=== PATIENT | male | born 1950 | race Caucasian/White ===

== ENCOUNTER 2018-08-10 22:43 | Inpatient (IN) ==
--- NOTE | 2018-08-10 22:58 | Emergency Department Note ---
Disposition Clinical Impression: Elevated troponin Sepsis Qualifiers: Sepsis type: sepsis due to unspecified organism Qualified Code(s): A41.9 - Sepsis, unspecified organism Urinary tract infection Qualifiers: Urinary tract infection type: acute cystitis Hematuria presence: with hematuria Qualified Code(s): N30.01 - Acute cystitis with hematuria Disposition: Admitted As Inpatient Condition: Fair General Adult HPI - General Stated complaint: fall, altered mental status Time Seen by Provider: 08/10/18 22:43 Nursing Notes Reviewed: Yes Vital Signs Reviewed: Yes - Related Data Home Medications Medication Instructions Recorded Confirmed Albuterol Sulfate [Albuterol 2 puff IH Q4HR 12/12/15 08/11/18 Inhaler] Insulin ASPART [NovoLOG] 15 - 20 unit SQ TIDWM 12/12/15 11/03/17 Insulin Glargine [Lantus] 65 unit SQ HS 12/12/15 08/11/18 Losartan Potassium [Cozaar] 100 mg PO DAILY 12/12/15 08/11/18 Acetaminophen [Tylenol] 500 mg PO BID 12/15/15 08/11/18 Albuterol Sulfate [Proair 90 mcg IH 01/17/16 Respiclick] Carvedilol [Coreg] 12.5 mg PO BID 01/17/16 08/11/18 Fenofibrate Nanocrystallized 145 mg PO QDPC 01/17/16 08/11/18 [Tricor] Furosemide [Lasix] 40 mg PO BID 01/17/16 08/11/18 Gabapentin [Neurontin] 300 mg PO BID 01/17/16 08/11/18 Pravastatin Sodium [Pravachol] 40 mg PO QDPC 01/17/16 08/11/18 Ascorbate Calcium 500 PO 08/11/18 Calcium 500 mg-Vit D3 600 Unit 500 PO 08/11/18 Cyanocobalamin (B-12) [Vitamin B12] 1,000 mcg PO DAILY 08/11/18 08/11/18 Fish Oil/Om-3/E/Folic/B6-B12 1,000 mg 08/11/18 Allergies Allergy/AdvReac Type Severity Reaction Status Date / Time moxifloxacin [From Avelox] Allergy See Verified 11/03/17 13:21 Comments Neomycin Allergy See Verified 11/03/17 13:21 Comments Penicillins Allergy See Verified 07/07/18 13:21 Comments Sulfa (Sulfonamide Allergy See Verified 11/03/17 13:21 Antibiotics) Comments Past Medical History - Past Medical History Medical history: Reports: non-contributory Psychiatric history: Reports: anxiety - Social History Smoking Status: Never smoker Smokeless Tobacco Status: No Alcohol use: Reports: occasionally Drug use: Reports: none Course Vital Signs Temperature 102.7 F H 08/10/18 22:47 Pulse Rate 93 08/10/18 22:47 Respiratory Rate 20 08/10/18 22:47 Blood Pressure 156/71 08/10/18 22:47 O2 Sat by Pulse Oximetry 92 08/10/18 22:47 Temperature 100.9 F H 08/11/18 04:15 Pulse Rate 83 08/11/18 04:15 Respiratory Rate 18 08/11/18 04:15 Blood Pressure 136/65 08/11/18 04:15 O2 Sat by Pulse Oximetry 99 08/11/18 04:15 Oxygen Delivery Oxygen Delivery Nasal Cannula Medical Decision Making - Medical Records Medical records reviewed: Yes I reviewed the patient's medical records. - Lab Data Lab results reviewed: Yes I reviewed the patient's lab results. Result diagrams: 08/11/18 04:42 08/11/18 04:42 Lab Results 08/10/18 08/10/18 08/10/18 Range/Units 23:06 23:06 23:12 WBC (4.3-11.1) K/mcL RBC (4.19-5.50) M/mcL Hgb (12.9-16.9) g/dL Hct (37.5-50.1) % MCV (83.0-100.0) fL MCH (28.0-33.3) pg MCHC (31.6-35.5) g/dL RDW (11.5-14.5) % Plt Count (140-400) K/mcL MPV (9.4-12.4) fL Immature Gran % (0-4) % Seg Neutrophils % % Lymphocytes % % Monocytes % % Eosinophils % % Basophils % % Neutrophils # (1.6-8.9) K/mcL Lymphocytes # (0.6-4.6) K/mcL Monocytes # (0.0-1.3) K/mcL Eosinophils # (0.0-0.6) K/mcL Basophils # (0.0-0.2) K/mcL PT 13.9 H (9.4-12.1) Seconds INR 1.2 APTT 18.2 L (26.0-36.0) Seconds Sodium 130 L (136-145) mEq/L Potassium 4.2 (3.5-5.1) mEq/L Chloride 97 L (98-107) mEq/L Carbon Dioxide 23 (23-29) mEq/L BUN 45 H (8-23) mg/dL Creatinine 3.35 H (0.70-1.30) mg/dL Est GFR ( Amer) 22 L (> 60) Est GFR (Non-Af Amer) 18 L (> 60) BUN/Creatinine Ratio 13 (6-26) Glucose 297 H (70-105) mg/dL Calculated Osmolality 293 (280-300) Lactic Acid 1.3 (0.5-2.2) mmol/L Calcium 9.4 (8.6-10.3) mg/dL Phosphorus 2.5 L (2.7-4.5) mg/dL Magnesium 2.2 (1.6-2.6) mg/dL Total Bilirubin 0.6 (0.3-1.0) mg/dL Direct Bilirubin 0.2 (0.0-0.2) mg/dL Indirect Bilirubin 0.4 (0.0-1.2) mg/dL AST 40 H (13-39) Units/L ALT 18 (7-52) Units/L Alkaline Phosphatase 47 (34-104) Units/L Troponin I 0.34 H* (< 0.04) ng/mL Serum Total Protein 7.3 (6.4-8.9) g/dL Albumin 3.8 (3.5-5.7) g/dL Globulin 3.5 (2.4-3.5) g/dL Albumin/Globulin Ratio 1.1 (1.1-2.2) Lipase 46 (11-82) Units/L Urine Color (Yellow) Urine Clarity (Clear) Urine pH (5.0-8.0) pH Units Ur Specific [place] (1.010-1.025) Urine Protein (Neg-Trace) mg/dL Urine Glucose (UA) (Normal) mg/dL Urine Ketones (Negative) mg/dL Urine Blood (Negative) Urine Nitrite (Negative) Urine Bilirubin (Negative) Urine Urobilinogen (Normal) mg/dL Ur Leukocyte Esterase (Negative) Urine Microscopic RBC (0-3) per hpf Urine Microscopic WBC (0-3) per hpf Ur Squamous Epith Cells (None-Few) per lpf Urine Bacteria (None-Few) per hpf Hyaline Casts (None-Few) per lpf Ur Culture Indicated? (NO) Specimen Rejected 08/10/18 08/10/18 08/11/18 Range/Units 23:17 23:56 00:26 WBC 12.3 H (4.3-11.1) K/mcL RBC 3.44 L (4.19-5.50) M/mcL Hgb 10.4 L (12.9-16.9) g/dL Hct 31.9 L (37.5-50.1) % MCV 92.7 (83.0-100.0) fL MCH 30.2 (28.0-33.3) pg MCHC 32.6 (31.6-35.5) g/dL RDW 16.1 H (11.5-14.5) % Plt Count 163 (140-400) K/mcL MPV 10.1 (9.4-12.4) fL Immature Gran % 0.9 (0-4) % Seg Neutrophils % 86.1 % Lymphocytes % 6.3 % Monocytes % 6.5 % Eosinophils % 0.1 % Basophils % 0.1 % Neutrophils # 10.6 H (1.6-8.9) K/mcL Lymphocytes # 0.8 (0.6-4.6) K/mcL Monocytes # 0.8 (0.0-1.3) K/mcL Eosinophils # 0.0 (0.0-0.6) K/mcL Basophils # 0.0 (0.0-0.2) K/mcL PT (9.4-12.1) Seconds INR APTT (26.0-36.0) Seconds Sodium (136-145) mEq/L Potassium (3.5-5.1) mEq/L Chloride (98-107) mEq/L Carbon Dioxide (23-29) mEq/L BUN (8-23) mg/dL Creatinine (0.70-1.30) mg/dL Est GFR ( Amer) (> 60) Est GFR (Non-Af Amer) (> 60) BUN/Creatinine Ratio (6-26) Glucose (70-105) mg/dL Calculated Osmolality (280-300) Lactic Acid (0.5-2.2) mmol/L Calcium (8.6-10.3) mg/dL Phosphorus (2.7-4.5) mg/dL Magnesium (1.6-2.6) mg/dL Total Bilirubin (0.3-1.0) mg/dL Direct Bilirubin (0.0-0.2) mg/dL Indirect Bilirubin (0.0-1.2) mg/dL AST (13-39) Units/L ALT (7-52) Units/L Alkaline Phosphatase (34-104) Units/L Troponin I (< 0.04) ng/mL Serum Total Protein (6.4-8.9) g/dL Albumin (3.5-5.7) g/dL Globulin (2.4-3.5) g/dL Albumin/Globulin Ratio (1.1-2.2) Lipase (11-82) Units/L Urine Color Yellow (Yellow) Urine Clarity Hazy (Clear) Urine pH 7.0 (5.0-8.0) pH Units Ur Specific [place] 1.008 L (1.010-1.025) Urine Protein 100 H (Neg-Trace) mg/dL Urine Glucose (UA) 250 H (Normal) mg/dL Urine Ketones Negative (Negative) mg/dL Urine Blood Large H (Negative) Urine Nitrite Negative (Negative) Urine Bilirubin Negative (Negative) Urine Urobilinogen Normal (Normal) mg/dL Ur Leukocyte Esterase Small H (Negative) Urine Microscopic RBC 5-15 H (0-3) per hpf Urine Microscopic WBC 50-100 H (0-3) per hpf Ur Squamous Epith Cells Moderate H (None-Few) per lpf Urine Bacteria Many H (None-Few) per hpf Hyaline Casts None Seen (None-Few) per lpf Ur Culture Indicated? YES A (NO) Specimen Rejected Clotted - Radiology Data Radiology results reviewed: Yes I reviewed the patient's radiology results. Chest X-Ray 08/10/18 22:51 IMPRESSION: No acute abnormality D/ / Buck Rdz / Buck Rdz Interpreting Provider: Buck Rdz Abdomen/Pelvis CT 08/11/18 00:01 IMPRESSION: Circumferential urinary bladder wall thickening with mild surrounding fat stranding, suspicious for cystitis. Mild left hydroureter with ureteritis but no appreciable obstructing stone. This could potentially indicate ascending urinary tract infection. Cholelithiasis without evidence of cholecystitis. Mild hepatomegaly with steatosis. D/ / Omega Robledo / Omega Robledo Interpreting Provider: Omega Robledo Head CT 08/11/18 00:01 IMPRESSION: 1. No intracranial hemorrhage or acute transcortical infarct. 2. Mild to moderate white matter hypoattenuation, likely the sequela of chronic small vessel ischemia. If there is persistent clinical concern for acute ischemia, MRI would be the more sensitive modality. 3. Generalized parenchymal volume loss. D/ / Mt Patel / Mt Patel Interpreting Provider: Mt Patel - EKG Data EKG #1 EKG attestation: Yes I reviewed and interpreted this EKG. EKG results narrative: EKG shows normal sinus rhythm with ventricular rate of 93. Low voltage in precordial leads. No significant ST segment elevation or depression. No arrhythmia or ectopy. No significant change from prior EKG dated 03/06/2016. Critical Care Time Critical Care Time: Yes Total Critical Care Time: 45 Attestation: Critical care performed: Time is exclusive of separately billable procedures. Time includes: direct patient care, patient reassessment, coordination of patient care, interpretation of data (laboratory data, radiology data, and respiratory data), review of patient's medical records, medical consultation and documentation of patient care. Procedures included in critical care time: Procedures excluded from critical care time: Attestation Statement - Attestation Attestation: I, Navid Gimenez MD, personally evaluated this patient and discussed their management with the resident physician. I reviewed the resident's note and agree with the documented findings, medical decision making, and plan of care. 68-year-old male presents to the emergency department by EMS. reports that she has been staying with their son for the past few days because he had surgery and the patient had been staying at home alone. She states that when she talked him on the phone over the past few days he did not sound right and sounded week and a little confused. She came home this afternoon and he was just lying on the couch. She had to help him to the bathroom and gave him a bath. This is not normal. She also states he would need or drink anything. He felt very hot and she gave him some Tylenol. He then apparently fell forward in the floor on his knees and elbows and was unable to get up. EMS reports on their arrival the patient was confused and oriented to person only. By the time they arrived here he was more alert and oriented to person and place. He was also incontinent of urine which is not normal for him. He does admit to some mild pain in the left mid chest. No significant cardiac history. He admits to mild shortness of breath. He does not appear short of breath. He has had a mild cough. On examination patient is a well-developed obese elderly male in no acute distress. He is alert and oriented to person and place but not time. There is no cyanosis or diaphoresis. Mucous membranes are very dry. Chest is nontender to palpation. Breath sounds are clear and equal bilaterally with no rales or wheezes noted. Heart regular with a slight tachycardia. Abdomen soft and nontender with normal bowel sounds. Severe sepsis suspected on arrival. Temperature 102.7, tachycardia, altered mental status. Source is most likely urinary. EKG shows normal sinus rhythm with ventricular rate of 93. Low voltage in precordial leads. No significant ST segment elevation or depression. No arrhythmia or ectopy. No significant change from prior EKG dated 03/06/2016. Chest x-ray. CT the abdomen and pelvis consistent with cystitis and ureteritis suggesting ascending urinary tract infection. Labs reviewed. Lactic acid normal. Elevated creatinine and elevated troponin. Blood cultures obtained. IV Rocephin initiated. The hospitalist, Dr. Galloway, was consulted and accepted admission of the patient.
[2018-08-10 23:30] LABS: INR 1.2; Prothrombin Time 13.9 Seconds (9.4-12.1)
[2018-08-10] MEDS: 0.9 % Sodium Chloride 1,000 ML IVC SCH (23:35)
[2018-08-10 23:45] LABS: Albumin 3.8 g/dL (3.5-5.7); Albumin/Globulin Ratio 1.1 (1.1-2.2); Bilirubin,Direct 0.2 mg/dL (0.0-0.2); Bilirubin,Indirect 0.4 mg/dL (0.0-1.2); Bilirubin,Total 0.6 mg/dL (0.3-1.0); Calcium 9.4 mg/dL (8.6-10.3); Globulin 3.5 g/dL (2.4-3.5); Magnesium 2.2 mg/dL (1.6-2.6); Phosphorous 2.5 mg/dL (2.7-4.5); Potassium 4.2 mEq/L (3.5-5.1); Total Protein 7.3 g/dL (6.4-8.9)
[2018-08-10 23:49] LABS: Troponin I 0.34 ng/mL (< 0.04)
--- NOTE | 2018-08-10 23:51 | Emergency Department Note ---
Disposition Clinical Impression: Elevated troponin Sepsis Qualifiers: Sepsis type: sepsis due to unspecified organism Qualified Code(s): A41.9 - Sepsis, unspecified organism Urinary tract infection Qualifiers: Urinary tract infection type: acute cystitis Hematuria presence: with hematuria Qualified Code(s): N30.01 - Acute cystitis with hematuria Disposition: Admitted As Inpatient Condition: Fair Referrals: Susie Blake [employer] C[employer] DIPPER [Primary Care Provider] - Time of Disposition: 02:22 Altered Mental Status HPI - General Chief Complaint: ED Altered Mental Status Stated Complaint: fall, altered mental status Time Seen by Provider: 08/10/18 22:43 Source: family, EMS Mode of arrival: EMS Limitations: altered mental status Nursing Notes Reviewed: Yes Vital Signs Reviewed: Yes - History of Present Illness HPI Narrative: 68-year-old male penis to the emergency department with a fall and altered mental status. Says been home alone as they have family that has having other medical issues the is been taking care of for about 2 or 3 days. Said that she did come on tonight she was lying in bed he was on the couch she said she got up andhe was on the ground and had soiled himself. They noticed he was very warm to touch they said to call EMS. Patient states that he is not having any complaints other than mild chest pain mild cough mild abdominal pain and some burning with his urination. He normally is not incontinent but was while he was lying on the ground. He stated did not hit his head did not lose consciousness. Patient otherwise has no other complaints at this time. He does have history of diabetes, ACS with cardiac stent placement. Patient otherwise has no other complaints at this time. - Related Data Home Medications Medication Instructions Recorded Confirmed Albuterol Sulfate [Albuterol 2 puff IH Q4HR 12/12/15 11/03/17 Inhaler] Insulin ASPART [NovoLOG] 15 - 20 unit SQ TIDWM 12/12/15 11/03/17 Insulin Glargine [Lantus] 65 unit SQ HS 12/12/15 11/03/17 Losartan Potassium [Cozaar] 100 mg PO DAILY 12/12/15 11/03/17 Acetaminophen [Tylenol] 500 mg PO BID 12/15/15 11/03/17 Albuterol Sulfate [Proair 90 mcg IH 01/17/16 Respiclick] Carvedilol [Coreg] 12.5 mg PO BID 01/17/16 11/03/17 Fenofibrate Nanocrystallized 145 mg PO QDPC 01/17/16 11/03/17 [Tricor] Furosemide [Lasix] 40 mg PO BID 01/17/16 11/03/17 Gabapentin [Neurontin] 300 mg PO BID 01/17/16 11/03/17 Pravastatin Sodium [Pravachol] 40 mg PO QDPC 01/17/16 11/03/17 Ascorbate Calcium 500 PO 08/11/18 Calcium 500 mg-Vit D3 600 Unit 500 PO 08/11/18 Fish Oil/Om-3/E/Folic/B6-B12 1,000 mg 08/11/18 Allergies Allergy/AdvReac Type Severity Reaction Status Date / Time moxifloxacin [From Avelox] Allergy See Verified 11/03/17 13:21 Comments Neomycin Allergy See Verified 11/03/17 13:21 Comments Penicillins Allergy See Verified 11/03/17 13:21 Comments Sulfa (Sulfonamide Allergy See Verified 11/03/17 13:21 Antibiotics) Comments All systems ED: reviewed and negative except as stated. Review of Systems: As Per HPI Past Medical History - Past Medical History Attestation: Yes The following information was validated with the patient. Source: patient Medical history: Reports: non-contributory Psychiatric history: Reports: anxiety - Social History Smoking Status: Never smoker Smokeless Tobacco Status: No Alcohol use: Reports: occasionally Drug use: Reports: none Physical Exam - General Limitations: altered mental status General appearance: alert - Head Head exam: atraumatic, normocephalic, normal inspection - Eye Eye exam: Present: normal appearance, PERRL, EOMI - ENT ENT exam: normal exam, normal oropharynx, mucous membranes moist - Neck Neck exam: Present: normal inspection, full ROM, trachea midline - Chest Chest inspection: Present: normal inspection, symmetric chest wall rise - Respiratory Respiratory exam: Present: normal lung sounds bilaterally. Absent: respiratory distress, wheezes, accessory muscle use - Cardiovascular Cardiovascular exam: Present: regular rate, normal rhythm, normal heart sounds - Abdominal Exam Abdominal exam: Present: soft, tenderness (I will tenderness diffusely across the abdomen), normal bowel sounds. Absent: distention, guarding, rebound, rigidity - Extremities Exam Extremities exam: Present: normal inspection, full ROM. Absent: tenderness, pedal edema - Back Exam Back exam: Present: normal inspection, full ROM. Absent: tenderness, CVA tenderness (R), CVA tenderness (L) - Neurological Exam Neurological exam: Present: alert - Expanded Neurological Exam Patient oriented to: Present: person, place, time Coma Scale Eye Opening: Spontaneous Coma Scale Motor Response: Obeys Commands Coma Scale Verbal Response: Confused Coma Scale Total: 14 - Skin Skin exam: Present: warm, dry, intact, normal color Course Course Narrative: Patient does meet severe sepsis criteria. I did give patient full 30 mL/kg bolus of IV fluids. We did get cultures as well as basic labs here we will get CT of his head abdomen. We will also get chest x-ray. We will hold off on giving antibiotics until we get a source of the infection. We will also urinalysis via straight catheterization. Patient most likely will be admitted for further evaluation. Patient did not meet septic shock criteria. His blood pressures been stable while he is here. Vital Signs Temperature 102.7 F H 08/10/18 22:47 Pulse Rate 93 08/10/18 22:47 Respiratory Rate 20 08/10/18 22:47 Blood Pressure 156/71 08/10/18 22:47 O2 Sat by Pulse Oximetry 92 08/10/18 22:47 Temperature 102.7 F H 08/10/18 22:47 Pulse Rate 85 08/11/18 01:42 Respiratory Rate 20 08/11/18 01:42 Blood Pressure 129/74 08/11/18 01:42 O2 Sat by Pulse Oximetry 98 08/11/18 01:42 Oxygen Delivery Oxygen Delivery Room Air Altered Mental Status - [facility] Narrative Medical decision making narrative: 68-year-old male presented here with altered mental status. Urinalysis did show urinary tract infection labs did show leukocytosis he does have kidney failure which is known with the increasing creatinine. CT abdomen and pelvis did show ureteritis as well as a cystitis. No other acute findings. Chest x-ray also was normal head CT was normal. I did give patient a dose of Rocephin here in the emergency department he also received his 30 mL/kg of IV fluids due to being in severe sepsis. He was not in severe septic shock. After receiving this I reevaluated the patient he is now just sepsis and outside of severe sepsis. Patient at this time I feel can be admitted to the hospitalist for further evaluation and IV antibiotics. Patient did have an elevated troponin he has a history of ACS is unknown what his baseline troponin is the patient is not complaining of chest pain at this time. We will recommend trending the troponins when patient is admitted. Patient family both agree. Patient will be admitted to the hospitalist service I spoke with Dr. Galloway who agreed to admit the patient to their service. Chest X-Ray 08/10/18 22:51 IMPRESSION: No acute abnormality D/ / Buck Rdz / Buck Rdz Interpreting Provider: Buck Rdz Abdomen/Pelvis CT 08/11/18 00:01 IMPRESSION: Circumferential urinary bladder wall thickening with mild surrounding fat stranding, suspicious for cystitis. Mild left hydroureter with ureteritis but no appreciable obstructing stone. This could potentially indicate ascending urinary tract infection. Cholelithiasis without evidence of cholecystitis. Mild hepatomegaly with steatosis. D/ / Omega Robledo / Omega Robledo Interpreting Provider: Omega Robledo Head CT 08/11/18 00:01 IMPRESSION: 1. No intracranial hemorrhage or acute transcortical infarct. 2. Mild to moderate white matter hypoattenuation, likely the sequela of chronic small vessel ischemia. If there is persistent clinical concern for acute ischemia, MRI would be the more sensitive modality. 3. Generalized parenchymal volume loss. D/ / Mt Patel / Mt Patel Interpreting Provider: Mt Patel - Medical Records Medical records reviewed: Yes I reviewed the patient's medical records. - Lab Data Lab results reviewed: Yes I reviewed the patient's lab results. Result diagrams: 08/10/18 23:56 08/10/18 23:06 Lab Results 08/10/18 08/10/18 08/10/18 Range/Units 23:06 23:06 23:12 WBC (4.3-11.1) K/mcL RBC (4.19-5.50) M/mcL Hgb (12.9-16.9) g/dL Hct (37.5-50.1) % MCV (83.0-100.0) fL MCH (28.0-33.3) pg MCHC (31.6-35.5) g/dL RDW (11.5-14.5) % Plt Count (140-400) K/mcL MPV (9.4-12.4) fL Immature Gran % (0-4) % Seg Neutrophils % % Lymphocytes % % Monocytes % % Eosinophils % % Basophils % % Neutrophils # (1.6-8.9) K/mcL Lymphocytes # (0.6-4.6) K/mcL Monocytes # (0.0-1.3) K/mcL Eosinophils # (0.0-0.6) K/mcL Basophils # (0.0-0.2) K/mcL PT 13.9 H (9.4-12.1) Seconds INR 1.2 APTT 18.2 L (26.0-36.0) Seconds Sodium 130 L (136-145) mEq/L Potassium 4.2 (3.5-5.1) mEq/L Chloride 97 L (98-107) mEq/L Carbon Dioxide 23 (23-29) mEq/L BUN 45 H (8-23) mg/dL Creatinine 3.35 H (0.70-1.30) mg/dL Est GFR ( Amer) 22 L (> 60) Est GFR (Non-Af Amer) 18 L (> 60) BUN/Creatinine Ratio 13 (6-26) Glucose 297 H (70-105) mg/dL Calculated Osmolality 293 (280-300) Lactic Acid 1.3 (0.5-2.2) mmol/L Calcium 9.4 (8.6-10.3) mg/dL Phosphorus 2.5 L (2.7-4.5) mg/dL Magnesium 2.2 (1.6-2.6) mg/dL Total Bilirubin 0.6 (0.3-1.0) mg/dL Direct Bilirubin 0.2 (0.0-0.2) mg/dL Indirect Bilirubin 0.4 (0.0-1.2) mg/dL AST 40 H (13-39) Units/L ALT 18 (7-52) Units/L Alkaline Phosphatase 47 (34-104) Units/L Troponin I 0.34 H* (< 0.04) ng/mL Serum Total Protein 7.3 (6.4-8.9) g/dL Albumin 3.8 (3.5-5.7) g/dL Globulin 3.5 (2.4-3.5) g/dL Albumin/Globulin Ratio 1.1 (1.1-2.2) Lipase 46 (11-82) Units/L Urine Color (Yellow) Urine Clarity (Clear) Urine pH (5.0-8.0) pH Units Ur Specific [place] (1.010-1.025) Urine Protein (Neg-Trace) mg/dL Urine Glucose (UA) (Normal) mg/dL Urine Ketones (Negative) mg/dL Urine Blood (Negative) Urine Nitrite (Negative) Urine Bilirubin (Negative) Urine Urobilinogen (Normal) mg/dL Ur Leukocyte Esterase (Negative) Urine Microscopic RBC (0-3) per hpf Urine Microscopic WBC (0-3) per hpf Ur Squamous Epith Cells (None-Few) per lpf Urine Bacteria (None-Few) per hpf Hyaline Casts (None-Few) per lpf Ur Culture Indicated? (NO) Specimen Rejected 08/10/18 08/10/18 08/11/18 Range/Units 23:17 23:56 00:26 WBC 12.3 H (4.3-11.1) K/mcL RBC 3.44 L (4.19-5.50) M/mcL Hgb 10.4 L (12.9-16.9) g/dL Hct 31.9 L (37.5-50.1) % MCV 92.7 (83.0-100.0) fL MCH 30.2 (28.0-33.3) pg MCHC 32.6 (31.6-35.5) g/dL RDW 16.1 H (11.5-14.5) % Plt Count 163 (140-400) K/mcL MPV 10.1 (9.4-12.4) fL Immature Gran % 0.9 (0-4) % Seg Neutrophils % 86.1 % Lymphocytes % 6.3 % Monocytes % 6.5 % Eosinophils % 0.1 % Basophils % 0.1 % Neutrophils # 10.6 H (1.6-8.9) K/mcL Lymphocytes # 0.8 (0.6-4.6) K/mcL Monocytes # 0.8 (0.0-1.3) K/mcL Eosinophils # 0.0 (0.0-0.6) K/mcL Basophils # 0.0 (0.0-0.2) K/mcL PT (9.4-12.1) Seconds INR APTT (26.0-36.0) Seconds Sodium (136-145) mEq/L Potassium (3.5-5.1) mEq/L Chloride (98-107) mEq/L Carbon Dioxide (23-29) mEq/L BUN (8-23) mg/dL Creatinine (0.70-1.30) mg/dL Est GFR ( Amer) (> 60) Est GFR (Non-Af Amer) (> 60) BUN/Creatinine Ratio (6-26) Glucose (70-105) mg/dL Calculated Osmolality (280-300) Lactic Acid (0.5-2.2) mmol/L Calcium (8.6-10.3) mg/dL Phosphorus (2.7-4.5) mg/dL Magnesium (1.6-2.6) mg/dL Total Bilirubin (0.3-1.0) mg/dL Direct Bilirubin (0.0-0.2) mg/dL Indirect Bilirubin (0.0-1.2) mg/dL AST (13-39) Units/L ALT (7-52) Units/L Alkaline Phosphatase (34-104) Units/L Troponin I (< 0.04) ng/mL Serum Total Protein (6.4-8.9) g/dL Albumin (3.5-5.7) g/dL Globulin (2.4-3.5) g/dL Albumin/Globulin Ratio (1.1-2.2) Lipase (11-82) Units/L Urine Color Yellow (Yellow) Urine Clarity Hazy (Clear) Urine pH 7.0 (5.0-8.0) pH Units Ur Specific [place] 1.008 L (1.010-1.025) Urine Protein 100 H (Neg-Trace) mg/dL Urine Glucose (UA) 250 H (Normal) mg/dL Urine Ketones Negative (Negative) mg/dL Urine Blood Large H (Negative) Urine Nitrite Negative (Negative) Urine Bilirubin Negative (Negative) Urine Urobilinogen Normal (Normal) mg/dL Ur Leukocyte Esterase Small H (Negative) Urine Microscopic RBC 5-15 H (0-3) per hpf Urine Microscopic WBC 50-100 H (0-3) per hpf Ur Squamous Epith Cells Moderate H (None-Few) per lpf Urine Bacteria Many H (None-Few) per hpf Hyaline Casts None Seen (None-Few) per lpf Ur Culture Indicated? YES A (NO) Specimen Rejected Clotted - Radiology Data Radiology results reviewed: Yes I reviewed the patient's radiology results. - EKG Data EKG attestation: Yes I reviewed and interpreted this EKG. EKG results narrative: EKG done at 2254 review myself and attending shows sinus rhythm at a rate of 93, IA 149, QRS 108, QTC 443. There is no acute ST changes no acute T-wave changes no other signs of ischemia. No hypertrophy, heart strain, heart block. No WPW/Brugada/HOCM. EKG unchanged when compared with old one done on 03/06/16 TPA Checklist - LKW: 3-4.5 hrs Add. Warnings/Precautions Patient/family understanding: The patient/family members have been counseled and understood the risk, benefit, and alternatives of treatment. Sepsis Reassessment Note - Evaluation Sepsis Screen: No Definite Risk Current Stage of Sepsis: sepsis Possible Source of Sepsis: genitourinary - Focused Exam Date of Encounter: 08/11/18 Time of Encounter: 01:23 Vital Signs: Vital Signs Temp Pulse Resp BP Pulse Ox 08/11/18 01:42 85 20 129/74 98 08/11/18 00:28 90 20 115/63 98 08/10/18 22:47 102.7 F H 93 20 156/71 92 Respiratory Exam: Present: CTA bilaterally Cardiovascular Exam: Present: RRR Capillary Refill: < 2 seconds Peripheral Pulse Strength: 3+ normal Peripheral Pulse Location: Radial Skin Exam: normal turgor
[2018-08-11 00:10] LABS: Activated Partial Thrombo Time 18.2 Seconds (26.0-36.0)
[2018-08-11 00:22] LABS: Basophils % 0.1 %; Eosinophils % 0.1 %; Hematocrit 31.9 % (37.5-50.1); Hemoglobin 10.4 g/dL (12.9-16.9); Immature Granulocytes % 0.9 % (0-4); Lymphocytes # 0.8 K/mcL (0.6-4.6); Lymphocytes % 6.3 %; Mean Corpuscular HGB Conc 32.6 g/dL (31.6-35.5); Mean Corpuscular Hemoglobin 30.2 pg (28.0-33.3); Mean Corpuscular Volume 92.7 fL (83.0-100.0); Mean Platelet Volume 10.1 fL (9.4-12.4); Monocytes # 0.8 K/mcL (0.0-1.3); Monocytes % 6.5 %; Neutrophils # 10.6 K/mcL (1.6-8.9); Platelet Count 163 K/mcL (140-400); Red Blood Count 3.44 M/mcL (4.19-5.50); Red Cell Distribution Width 16.1 % (11.5-14.5); Segmented Neutrophils % 86.1 %
[2018-08-11 00:38] LABS: Bilirubin,Urine Negative (Negative); Blood,Urine Large (Negative); Color,Urine Yellow (Yellow); Glucose,Urine (UA) 250 mg/dL (Normal); Ketones,Urine Negative (Negative); Leukocyte Esterase,Urine Small (Negative); Nitrite,Urine Negative (Negative); Protein,Urine 100 mg/dL (Neg-Trace); Specific Gravity,Urine 1.008 (1.010-1.025); Urobilinogen,Urine Normal (Normal)
[2018-08-11 00:40] LABS: Bacteria,Urine Many per hpf (None-Few); Hyaline Casts,Urine None Seen per lpf (None-Few); Squamous Epithelial Cell,Urine Moderate per lpf (None-Few); WBC,Urine 50-100 per hpf (0-3)
[2018-08-11 00:54] LABS: Clarity,Urine Hazy (Clear)
[2018-08-11] MEDS ORDERED: cefTRIAXone 1,000 MG in Water for inj. (sterile) 20 ML 10 ML IVPB ONE (01:22)
[2018-08-11] MEDS: 0.9 % Sodium Chloride 1,000 ML IVC SCH ×2 (01:41→04:44)
[2018-08-11] MEDS ORDERED: Naloxone 0.4 MG/ML INJ IVP PRN (03:02)
[2018-08-11] MEDS ORDERED: Nitroglycerin 0.4 MG TAB.SUBL SL PRN (03:05)
[2018-08-11] MEDS ORDERED: *HR* Dextrose 50 % in Water (Syg) 50 ML SYRINGE IVP PRN (03:35)
[2018-08-11] MEDS ORDERED: D5% in Water 1,000 ML IVC PRN (03:35)
[2018-08-11] MEDS ORDERED: Dextrose Gel 15 GM/37.5 ML TUBE PO PRN ×2 (03:35)
--- NOTE | 2018-08-11 03:39 | Internal Med History&Physical ---
<Ame Galloway - Last Filed: 08/11/18 06:21> Date of Encounter: 08/11/18 Internal Medicine - H&P: HPI History of present illness: Mr. Gooden is a 68 year old male Internal Medicine - H&P: Meds Albuterol Sulfate [Albuterol Inhaler] 2 puff IH Q4HR 12/12/15 [History] Insulin ASPART [NovoLOG] 15 - 20 unit SQ TIDWM 12/12/15 [History] Insulin Glargine [Lantus] 65 unit SQ HS 12/12/15 [History] Losartan Potassium [Cozaar] 100 mg PO DAILY 12/12/15 [History] Acetaminophen [Tylenol] 500 mg PO BID 12/15/15 [History] Albuterol Sulfate [Proair Respiclick] 90 mcg IH 01/17/16 [History] Carvedilol [Coreg] 12.5 mg PO BID 01/17/16 [History] Fenofibrate Nanocrystallized [Tricor] 145 mg PO QDPC 01/17/16 [History] Furosemide [Lasix] 40 mg PO BID 01/17/16 [History] Gabapentin [Neurontin] 300 mg PO BID 01/17/16 [History] Pravastatin Sodium [Pravachol] 40 mg PO QDPC 01/17/16 [History] Ascorbate Calcium 500 PO 08/11/18 [History] Calcium 500 mg-Vit D3 600 Unit 500 PO 08/11/18 [History] Cyanocobalamin (B-12) [Vitamin B12] 1,000 mcg PO DAILY 08/11/18 [History] Fish Oil/Om-3/E/Folic/B6-B12 1,000 mg 08/11/18 [History] Allergy/AdvReac Type Severity Reaction Status Date / Time moxifloxacin [From Avelox] Allergy See Verified 11/03/17 13:21 Comments Neomycin Allergy See Verified 11/03/17 13:21 Comments Penicillins Allergy See Verified 11/03/17 13:21 Comments Sulfa (Sulfonamide Allergy See Verified 11/03/17 13:21 Antibiotics) Comments All Systems PM: A 10-system review of systems was performed and is negative for pertinent findings except as documented above in the HPI. - Constitutional Vitals: Temp Pulse Resp BP Pulse Ox 100.9 F H 83 18 136/65 99 08/11/18 04:15 08/11/18 04:15 08/11/18 04:15 08/11/18 04:15 08/11/18 04:15 Internal Med - H&P Results - Labs CBC & Chem 7: 08/11/18 04:42 08/11/18 04:42 Labs: Short CBC 08/10/18 08/11/18 Range/Units 23:56 04:42 WBC 12.3 H 12.0 H (4.3-11.1) K/mcL Hgb 10.4 L 9.5 L (12.9-16.9) g/dL Hct 31.9 L 29.1 L (37.5-50.1) % Plt Count 163 153 (140-400) K/mcL Neutrophils # 10.6 H 10.0 H (1.6-8.9) K/mcL BMP 08/10/18 08/11/18 23:06 04:42 Sodium 130 L 134 L Potassium 4.2 4.3 Chloride 97 L 101 Carbon Dioxide 23 26 BUN 45 H 43 H Creatinine 3.35 H 3.17 H Glucose 297 H 283 H Calcium 9.4 8.6 Cardiac Enzymes 08/10/18 08/11/18 Range/Units 23:06 04:42 Troponin I 0.34 H* 0.06 H* (< 0.04) ng/mL Liver Function 08/10/18 08/11/18 Range/Units 23:06 04:42 Total Bilirubin 0.6 0.6 (0.3-1.0) mg/dL Direct Bilirubin 0.2 (0.0-0.2) mg/dL AST 40 H 30 (13-39) Units/L ALT 18 16 (7-52) Units/L Alkaline Phosphatase 47 42 (34-104) Units/L Albumin 3.8 3.4 L (3.5-5.7) g/dL Urine 08/11/18 Range/Units 00:26 Urine Color Yellow (Yellow) Urine Clarity Hazy (Clear) Urine pH 7.0 (5.0-8.0) pH Units Ur Specific [place] 1.008 L (1.010-1.025) Urine Protein 100 H (Neg-Trace) mg/dL Urine Glucose (UA) 250 H (Normal) mg/dL - Impressions ITS Impressions Chest X-Ray 08/10/18 22:51 IMPRESSION: No acute abnormality D/ / Buck Rdz / Buck Rdz Interpreting Provider: Buck Rdz Abdomen/Pelvis CT 08/11/18 00:01 IMPRESSION: Circumferential urinary bladder wall thickening with mild surrounding fat stranding, suspicious for cystitis. Mild left hydroureter with ureteritis but no appreciable obstructing stone. This could potentially indicate ascending urinary tract infection. Cholelithiasis without evidence of cholecystitis. Mild hepatomegaly with steatosis. D/ / Omega Robledo / Omega Rolbedo Interpreting Provider: Omega Robledo Head CT 08/11/18 00:01 IMPRESSION: 1. No intracranial hemorrhage or acute transcortical infarct. 2. Mild to moderate white matter hypoattenuation, likely the sequela of chronic small vessel ischemia. If there is persistent clinical concern for acute ischemia, MRI would be the more sensitive modality. 3. Generalized parenchymal volume loss. D/ / Mt Patel / Mt Patel Interpreting Provider: Mt Patel - Assessment and Plan (1) Sepsis Current Visit: Yes Status: Acute Qualifiers: Sepsis type: sepsis due to unspecified organism Qualified Code(s): A41.9 - Sepsis, unspecified organism (2) Urinary tract infection Current Visit: Yes Status: Acute Qualifiers: Urinary tract infection type: acute cystitis Hematuria presence: with hematuria Qualified Code(s): N30.01 - Acute cystitis with hematuria (3) Elevated troponin Current Visit: Yes Status: Acute (4) Diabetes Current Visit: Yes Status: Chronic Qualifiers: Diabetes mellitus type: type 2 Diabetes mellitus correction insulin use: with intermediate project manager use Diabetes mellitus complication status: with neurologic complications Diabetes mellitus complication detail: with unspecified neuropathy Qualified Code(s): E11.40 - Type 2 diabetes mellitus with diabetic neuropathy, unspecified; Z79.4 - ferry terminal agent (current) use of insulin (5) Altered mental status Current Visit: Yes Status: Resolved (6) Hypertension Current Visit: Yes Status: Chronic Qualifiers: Hypertension type: essential hypertension Qualified Code(s): I10 - Essential (primary) hypertension (7) Peripheral neuropathy Current Visit: Yes Status: Chronic Qualifiers: Peripheral neuropathy type: polyneuropathy associated with underlying disease Qualified Code(s): G63 - Polyneuropathy in diseases classified elsewhere (8) Obstructive sleep apnea Current Visit: Yes Status: Chronic (9) Hyperlipidemia Current Visit: Yes Status: Chronic (10) Morbid obesity Current Visit: Yes Status: Chronic (11) DVT prophylaxis Current Visit: Yes Status: Acute (12) Hyponatremia Current Visit: Yes Status: Acute (13) Acute kidney injury superimposed on chronic kidney disease Current Visit: Yes Status: Acute (14) Anemia Current Visit: Yes Status: Acute - Time Spent With Patient Total time spent is greater than 50% in coordination of care (as documented) at patient's floor/unit and/or counseling patient: - Attending Attestation I performed a history and physical exam of the patient and discussed management with the resident. I reviewed the resident's note and agree with the documented findings and plan of care. Best Gooden is a 68 year old male brought in for acute encephalopathy, urinary incontinence and dysuria, found septic based on fever and leukocytosis with a notable UA suggestive of infection. He received 30ml/kg of fluid resuscitation already. Will continue ceftriaxone empirically as we await blood/urine culture results. Troponin elevation is noted but may be part of septic state causing demand ischemia. Will give loading dose of aspirin and continue to trend with an echo also ordered as part of evaluation. <Steffanie Ba - Last Filed: 08/11/18 07:07> Date of Encounter: 08/11/18 Time of Encounter: 02:45 Internal Medicine - H&P: HPI Chief complaint: Recent fall History of present illness: Mr. Gooden is a 68 year old male with past medical history of CKD stage IV, diabetes, previous NE, hypertension, hyperlipidemia, MAYELIN, neuropathy who was presented to the ED via EMS after a fall and altered mental status. He is a poor historian and most of the history was taken from his family and his . His reported for the past 3 days his speech has been nonfluent. She reports she has not been home for a few days because she is taking care of other family number. She reported tonight when she returned from home he was resting on the couch and did not appear well. She reported his speech was nonfluent and he had not taken a shower for days. After she bathed him she reported he was resting on the couch and she heard him asked for help; she subsequently saw he had fallen on the floor and had an episode of urinary incontinence. She also reports for the past few weeks he has fallen out of his bed multiple times per refused to go to the ED during those episodes. At presentation to the ED he had reported chest pain, abdominal pain and dysuria. His chest pain is now resolved. He and the are not sure about hi s medical history. He had a CT of the head which did not show any acute abnormalities but noted mild to moderate white monitor hyperattenuation sequela of chronic small vessel disease. His chest x-ray did not show any findings. His lab noted elevated white blood cell count of 12.3 with hemoglobin of 10.4. He was also noted to have sodium of 1:30 and his urinalysis showed blood, bacteria with leukocyte esterase. Past Med Surg Social Fam HX - Past Medical History Medical history: non-contributory Additional medical history: neuropathy Psychiatric history: anxiety - Past Surgical History Additional surgical history: colonscopy; right knee; dental surgery; carpal tunnel surgery - Social History Smoking Status: Never smoker Smokeless Tobacco Status: No Alcohol use: occasionally Drug use: none - Family History Mother Hx Family Endocrine Disorder: Yes (DM II) All Systems PM: A 10-system review of systems was performed and is negative for pertinent findings except as documented above in the HPI. - Constitutional Constitutional: no chills, no fever(s), no weakness - EENT Eyes: no change in vision, no loss of vision Nose, mouth and throat: dry mouth, no dysphagia, no mouth pain, no sore throat - Cardiovascular Cardiovascular ROS IM: dyspnea, orthopnea, no chest pain, no dyspnea on exertion - Respiratory Respiratory: dyspnea, no cough, no wheezing, no chest congestion - Gastrointestinal Gastrointestinal: abdominal pain, no constipation, no nausea, no vomiting - Musculoskeletal Musculoskeletal ROS IM: no muscle weakness, no numbness, no stiffness, no tingling - Integumentary Integumentary IM: no erythema, no rash, no jaundice - Neurological Neurological ROS: no abnormal speech, no focal weakness, no numbness, no tremor(s) - Psychiatric Psychiatric: no anxiety, no depression - Constitutional Vitals: Temp Pulse Resp BP Pulse Ox 102.7 F H 84 20 129/64 98 08/10/18 22:47 08/11/18 02:28 08/11/18 02:28 08/11/18 02:28 08/11/18 02:28 Exam: Gen: Vitals noted. No acute distress. Appears comfortable. Eyes: anicteric sclerae, moist conjunctivae; no lid-lag; Pupils equal and reactive to light HENT: Atraumatic; oropharynx clear with dry mucous membranes and no mucosal ulcerations; normal hard and soft palate Neck: Trachea midline; supple, no thyromegaly or lymphadenopathy Cardiac: RRR, no murmur, +S1/S2. No JVD noted. Pulmonary: CTA bilaterally, no wheezes, rales or rhonchi, equal chest expansion Abdomen: soft, nontender, no guarding. No masses or hepatosplenomegaly MSK: ROM intact, no joint swelling noted Extremities: no edema, nontender calf Skin: Normal temperature, turgor; no rash, ulcers or subcutaneous nodules Neuro: moves all extremities, no focal deficits. Psych: Appropriate mood and behavior, poor historian, A&Ox3 Internal Med - H&P Results - Labs CBC & Chem 7: 08/11/18 04:42 08/11/18 04:42 Labs: Short CBC 08/10/18 Range/Units 23:56 WBC 12.3 H (4.3-11.1) K/mcL Hgb 10.4 L (12.9-16.9) g/dL Hct 31.9 L (37.5-50.1) % Plt Count 163 (140-400) K/mcL Neutrophils # 10.6 H (1.6-8.9) K/mcL BMP 08/10/18 23:06 Sodium 130 L Potassium 4.2 Chloride 97 L Carbon Dioxide 23 BUN 45 H Creatinine 3.35 H Glucose 297 H Calcium 9.4 Cardiac Enzymes 08/10/18 Range/Units 23:06 Troponin I 0.34 H* (< 0.04) ng/mL Liver Function 08/10/18 Range/Units 23:06 Total Bilirubin 0.6 (0.3-1.0) mg/dL Direct Bilirubin 0.2 (0.0-0.2) mg/dL AST 40 H (13-39) Units/L ALT 18 (7-52) Units/L Alkaline Phosphatase 47 (34-104) Units/L Albumin 3.8 (3.5-5.7) g/dL Urine 08/11/18 Range/Units 00:26 Urine Color Yellow (Yellow) Urine Clarity Hazy (Clear) Urine pH 7.0 (5.0-8.0) pH Units Ur Specific [place] 1.008 L (1.010-1.025) Urine Protein 100 H (Neg-Trace) mg/dL Urine Glucose (UA) 250 H (Normal) mg/dL - Impressions ITS Impressions Chest X-Ray 08/10/18 22:51 IMPRESSION: No acute abnormality D/ / Buck Rdz / Buck Rdz Interpreting Provider: Buck Rdz Abdomen/Pelvis CT 08/11/18 00:01 IMPRESSION: Circumferential urinary bladder wall thickening with mild surrounding fat stranding, suspicious for cystitis. Mild left hydroureter with ureteritis but no appreciable obstructing stone. This could potentially indicate ascending urinary tract infection. Cholelithiasis without evidence of cholecystitis. Mild hepatomegaly with steatosis. D/ / Omega Robledo / Omega Robledo Interpreting Provider: Omega Robledo Head CT 08/11/18 00:01 IMPRESSION: 1. No intracranial hemorrhage or acute transcortical infarct. 2. Mild to moderate white matter hypoattenuation, likely the sequela of chronic small vessel ischemia. If there is persistent clinical concern for acute ischemia, MRI would be the more sensitive modality. 3. Generalized parenchymal volume loss. D/ / Mt Patel / Mt Patel Interpreting Provider: Mt Patel - Assessment and Plan (1) Sepsis Current Visit: Yes Status: Acute Assessment and plan: Likely secondary to UTI Noted to have altered mentation which has significantly improved after fluid and antibiotics His vitals at arrival showed temperature 102.7, heart rate of 93 and respiratory rate of 20 Has received 2 L of IV fluids and ceftriaxone Tachycardia has improved Blood cultures pending Urine cultures pending Continue monitoring vitals Continue ceftriaxone Qualifiers: Sepsis type: sepsis due to unspecified organism Qualified Code(s): A41.9 - Sepsis, unspecified organism (2) Urinary tract infection Current Visit: Yes Status: Acute Assessment and plan: Recent episode of urinary incontinence Urinalysis shows leukocyte esterase and bacteria Urine cultures pending Continue to treat with ceftriaxone Qualifiers: Urinary tract infection type: acute cystitis Hematuria presence: with hematuria Qualified Code(s): N30.01 - Acute cystitis with hematuria (3) Elevated troponin Current Visit: Yes Status: Acute Assessment and plan: Complained of chest pain and troponin was noted to be 0.34. Unsure of the etiology given sepsis, could be cardiac versus demand ischemia His chest pain has resolved. Repeat troponin is 0.06 Echo pending Continue telemetry Nitroglycerin when necessary ordered (4) Acute kidney injury superimposed on chronic kidney disease Current Visit: Yes Status: Acute Assessment and plan: Has history of CKD stage IV and follows outpatient with Dr. Steve Noted to have elevated creatinine at admission was 3.35, repeat is 3.17 and his baseline is around 2 LIOR is likely secondary to UTI and prerenal due to decreased oral intake Continue to treat UTI (5) Anemia Current Visit: Yes Status: Acute Assessment and plan: Normocytic anemia, can be due to CKD vs UTI Noted to have hematuria He denies hematochezia or hematemesis Will continue to monitor (6) Altered mental status Current Visit: Yes Status: Resolved Assessment and plan: Presented to the ED via EMS after a fall and was noted to be altered Could be secondary to sepsis versus UTI versus hyponatremia After receiving fluids and antibiotics his altered mental status has significantly improved Continue to treat the underlying cause (7) Hyponatremia Current Visit: Yes Status: Acute Assessment and plan: Sodium on admission was noted to be 130 likely secondary to hypovolemia He received 3 L of normal saline and sodium has improved to 134 His baseline is 135 Encourage oral intake (8) Diabetes Current Visit: Yes Status: Chronic Assessment and plan: History of type 2 diabetes is dependent on insulin Continue basal insulin sliding scale Continue diabetic diet Qualifiers: Diabetes mellitus type: type 2 Diabetes mellitus correction insulin use: with intermediate project manager use Diabetes mellitus complication status: with neurologic complications Diabetes mellitus complication detail: with unspecified neuropathy Qualified Code(s): E11.40 - Type 2 diabetes mellitus with diabetic neuropathy, unspecified; Z79.4 - senior care (current) use of insulin (9) Hypertension Current Visit: Yes Status: Chronic Assessment and plan: We will continue Coreg. Hold furosemide due to hypovolemia Qualifiers: Hypertension type: essential hypertension Qualified Code(s): I10 - Essential (primary) hypertension (10) Peripheral neuropathy Current Visit: Yes Status: Chronic Assessment and plan: Continue gabapentin Qualifiers: Peripheral neuropathy type: polyneuropathy associated with underlying disease Qualified Code(s): G63 - Polyneuropathy in diseases classified elsewhere (11) Obstructive sleep apnea Current Visit: Yes Status: Chronic Assessment and plan: Continue CPAP (12) Hyperlipidemia Current Visit: Yes Status: Chronic Assessment and plan: History of hyperlipidemia and previous NE 5 years ago We will continue home pravastatin (13) Morbid obesity Current Visit: Yes Status: Chronic Assessment and plan: BMI 39.1. Family reports he eats a lot of fried food Provided counseling on diet given his risk factors Continue diabetic diet (14) DVT prophylaxis Current Visit: Yes Status: Acute Assessment and plan: Subcutaneous heparin every 8 hours - Time Spent With Patient Total time spent is greater than 50% in coordination of care (as documented) at patient's floor/unit and/or counseling patient:
[2018-08-11] MEDS ORDERED: Aspirin 325 MG TABLET PO ONE (03:47)
[2018-08-11] MEDS ORDERED: 0.9 % Sodium Chloride 1,000 ML ONE (04:41)
[2018-08-11] MEDS: *HR* Heparin 5,000 UNIT/ML VIAL SQ SCH ×2 (04:43→12:56)
[2018-08-11 04:53] LABS: Basophils % 0.2 %; Eosinophils % 0.1 %; Hematocrit 29.1 % (37.5-50.1); Hemoglobin 9.5 g/dL (12.9-16.9); Immature Granulocytes % 1.1 % (0-4); Lymphocytes # 1.1 K/mcL (0.6-4.6); Lymphocytes % 8.8 %; Mean Corpuscular HGB Conc 32.6 g/dL (31.6-35.5); Mean Corpuscular Volume 91.8 fL (83.0-100.0); Mean Platelet Volume 10.2 fL (9.4-12.4); Monocytes # 0.8 K/mcL (0.0-1.3); Monocytes % 6.3 %; Platelet Count 153 K/mcL (140-400); Red Blood Count 3.17 M/mcL (4.19-5.50); Red Cell Distribution Width 16.3 % (11.5-14.5); Segmented Neutrophils % 83.5 %
[2018-08-11 05:12] LABS: Albumin 3.4 g/dL (3.5-5.7); Albumin/Globulin Ratio 1.1 (1.1-2.2); Bilirubin,Total 0.6 mg/dL (0.3-1.0); Calcium 8.6 mg/dL (8.6-10.3); Globulin 3.2 g/dL (2.4-3.5); Potassium 4.3 mEq/L (3.5-5.1); Total Protein 6.6 g/dL (6.4-8.9)
[2018-08-11] MEDS: Acetaminophen 325 MG TABLET PO PRN (05:21)
[2018-08-11] MEDS: Insulin LISPRO 300 UNITS/3 ML VIAL SQ SCH ×6 (05:21→20:07)
[2018-08-11] MEDS ORDERED: 0.9 % Sodium Chloride 1,000 ML IVC ONE ×2 (06:19→06:45)
[2018-08-11] MEDS: Gabapentin 300 MG CAPSULE PO SCH ×2 (09:18→20:06)
--- NOTE | 2018-08-11 11:25 | Internal Med Progress Note ---
<Jose,Edson - Last Filed: 08/11/18 14:45> Hospitalist Progress Note - Encounter Date of Encounter: 08/11/18 Time of Encounter: 08:15 - Subjective Interval History: Patient states that he is feeling well today. Altered mental status appears to have improved; currently alert and oriented 3. Patient reported chest pain on arrival, but denies chest pain today. Echocardiogram demonstrates EF 50-55%, mild concentric LVH; troponin downtrending. He is currently being treated for UTI; denies having any suprapubic pain or dysuria. Denies fever, chills, nausea, vomiting, chest pain, diaphoresis, confusion, or visual disturbances. He has no complaints at this time. - Exam Vitals: Temp Pulse Resp BP Pulse Ox 99.2 F 78 16 113/66 100 08/11/18 10:41 08/11/18 10:41 08/11/18 10:41 08/11/18 10:41 08/11/18 10:41 Exam: General: A&O X3, conversant, no acute distress Head: atraumatic, normocephalic Eye: PERRL, EOMI, conjuntiva pink, sclera anicteric Neck: Supple, trachea midline; No lymphadenopathy Respiratory: CTAB. No accessory muscle use, wheezes, rales, or rhonchi Cardiovascular: RRR, +S1, +S2; no murmurs, rubs, gallops Abdomen: Soft, nontender, obese Extremities: warm, radial pulses palpable and symmetrical Psychiatric: Normal affect, normal mood Skin: Dry, intact - Assessment and Plan (1) Urinary tract infection Current Visit: Yes Status: Acute Assessment and Plan: - Causative organism unknown at this time - Initially met SIRS criteria on presentation with fever, leukocytosis; has since resolved - Urinalysis in ED demonstrated leukocyte esterase, white blood cells, bacteria, and large amount of blood - Patient reportedly had an episode of urinary incontinence - Currently denies having any suprapubic pain or dysuria - Initially presented with altered mental status; this has resolved; he is A&O3 Plan: - Continue ceftriaxone, day 1 - Urine culture is pending; tailor antimicrobial therapy appropriately (2) Acute kidney injury superimposed on chronic kidney disease Current Visit: Yes Status: Acute Assessment and Plan: - Patient has a known history of CKD stage IV; follows with Dr. Steve in the outpatient setting - Creatinine elevated on presentation at 3.35; Per chart review, baseline appears to be approximately 2 - Unknown etiology at this time; possibly prerenal secondary to poor PO intake - Repeat creatinine is improved; 3.17 Plan: - Continue gentle hydration with IV fluids; normal saline at 75 mL per hour - If renal function does not improve, will consult nephrology - Will order urine studies for LIOR workup: CK, Urine eosinophils, urine osmolality, urine Cr, urine Na - Renally dose medications and avoid nephrotoxins if possible (3) Anemia Current Visit: Yes Status: Acute Assessment and Plan: - Patient has a normochromic, normocytic anemia - Possibly due to chronic kidney disease - Repeat H&H tomorrow morning (4) Hyponatremia Current Visit: Yes Status: Acute Assessment and Plan: - Patient was found to have a low sodium level at 130 on admission - Possibly secondary to poor PO intake - Patient received 3 L of normal saline; is being treated with normal saline at 75 mL per hour Plan: - Continue IV fluid resuscitation - Repeat a.m. labs (5) Elevated troponin Current Visit: Yes Status: Acute Assessment and Plan: - Patient initially complained of chest pain on arrival - Laboratory analysis demonstrated elevated troponin; levels have been downtrendin.34, 0.06, 0.05 - Likely secondary to demand ischemia - Today, patient denies having chest pain - TTE demonstrates ejection fraction 50-55% with mild concentric left ventricular hypertrophy Plan: - Nitroglycerin PRN - Time Spent with Patient Total time spent is greater than 50% in coordination of care (as documented) at patient's floor/unit and/or counseling patient: 25 - 35 minutes Internal Medicine: Result - Labs CBC & Chem 7: 08/11/18 04:42 08/11/18 04:42 Labs: Short CBC 08/10/18 08/11/18 Range/Units 23:56 04:42 WBC 12.3 H 12.0 H (4.3-11.1) K/mcL Hgb 10.4 L 9.5 L (12.9-16.9) g/dL Hct 31.9 L 29.1 L (37.5-50.1) % Plt Count 163 153 (140-400) K/mcL Neutrophils # 10.6 H 10.0 H (1.6-8.9) K/mcL BMP 08/10/18 08/11/18 23:06 04:42 Sodium 130 L 134 L Potassium 4.2 4.3 Chloride 97 L 101 Carbon Dioxide 23 26 BUN 45 H 43 H Creatinine 3.35 H 3.17 H Glucose 297 H 283 H Calcium 9.4 8.6 Cardiac Enzymes 08/10/18 08/11/18 Range/Units 23:06 04:42 Troponin I 0.34 H* 0.06 H* (< 0.04) ng/mL Liver Function 08/10/18 08/11/18 Range/Units 23:06 04:42 Total Bilirubin 0.6 0.6 (0.3-1.0) mg/dL Direct Bilirubin 0.2 (0.0-0.2) mg/dL AST 40 H 30 (13-39) Units/L ALT 18 16 (7-52) Units/L Alkaline Phosphatase 47 42 (34-104) Units/L Albumin 3.8 3.4 L (3.5-5.7) g/dL Urine 08/11/18 Range/Units 00:26 Urine Color Yellow (Yellow) Urine Clarity Hazy (Clear) Urine pH 7.0 (5.0-8.0) pH Units Ur Specific [place] 1.008 L (1.010-1.025) Urine Protein 100 H (Neg-Trace) mg/dL Urine Glucose (UA) 250 H (Normal) mg/dL - ABG Interpretation ABG results: PT/INR, D-dimer PT 13.9 Seconds (9.4-12.1) H 08/10/18 23:06 - Impressions Impressions Chest X-Ray 08/10/18 22:51 IMPRESSION: No acute abnormality D/ / Buck Rdz / Buck Rdz Interpreting Provider: Buck Rdz Abdomen/Pelvis CT 08/11/18 00:01 IMPRESSION: Circumferential urinary bladder wall thickening with mild surrounding fat stranding, suspicious for cystitis. Mild left hydroureter with ureteritis but no appreciable obstructing stone. This could potentially indicate ascending urinary tract infection. Cholelithiasis without evidence of cholecystitis. Mild hepatomegaly with steatosis. D/ / Omega Robledo / Omega Robledo Interpreting Provider: Omega Robledo Head CT 08/11/18 00:01 IMPRESSION: 1. No intracranial hemorrhage or acute transcortical infarct. 2. Mild to moderate white matter hypoattenuation, likely the sequela of chronic small vessel ischemia. If there is persistent clinical concern for acute ischemia, MRI would be the more sensitive modality. 3. Generalized parenchymal volume loss. D/ / Mt Patel / Mt Patel Interpreting Provider: Mt Patel Consult Discharge Plan - Plan Referrals: Susie Blake CNP [Primary Care Provider] - <Maru Barnes - Last Filed: 08/11/18 15:44> Hospitalist Progress Note - Encounter Date of Encounter: 08/11/18 - Exam Vitals: Temp Pulse Resp BP Pulse Ox 99.2 F 78 16 113/66 100 08/11/18 10:41 08/11/18 10:41 08/11/18 10:41 08/11/18 10:41 08/11/18 10:41 - Assessment and Plan (1) Urinary tract infection Current Visit: Yes Status: Acute (2) Hyponatremia Current Visit: Yes Status: Acute (3) Acute kidney injury superimposed on chronic kidney disease Current Visit: Yes Status: Acute (4) Anemia Current Visit: Yes Status: Acute (5) Elevated troponin Current Visit: Yes Status: Acute - Time Spent with Patient Total time spent is greater than 50% in coordination of care (as documented) at patient's floor/unit and/or counseling patient: Internal Medicine: Result - Labs CBC & Chem 7: 08/11/18 04:42 08/11/18 04:42 Labs: Short CBC 08/10/18 08/11/18 Range/Units 23:56 04:42 WBC 12.3 H 12.0 H (4.3-11.1) K/mcL Hgb 10.4 L 9.5 L (12.9-16.9) g/dL Hct 31.9 L 29.1 L (37.5-50.1) % Plt Count 163 153 (140-400) K/mcL Neutrophils # 10.6 H 10.0 H (1.6-8.9) K/mcL BMP 08/10/18 08/11/18 23:06 04:42 Sodium 130 L 134 L Potassium 4.2 4.3 Chloride 97 L 101 Carbon Dioxide 23 26 BUN 45 H 43 H Creatinine 3.35 H 3.17 H Glucose 297 H 283 H Calcium 9.4 8.6 Cardiac Enzymes 08/10/18 08/11/18 08/11/18 Range/Units 23:06 04:42 10:53 Troponin I 0.34 H* 0.06 H* 0.05 H* (< 0.04) ng/mL Liver Function 08/10/18 08/11/18 Range/Units 23:06 04:42 Total Bilirubin 0.6 0.6 (0.3-1.0) mg/dL Direct Bilirubin 0.2 (0.0-0.2) mg/dL AST 40 H 30 (13-39) Units/L ALT 18 16 (7-52) Units/L Alkaline Phosphatase 47 42 (34-104) Units/L Albumin 3.8 3.4 L (3.5-5.7) g/dL Urine 08/11/18 Range/Units 00:26 Urine Color Yellow (Yellow) Urine Clarity Hazy (Clear) Urine pH 7.0 (5.0-8.0) pH Units Ur Specific [place] 1.008 L (1.010-1.025) Urine Protein 100 H (Neg-Trace) mg/dL Urine Glucose (UA) 250 H (Normal) mg/dL - ABG Interpretation ABG results: PT/INR, D-dimer PT 13.9 Seconds (9.4-12.1) H 08/10/18 23:06 - Impressions Impressions Chest X-Ray 08/10/18 22:51 IMPRESSION: No acute abnormality D/ / Buck Rdz / Buck Rdz Interpreting Provider: Buck Rdz Abdomen/Pelvis CT 08/11/18 00:01 IMPRESSION: Circumferential urinary bladder wall thickening with mild surrounding fat stranding, suspicious for cystitis. Mild left hydroureter with ureteritis but no appreciable obstructing stone. This could potentially indicate ascending urinary tract infection. Cholelithiasis without evidence of cholecystitis. Mild hepatomegaly with steatosis. D/ / Omega Robledo / Omega Robledo Interpreting Provider: Omega Robledo Head CT 08/11/18 00:01 IMPRESSION: 1. No intracranial hemorrhage or acute transcortical infarct. 2. Mild to moderate white matter hypoattenuation, likely the sequela of chronic small vessel ischemia. If there is persistent clinical concern for acute ischemia, MRI would be the more sensitive modality. 3. Generalized parenchymal volume loss. D/ / Mt Patel / Mt Patel Interpreting Provider: Mt Patel Echocardiogram 08/11/18 03:06 Impressions: Suboptimal study. Grossly LVEF 50-55%. Mild concentric left ventricular hypertrophy. Normal left ventricular diastolic function. Mildly dilated right ventricle with normal function. No significant valvular dysfunction. Unable to estimate RVSP due to lack of TR jet. Left Ventricular Wall Motion: Rest Echo Findings All wall segments showed normal motion. Findings: Study Quality * Technically sub-optimal due to poor echocardiographic windows, even with definity. ECG Findings * Sinus rhythm with BBB. Left Ventricle * LVEF 50-55%. * Normal LV chamber size and function. * Mild concentric left ventricular hypertrophy. * Normal left ventricular diastolic function. * Atypical septal motion consistent with bundle branch block. * Definity echo contrast was used. Right Ventricle * Mildly dilated right ventricle with normal function. Left Atrium * Normal left atrial size. Right Atrium * Normal right atrial size. Interatrial Septum * Interatrial septum not well evaluated. * No evidence of PFO by color Doppler. Aortic Valve * Aortic valve not well visualized. * No aortic stenosis. * No aortic regurgitation. Mitral Valve * Normal mitral valve structure. * No mitral stenosis. * No mitral regurgitation. Tricuspid Valve * Normal tricuspid valve structure. * No tricuspid stenosis. * Trace tricuspid regurgitation. * Unable to estimate RVSP due to lack of TR jet. * Estimated RA pressure is 8 mmHg. Pulmonic Valve * Pulmonic valve is not well visualized. * No pulmonic stenosis. * Trace pulmonic regurgitation. Aorta * Normally sized aortic root. Pericardium * The pericardium appears normal. IVC * The IVC is dilated. * > 50% respiratory change - Attending Attestation I examined this patient and my medical decision-making was reviewed with the Re sident Physician. I agree with the documented findings, disposition and treatment plan as described except to the extent set forth below. Additional Diagnosis: Sepsis secondary to UTI Bacteremia Follow-up blood cultures, continue current treatment. <Edson Garcia - Last Filed: 08/11/18 14:45> (1) Urinary tract infection Qualifiers: Urinary tract infection type: acute cystitis Hematuria presence: with hematuria Qualified Code(s): N30.01 - Acute cystitis with hematuria <Maru Barnes - Last Filed: 08/11/18 15:44> (1) Urinary tract infection Qualifiers: Urinary tract infection type: acute cystitis Hematuria presence: with hematuria Qualified Code(s): N30.01 - Acute cystitis with hematuria
[2018-08-11] MEDS ORDERED: Perflutren Lipid Microsphere 1.3 ML in 0.9 % Sodium Chloride 8.7 ML IVP ONE (11:27)
[2018-08-11 14:03] LABS: Acinetobacter baumannii by PCR Not Detected (Not Detect); Candida albicans by PCR Not Detected (Not Detect); Candida glabrata by PCR Not Detected (Not Detect); Candida krusei by PCR Not Detected (Not Detect); Candida parapsilosis by PCR Not Detected (Not Detect); Candida tropicalis by PCR Not Detected (Not Detect); Enterobacter cloacae Cmplx PCR Not Detected (Not Detect); Enterobacteriaceae by PCR DETECTED (Not Detect); Enterococcus by PCR Not Detected (Not Detect); Escherichia coli by PCR DETECTED (Not Detect); Klebsiella oxytoca by PCR Not Detected (Not Detect); Klebsiella pneumoniae by PCR Not Detected (Not Detect); Proteus by PCR Not Detected (Not Detect); Pseudomonas aeruginosa by PCR Not Detected (Not Detect); Serratia marcescens by PCR Not Detected (Not Detect); Staphylococcus aureus by PCR Not Detected (Not Detect); Staphylococcus by PCR Not Detected (Not Detect); Streptococcus agalactiae(B)PCR Not Detected (Not Detect); Streptococcus by PCR Not Detected (Not Detect); Streptococcus pneumoniae PCR Not Detected (Not Detect); Streptococcus pyogenes (A) PCR Not Detected (Not Detect); blaKPC Carbapenem-Resist Gene Not Detected (Not Detect)
[2018-08-11] MEDS: Insulin DETEMIR 100 UNIT/ML X5UNITS SQ SCH (20:08)
[2018-08-11] MEDS ORDERED: Insulin DETEMIR 100 UNIT/ML X5UNITS SQ SCH ×2 (21:00)
--- NOTE | 2018-08-11 23:00 | Event Note ---
Date of Encounter: 08/11/18 Time of Encounter: 22:30 Was reviewing the patient's chart and noted that his serology came back and shows Enterobacter and Escherichia coli. His blood cultures cultures show gram- negative rods. He continues to appear less energetic and has had 2 episodes of elevated temperature while being on ceftriaxone, we decided to stop ceftriaxone and switch him to cefepime. Additionally 2 blood cultures have been ordered. Nurse has been notified of the changes. Continue to follow blood cultures and sensitivities on blood cultures on admission.
[2018-08-11] MEDS ORDERED: Cefepime HCl 2,000 MG in Water for inj. (sterile) 20 ML 20 ML IVP SCH (23:45)
[2018-08-12] MEDS: *HR* Heparin 5,000 UNIT/ML VIAL SQ SCH ×4 (01:05→21:08)
[2018-08-12 01:13] LABS: Basophils % 0.1 %; Eosinophils % 0.2 %; Hematocrit 28.3 % (37.5-50.1); Hemoglobin 9.1 g/dL (12.9-16.9); Immature Granulocytes % 1.1 % (0-4); Lymphocytes # 1.2 K/mcL (0.6-4.6); Lymphocytes % 10.3 %; Mean Corpuscular HGB Conc 32.2 g/dL (31.6-35.5); Mean Corpuscular Hemoglobin 30.2 pg (28.0-33.3); Mean Platelet Volume 10.8 fL (9.4-12.4); Monocytes # 0.8 K/mcL (0.0-1.3); Monocytes % 7.5 %; Platelet Count 152 K/mcL (140-400); Red Blood Count 3.01 M/mcL (4.19-5.50); Red Cell Distribution Width 16.5 % (11.5-14.5); Segmented Neutrophils % 80.8 %
[2018-08-12 01:29] LABS: Calcium 8.6 mg/dL (8.6-10.3); Potassium 4.3 mEq/L (3.5-5.1)
[2018-08-12] MEDS: Acetaminophen 325 MG TABLET PO PRN ×2 (03:24→17:16)
[2018-08-12] MEDS ORDERED: Cefepime HCl 2,000 MG in Water for inj. (sterile) 20 ML 20 ML IVP SCH (06:00)
[2018-08-12] MEDS ORDERED: Cefepime HCl 1,000 MG in Water for inj. (sterile) 20 ML 10 ML IVP SCH (08:00)
--- NOTE | 2018-08-12 08:31 | Internal Med Progress Note ---
Addendum entered and electronically signed by Javi Zamora DO 08/12/18 16:02: Patient had elevated troponin 2nd to demand ischemia. He would benefit from a cardiac stress test outpatient. Original Note: <Javi Zamora - Last Filed: 08/12/18 10:46> Hospitalist Progress Note - Encounter Date of Encounter: 08/12/18 Time of Encounter: 10:04 - Subjective Interval History: No acute events overnight. Patient lying comfortably in bed. He is tolerating his breakfast. He denies dysuria. Reports his urine is clear yellow. He denies abdominal pain, chest pain, shortness of breath. Currently is on 2 L oxygen but he does not use oxygen at home. He reports he was able to ambulate without any help from his bed to the bathroom without difficulty. - Exam Vitals: Temp Pulse Resp BP Pulse Ox 98.2 F 66 16 118/71 97 08/12/18 06:44 08/12/18 06:44 08/12/18 06:44 08/12/18 06:44 08/12/18 06:44 Exam: General: pleasant, without distress Cardiovascualr: Regular rate and rhythm with no murmur, absent gallops or rubs, absent pedal edema, radial pulses 2 out of 4 Lungs: Clear to auscultation bilaterally, not in respiratory distress Abdomen: Soft nontender, nondistended positive bowel sounds, absent hepatomegaly Skin: warm and dry, absent rash, absent open wounds and nodules MSK: absent clubbing, cyanosis, joints without swelling Neuro: Cranial nerves II through XII intact, UE and LE sensation equal bilaterally, UE and LEstrength 5/5, alert oriented 3, Psych: good insight and judgment - Assessment and Plan (1) Sepsis Current Visit: Yes Status: Acute Assessment and Plan: Patient was febrile, tachycardic, leukocytosis Etiology: UTI, Escherichia coli bacteremia Leukocytosis, tachycardia, fever resolved (2) Bacteremia, escherichia coli Current Visit: Yes Status: Acute Assessment and Plan: Blood cultures grew Escherichia coli Etiology urinary tract infection Patient was switched from ceftriaxone to cefepime overnight (3) Acute kidney injury superimposed on chronic kidney disease Current Visit: Yes Status: Acute Assessment and Plan: Patient presented with acute on chronic renal failure Baseline serum creatinine is around 2. His serum creatinine has improved from 3.35-2.87 This is likely secondary to urinary tract infection as CT abdomen pelvis that show ureteritis and ascending infection. Urine studies pending. holding losartan and lasix. (4) Anemia Current Visit: Yes Status: Acute Assessment and Plan: Patient's hemoglobin at baseline is 11/12. Current hemoglobin is 9.1. He is hemodynamically stable. No previous EGD or loss and record We will obtain B12, folate, iron panel. cbc in AM (5) Diabetes Current Visit: Yes Status: Chronic Assessment and Plan: Patient has insulin-dependent diabetes mellitus We will continue patient on diabetic diet and sliding scale insulin as well as Levemir 65 units at night. (6) Obstructive sleep apnea Current Visit: Yes Status: Chronic Assessment and Plan: continue CPAP (7) Urinary tract infection Current Visit: Yes Status: Acute Assessment and Plan: plan as above. - Time Spent with Patient Total time spent is greater than 50% in coordination of care (as documented) at patient's floor/unit and/or counseling patient: Internal Medicine: Result - Labs CBC & Chem 7: 08/12/18 00:53 08/12/18 00:53 Labs: Short CBC 08/12/18 Range/Units 00:53 WBC 11.1 (4.3-11.1) K/mcL Hgb 9.1 L (12.9-16.9) g/dL Hct 28.3 L (37.5-50.1) % Plt Count 152 (140-400) K/mcL Neutrophils # 9.0 H (1.6-8.9) K/mcL BMP 08/12/18 00:53 Sodium 135 L Potassium 4.3 Chloride 104 Carbon Dioxide 23 BUN 44 H Creatinine 2.87 H Glucose 243 H Calcium 8.6 Cardiac Enzymes 08/11/18 Range/Units 10:53 Troponin I 0.05 H* (< 0.04) ng/mL - ABG Interpretation ABG results: PT/INR, D-dimer PT 13.9 Seconds (9.4-12.1) H 08/10/18 23:06 - Impressions Impressions Echocardiogram 08/11/18 03:06 Impressions: Suboptimal study. Grossly LVEF 50-55%. Mild concentric left ventricular hypertrophy. Normal left ventricular diastolic function. Mildly dilated right ventricle with normal function. No significant valvular dysfunction. Unable to estimate RVSP due to lack of TR jet. Left Ventricular Wall Motion: Rest Echo Findings All wall segments showed normal motion. Findings: Study Quality * Technically sub-optimal due to poor echocardiographic windows, even with definity. ECG Findings * Sinus rhythm with BBB. Left Ventricle * LVEF 50-55%. * Normal LV chamber size and function. * Mild concentric left ventricular hypertrophy. * Normal left ventricular diastolic function. * Atypical septal motion consistent with bundle branch block. * Definity echo contrast was used. Right Ventricle * Mildly dilated right ventricle with normal function. Left Atrium * Normal left atrial size. Right Atrium * Normal right atrial size. Interatrial Septum * Interatrial septum not well evaluated. * No evidence of PFO by color Doppler. Aortic Valve * Aortic valve not well visualized. * No aortic stenosis. * No aortic regurgitation. Mitral Valve * Normal mitral valve structure. * No mitral stenosis. * No mitral regurgitation. Tricuspid Valve * Normal tricuspid valve structure. * No tricuspid stenosis. * Trace tricuspid regurgitation. * Unable to estimate RVSP due to lack of TR jet. * Estimated RA pressure is 8 mmHg. Pulmonic Valve * Pulmonic valve is not well visualized. * No pulmonic stenosis. * Trace pulmonic regurgitation. Aorta * Normally sized aortic root. Pericardium * The pericardium appears normal. IVC * The IVC is dilated. * > 50% respiratory change Consult Discharge Plan - Plan Referrals: Susie Blake CNP [Primary Care Provider] - <Maru Barnes - Last Filed: 08/12/18 18:58> Hospitalist Progress Note - Encounter Date of Encounter: 08/12/18 - Exam Vitals: Temp Pulse Resp BP Pulse Ox 98.4 F 66 17 111/64 98 08/12/18 15:45 08/12/18 15:45 08/12/18 15:45 08/12/18 15:45 08/12/18 15:45 - Assessment and Plan (1) Urinary tract infection Current Visit: Yes Status: Acute (2) Hyponatremia Current Visit: Yes Status: Acute (3) Acute kidney injury superimposed on chronic kidney disease Current Visit: Yes Status: Acute (4) Anemia Current Visit: Yes Status: Acute (5) Elevated troponin Current Visit: Yes Status: Acute - Time Spent with Patient Total time spent is greater than 50% in coordination of care (as documented) at patient's floor/unit and/or counseling patient: Internal Medicine: Result - Labs CBC & Chem 7: 08/12/18 00:53 08/12/18 00:53 Labs: Short CBC 08/12/18 Range/Units 00:53 WBC 11.1 (4.3-11.1) K/mcL Hgb 9.1 L (12.9-16.9) g/dL Hct 28.3 L (37.5-50.1) % Plt Count 152 (140-400) K/mcL Neutrophils # 9.0 H (1.6-8.9) K/mcL BMP 08/12/18 00:53 Sodium 135 L Potassium 4.3 Chloride 104 Carbon Dioxide 23 BUN 44 H Creatinine 2.87 H Glucose 243 H Calcium 8.6 - ABG Interpretation ABG results: PT/INR, D-dimer PT 13.9 Seconds (9.4-12.1) H 08/10/18 23:06 - Impressions Impressions Retroperitoneum Ultrasound 08/12/18 16:00 IMPRESSION: 1. No sonographic evidence of hydronephrosis. 2. 1.5 cm echogenic lesion in the upper pole of the right kidney. Diagnostic considerations would include a hemorrhagic cyst versus calcium within a calyceal diverticulum. 3. Renal echogenicity bilaterally is otherwise within normal limits. D/ / 08/12/2018 17:19:14 Mt Patel / antonia Interpreting Provider: Mt Patel - Attending Attestation I examined this patient and my medical decision-making was reviewed with the Resident Physician. I agree with the documented findings, disposition and treatment plan as described except to the extent set forth below. <Javi Zamora - Last Filed: 08/12/18 10:46> (1) Sepsis Qualifiers: Sepsis type: Escherichia coli Qualified Code(s): A41.51 - Sepsis due to Escherichia coli [E. coli] (4) Anemia Qualifiers: Anemia type: unspecified type Qualified Code(s): D64.9 - Anemia, unspecified (5) Diabetes Qualifiers: Diabetes mellitus type: type 2 Diabetes mellitus care home insulin use: with emt intermediate use Diabetes mellitus complication status: with neurologic complications Diabetes mellitus complication detail: with unspecified neuropathy Qualified Code(s): E11.40 - Type 2 diabetes mellitus with diabetic neuropathy, unspecified; Z79.4 - termite control technician (current) use of insulin (7) Urinary tract infection Qualifiers: Urinary tract infection type: acute cystitis Hematuria presence: with hematuria Qualified Code(s): N30.01 - Acute cystitis with hematuria <Maru Barnes - Last Filed: 08/12/18 18:58> (1) Urinary tract infection Qualifiers: Urinary tract infection type: acute cystitis Hematuria presence: with hematuria Qualified Code(s): N30.01 - Acute cystitis with hematuria (4) Anemia Qualifiers: Anemia type: unspecified type Qualified Code(s): D64.9 - Anemia, unspecified
[2018-08-12] MEDS: Gabapentin 300 MG CAPSULE PO SCH ×2 (08:36→21:08)
[2018-08-12] MEDS: Insulin LISPRO 300 UNITS/3 ML VIAL SQ SCH ×4 (08:36→21:09)
[2018-08-12] MEDS ORDERED: cefTRIAXone 1,000 MG in Water for inj. (sterile) 20 ML 10 ML IVP SCH (09:00)
[2018-08-12] MEDS ORDERED: NON-FORMULARY MEDICATION 1 EACH EACH (Losartan Potassium [Cozaar] 100 MG) PO SCH (10:15)
[2018-08-12] MEDS ORDERED: cefTRIAXone 1,000 MG in 0.9 % Sodium Chloride Mini Bag 100 ML IVPB ONE (10:45)
[2018-08-12] MEDS: cefTRIAXone 2,000 MG in Water for inj. (sterile) 20 ML 20 ML IVP SCH (15:23)
--- NOTE | 2018-08-12 16:29 | Electrocardiograph Report ---
[place] [id number] Test Date: 2018-08-10 Pat Name: Best Gooden Department: [id number] Room: 2A Gender: M Telephone Collector: : 1950 Requested By: Cal Angulo Order Number: [id number] Reading MD: Lester Lam Measurements Intervals [place] Rate: 93 P: 49 OR: 149 QRS: -81 QRSD: 108 T: 56 QT: 356 QTc: 443 Interpretive Statements Sinus rhythm Left anterior fascicular block Low voltage, precordial leads Abnormal R-wave progression, late transition Electronically Signed On 08-12-2018 16:27:27 EDT by Lester Lam
[2018-08-12] MEDS: Insulin DETEMIR 100 UNIT/ML X5UNITS SQ SCH (21:08)
[2018-08-13 04:51] LABS: Basophils % 0.1 %; Eosinophils # 0.1 K/mcL (0.0-0.6); Eosinophils % 1.5 %; Hematocrit 27.3 % (37.5-50.1); Hemoglobin 8.7 g/dL (12.9-16.9); Immature Granulocytes % 0.8 % (0-4); Lymphocytes # 1.2 K/mcL (0.6-4.6); Lymphocytes % 12.9 %; Mean Corpuscular HGB Conc 31.9 g/dL (31.6-35.5); Mean Corpuscular Hemoglobin 29.9 pg (28.0-33.3); Mean Corpuscular Volume 93.8 fL (83.0-100.0); Mean Platelet Volume 11.3 fL (9.4-12.4); Monocytes # 0.7 K/mcL (0.0-1.3); Monocytes % 7.7 %; Neutrophils # 7.4 K/mcL (1.6-8.9); Platelet Count 170 K/mcL (140-400); Red Blood Count 2.91 M/mcL (4.19-5.50); Red Cell Distribution Width 16.3 % (11.5-14.5)
[2018-08-13 05:11] LABS: % Iron Saturation 4 % (20-55); Calcium 8.8 mg/dL (8.6-10.3); Iron 12 mcg/dL (65-175); Potassium 3.8 mEq/L (3.5-5.1); Transferrin 199 mg/dL (203-362)
[2018-08-13] MEDS: *HR* Heparin 5,000 UNIT/ML VIAL SQ SCH (05:11)
[2018-08-13 05:31] LABS: Ferritin 155 ng/mL (20-250)
[2018-08-13 05:36] LABS: Folate 11.2 ng/mL (3.0-16.0)
[2018-08-13 05:41] LABS: Vitamin B12 > 1500 pg/mL (250-1100)
[2018-08-13] MEDS: Insulin LISPRO 300 UNITS/3 ML VIAL SQ SCH ×4 (08:03→21:56)
[2018-08-13] MEDS: Gabapentin 300 MG CAPSULE PO SCH ×2 (08:06→22:04)
--- NOTE | 2018-08-13 09:01 | Internal Med Progress Note ---
Addendum entered and electronically signed by Javi Zamora DO 08/13/18 11:08: Patient will need repeat UA in the outpatient setting once UTI resolved to assess for microscopic hematuria. If he continues to have microscopic hematuria he will need a cystoscopy. Original Note: <Javi Zamora - Last Filed: 08/13/18 08:57> Hospitalist Progress Note - Encounter Date of Encounter: 08/13/18 Time of Encounter: 08:57 - Subjective Interval History: Patient denies any acute events overnight. He denies dysuria. Patient reports he has a history of hemorrhoids. He had a EGD and colonoscopy 2 years ago which she reports as normal. Discussed with patient about his hemoglobin trending down. His baseline is around 11-12 and currently his hemoglobin is 8.7. - Exam Vitals: Temp Pulse Resp BP Pulse Ox 99.4 F 71 16 123/61 92 08/13/18 07:05 08/13/18 07:05 08/13/18 07:05 08/13/18 07:05 08/13/18 07:05 Exam: General: pleasant, without distress Cardiovascualr: Regular rate and rhythm with no murmur, absent gallops or rubs, absent pedal edema, radial pulses 2 out of 4 Lungs: Clear to auscultation bilaterally, not in respiratory distress Abdomen: Soft nontender, nondistended positive bowel sounds, absent hepatomegaly Skin: warm and dry, absent rash, absent open wounds and nodules MSK: absent clubbing, cyanosis, joints without swelling Neuro: Cranial nerves II through XII intact, UE and LE sensation equal bilaterally, UE and LEstrength 5/5, alert oriented 3, Psych: good insight and judgment - Assessment and Plan (1) Sepsis Current Visit: Yes Status: Acute Assessment and Plan: Patient was febrile, tachycardic, leukocytosis Etiology: UTI, Escherichia coli bacteremia Leukocytosis, tachycardia, fever resolved (2) Bacteremia, escherichia coli Current Visit: Yes Status: Acute Assessment and Plan: Blood cultures grew Escherichia coli Etiology urinary tract infection continue ceftriaxone awaiting repeat cultures (3) Acute kidney injury superimposed on chronic kidney disease Current Visit: Yes Status: Acute Assessment and Plan: Improving Etiology prerenal as FeNA is 0.6 Likely secondary to sepsis and worsening anemia Repeat BMP in the morning. (4) Anemia Current Visit: Yes Status: Acute Assessment and Plan: Iron deficiency anemia Unclear etiology. Patient's hemoglobin has trended from 11.6 in June to 8.7 today. Talk to patient about GI consultation and he is okay with colonoscopy and EGD if GI recommends this. GI consulted. (5) Diabetes Current Visit: Yes Status: Chronic Assessment and Plan: Continue diabetic diet Continue insulin regimen. (6) Obstructive sleep apnea Current Visit: Yes Status: Chronic Assessment and Plan: CPAP at night. (7) Urinary tract infection Current Visit: Yes Status: Acute Assessment and Plan: Plan as above. DVT Prophylaxis: EPCD - Time Spent with Patient Total time spent is greater than 50% in coordination of care (as documented) at patient's floor/unit and/or counseling patient: Internal Medicine: Result - Labs CBC & Chem 7: 08/13/18 03:40 08/13/18 03:40 Labs: Short CBC 08/13/18 Range/Units 03:40 WBC 9.5 (4.3-11.1) K/mcL Hgb 8.7 L (12.9-16.9) g/dL Hct 27.3 L (37.5-50.1) % Plt Count 170 (140-400) K/mcL Neutrophils # 7.4 (1.6-8.9) K/mcL BMP 08/13/18 03:40 Sodium 136 Potassium 3.8 Chloride 104 Carbon Dioxide 24 BUN 51 H Creatinine 2.72 H Glucose 76 Calcium 8.8 - ABG Interpretation ABG results: PT/INR, D-dimer PT 13.9 Seconds (9.4-12.1) H 08/10/18 23:06 - Impressions Impressions Retroperitoneum Ultrasound 08/12/18 16:00 IMPRESSION: 1. No sonographic evidence of hydronephrosis. 2. 1.5 cm echogenic lesion in the upper pole of the right kidney. Diagnostic considerations would include a benign AML versus calcium within a calyceal diverticulum. 3. Renal echogenicity bilaterally is otherwise within normal limits. D/ / 08/12/2018 17:19:14 Mt Patel / antonia Interpreting Provider: Mt Patel Consult Discharge Plan - Plan Referrals: Susie Blake, MACHINE CEMENTER [Primary Care Provider] - <Maru Barnes - Last Filed: 08/13/18 21:16> Hospitalist Progress Note - Encounter Date of Encounter: 08/13/18 - Exam Vitals: Temp Pulse Resp BP Pulse Ox 98.4 F 60 18 138/70 97 08/13/18 19:20 08/13/18 19:20 08/13/18 19:20 08/13/18 19:20 08/13/18 19:20 - Assessment and Plan (1) Urinary tract infection Current Visit: Yes Status: Acute (2) Hyponatremia Current Visit: Yes Status: Acute (3) Acute kidney injury superimposed on chronic kidney disease Current Visit: Yes Status: Acute (4) Anemia Current Visit: Yes Status: Acute (5) Elevated troponin Current Visit: Yes Status: Acute - Time Spent with Patient Total time spent is greater than 50% in coordination of care (as documented) at patient's floor/unit and/or counseling patient: Internal Medicine: Result - Labs CBC & Chem 7: 08/13/18 03:40 08/13/18 03:40 Labs: Short CBC 08/13/18 Range/Units 03:40 WBC 9.5 (4.3-11.1) K/mcL Hgb 8.7 L (12.9-16.9) g/dL Hct 27.3 L (37.5-50.1) % Plt Count 170 (140-400) K/mcL Neutrophils # 7.4 (1.6-8.9) K/mcL BMP 08/13/18 03:40 Sodium 136 Potassium 3.8 Chloride 104 Carbon Dioxide 24 BUN 51 H Creatinine 2.72 H Glucose 76 Calcium 8.8 - ABG Interpretation ABG results: PT/INR, D-dimer PT 13.9 Seconds (9.4-12.1) H 08/10/18 23:06 - Impressions Impressions Retroperitoneum Ultrasound 08/12/18 16:00 IMPRESSION: 1. No sonographic evidence of hydronephrosis. 2. 1.5 cm echogenic lesion in the upper pole of the right kidney. Diagnostic considerations would include a benign AML versus calcium within a calyceal diverticulum. 3. Renal echogenicity bilaterally is otherwise within normal limits. D/ / 08/12/2018 17:19:14 Mt Patel / antonia Interpreting Provider: Mt Patel - Attending Attestation I examined this patient and my medical decision-making was reviewed with the Resident Physician. I agree with the documented findings, disposition and treatment plan as described except to the extent set forth below. <Javi Zamora - Last Filed: 08/13/18 08:57> (1) Sepsis Qualifiers: Sepsis type: Escherichia coli Qualified Code(s): A41.51 - Sepsis due to Escherichia coli [E. 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 operator intermodal yard use Diabetes mellitus complication status: with neurologic complications Diabetes mellitus complication detail: with unspecified neuropathy Qualified Code(s): E11.40 - Type 2 diabetes mellitus with diabetic neuropathy, unspecified; Z79.4 - vermin exterminator (current) use of insulin (7) Urinary tract infection Qualifiers: Urinary tract infection type: acute cystitis Hematuria presence: with h ematuria Qualified Code(s): N30.01 - Acute cystitis with hematuria <Maru Barnes - Last Filed: 08/13/18 21:16> (1) Urinary tract infection Qualifiers: Urinary tract infection type: acute cystitis Hematuria presence: with hematuria Qualified Code(s): N30.01 - Acute cystitis with hematuria (4) Anemia Qualifiers: Anemia type: unspecified type Qualified Code(s): D64.9 - Anemia, unspecified
--- NOTE | 2018-08-13 14:14 | Gastroenterology Consult Note ---
<Randy Solis - Last Filed: 08/13/18 14:12> Date of Encounter: 08/13/18 Time of Encounter: 09:50 - Assessment and plan (1) Anemia Current Visit: Yes Status: Acute Assessment and plan: Baseline Hgb 11-12, on admission Hgb 10.4 and today Hgb 8.7. Continue to monitor CBC and transfuse PRBC as needed. Plan for EGD and colonoscopy tomorrow. Clear liquid diet today, no red or purple. NPO at midnight. If unable tolerate NuLytely please use MiraLAX prep. If not clear by 6 AM, give 2 tap water enemas. Qualifiers: Anemia type: unspecified type Qualified Code(s): D64.9 - Anemia, unspecified (2) BRBPR (bright red blood per rectum) Current Visit: Yes Status: Acute Assessment and plan: Start daily fiber supplement. Plan for colonoscopy tomorrow. (3) Sepsis Current Visit: Yes Status: Acute Assessment and plan: Management per primary team. Qualifiers: Sepsis type: Escherichia coli Qualified Code(s): A41.51 - Sepsis due to Escherichia coli [E. coli] (4) Urinary tract infection Current Visit: Yes Status: Acute Assessment and plan: Management per primary team. Qualifiers: Urinary tract infection type: acute cystitis Hematuria presence: with he maturia Qualified Code(s): N30.01 - Acute cystitis with hematuria - Time Spent With Patient Total time spent is greater than 50% in coordination of care (as documented) at patient's floor/unit and/or counseling patient: GI History of Present Illness - Data of Consult Patient: new to practice Consult date: 08/13/18 Requesting Physician: Maru Barnes MD - Consult Narrative Reason for consult: Anemia History of present illness: Mr. Gooden is a 68 year old male with PMHx of CKD stage IV, DM, MA, HTN, HLD, MAYELIN who presented to the ED via EMS after a fall and altered mental status. CT of the head which did not show any acute abnormalities but noted mild to moderate white monitor hyperattenuation sequela of chronic small vessel disease. Patient was febrile, tachycardic, and WBC 12.3 on admission. He was noted to have Ecoli bacteremia and UTI. We were consulted to evaluate his anemia. Baseline Hgb 11-12, on admission Hgb 10.4 and today Hgb 8.7. Patient denies melena but does admit occasional BRBPR. Procedures: Colonoscopy 09/15/2009 Dr. Ferrera: Unable to obtain report. NSAIDs: None Anticoagulation: None Past Med Surg Social Fam HX - Past Medical History Medical history: non-contributory Additional medical history: neuropathy Psychiatric history: anxiety - Past Surgical History Surgical History: angioplasty/stent Additional surgical history: colonscopy; right knee; dental surgery; carpal tunnel surgery - Social History Smoking Status: Never smoker Smokeless Tobacco Status: No Alcohol use: occasionally Drug use: none - Family History Mother Hx Family Endocrine Disorder: Yes (DM II) - Gastrointestinal Gastrointestinal: Present: as per HPI - Constitutional Constitutional: as per HPI - EENT Eyes: as per HPI Ears: Present: as per HPI Nose, mouth and throat: Present: as per HPI - Cardiovascular Cardiovascular ROS: Present: as per HPI - Respiratory Respiratory IM: Present: as per HPI - Genitourinary Genitourinary: Absent: change in color, Urinary frequency - Neurological ROS Neurological GI: Present: as per HPI - Hematologic/Lymphatic Hematologic/Lymphatic pediatric: Present: as per HPI - Musculoskeletal Musculoskeletal ROS GI: Present: as per HPI - Integumentary Integumentary GI: Present: as per HPI - Psychiatric ROS Psychiatric GI: Present: as per HPI - Endocrine Endocrine IM: Present: as per HPI - Constitutional Vitals: Temp Pulse Resp BP Pulse Ox 99.7 F H 62 18 132/72 94 08/13/18 11:27 08/13/18 11:27 08/13/18 11:27 08/13/18 11:27 08/13/18 11:27 General appearance: Present: cooperative, A&O X 3, no acute distress, answers questions appropriately - Head Head exam: Present: atraumatic, normocephalic - Eye Eye exam: Present: normal appearance, sclera anicteric - ENT ENT exam: Present: mucous membranes moist - Neck Neck exam general surgery: Present: normal inspection, trachea midline - Respiratory Respiratory exam: Present: CTAB. Absent: rales, rhonchi - Cardiovascular Cardiovascular exam: Present: RRR, +S1, +S2 - GI/Abdominal GI/Abdominal exam: Present: soft, no peritoneal signs. Absent: distended, firm, guarding, tenderness - Rectal Rectal exam: Present: deferred - Extremities Exam Extremities exam: Present: warm - Neurological Exam Neurological exam: Present: no focal deficits - Psychiatric Psychiatric exam: Present: normal affect, normal mood - Skin Skin exam: Present: dry, intact, normal color, warm Results - Labs CBC & Chem 7: 08/13/18 03:40 08/13/18 03:40 Labs: Last Result Calcium 8.8 mg/dL (8.6-10.3) 08/13/18 03:40 Iron 12 mcg/dL (65-175) L 08/13/18 03:40 % Saturation 4 % (20-55) L 08/13/18 03:40 Transferrin 199 mg/dL (203-362) L 08/13/18 03:40 Ferritin 155 ng/mL (20-250) 08/13/18 03:40 Troponin I 0.05 ng/mL (< 0.04) H* 08/11/18 10:53 Vitamin B12 > 1500 pg/mL (250-1100) H 08/13/18 03:40 Folate 11.2 ng/mL (3.0-16.0) 08/13/18 03:40 Entire Visit Hgb 8.7 g/dL (12.9-16.9) L 08/13/18 03:40 Hct 27.3 % (37.5-50.1) L 08/13/18 03:40 PT 13.9 Seconds (9.4-12.1) H 08/10/18 23:06 Ferritin 155 ng/mL (20-250) 08/13/18 03:40 Total Bilirubin 0.6 mg/dL (0.3-1.0) 08/11/18 04:42 AST 30 Units/L (13-39) 08/11/18 04:42 ALT 16 Units/L (7-52) 08/11/18 04:42 Lipase 46 Units/L (11-82) 08/10/18 23:06 Folate 11.2 ng/mL (3.0-16.0) 08/13/18 03:40 E. coli (PCR) DETECTED (Not Detect) A 08/10/18 23:12 - ABG ABG results: PT/INR, D-dimer PT 13.9 Seconds (9.4-12.1) H 08/10/18 23:06 - Impressions Impressions Retroperitoneum Ultrasound 08/12/18 16:00 IMPRESSION: 1. No sonographic evidence of hydronephrosis. 2. 1.5 cm echogenic lesion in the upper pole of the right kidney. Diagnostic considerations would include a benign AML versus calcium within a calyceal diverticulum. 3. Renal echogenicity bilaterally is otherwise within normal limits. D/ / 08/12/2018 17:19:14 Mt Patel / antonia Interpreting Provider: Mt Patel Consult Discharge Plan - Plan Referrals: Susie Blake, PRINTING ESTIMATOR [Primary Care Provider] - <Manjit Garcia - Last Filed: 08/13/18 17:46> Date of Encounter: 08/13/18 Time of Encounter: 15:00 - Time Spent With Patient Total time spent is greater than 50% in coordination of care (as documented) at patient's floor/unit and/or counseling patient: GI History of Present Illness - Data of Consult Requesting Physician: Maru Barnes MD - Consult Narrative History of present illness: Mr. Gooden is a 68 year old male - Constitutional Vitals: Temp Pulse Resp BP Pulse Ox 98.5 F 63 18 135/69 96 08/13/18 16:38 08/13/18 16:38 08/13/18 16:38 08/13/18 16:38 08/13/18 16:38 Results - Labs CBC & Chem 7: 08/13/18 03:40 08/13/18 03:40 Labs: Last Result Calcium 8.8 mg/dL (8.6-10.3) 08/13/18 03:40 Iron 12 mcg/dL (65-175) L 08/13/18 03:40 % Saturation 4 % (20-55) L 08/13/18 03:40 Transferrin 199 mg/dL (203-362) L 08/13/18 03:40 Ferritin 155 ng/mL (20-250) 08/13/18 03:40 Troponin I 0.05 ng/mL (< 0.04) H* 08/11/18 10:53 Vitamin B12 > 1500 pg/mL (250-1100) H 08/13/18 03:40 Folate 11.2 ng/mL (3.0-16.0) 08/13/18 03:40 Entire Visit Hgb 8.7 g/dL (12.9-16.9) L 08/13/18 03:40 Hct 27.3 % (37.5-50.1) L 08/13/18 03:40 PT 13.9 Seconds (9.4-12.1) H 08/10/18 23:06 Ferritin 155 ng/mL (20-250) 08/13/18 03:40 Total Bilirubin 0.6 mg/dL (0.3-1.0) 08/11/18 04:42 AST 30 Units/L (13-39) 08/11/18 04:42 ALT 16 Units/L (7-52) 08/11/18 04:42 Lipase 46 Units/L (11-82) 08/10/18 23:06 Folate 11.2 ng/mL (3.0-16.0) 08/13/18 03:40 E. coli (PCR) DETECTED (Not Detect) A 08/10/18 23:12 - ABG ABG results: PT/INR, D-dimer PT 13.9 Seconds (9.4-12.1) H 08/10/18 23:06 - Impressions Impressions Retroperitoneum Ultrasound 08/12/18 16:00 IMPRESSION: 1. No sonographic evidence of hydronephrosis. 2. 1.5 cm echogenic lesion in the upper pole of the right kidney. Diagnostic considerations would include a benign AML versus calcium within a calyceal diverticulum. 3. Renal echogenicity bilaterally is otherwise within normal limits. D/ / 08/12/2018 17:19:14 Mt Patel / antonia Interpreting Provider: Mt Patel - Attending Attestation I have personally performed a face to face evaluation on this patient. I have reviewed and agree with the care plan. History and Exam by me shows: Patient seen. Denies any abdominal pain. Did had some rectal bleeding. On examination abdomen is benign. Assessment: Patient with UTI with Escherichia coli bacteremia now with anemia with some rectal bleeding. Recommendation: Follow H&H. EGD colonoscopy in the morning
[2018-08-13] MEDS: Acetaminophen 325 MG TABLET PO PRN (14:23)
[2018-08-13] MEDS: cefTRIAXone 2,000 MG in Water for inj. (sterile) 20 ML 20 ML IVP SCH (16:25)
[2018-08-13] MEDS ORDERED: SODIUM CHLORIDE/NAHCO3/KCL/PEG 4,000 ML SOLN.RECON PO ONE (17:00)
[2018-08-13] MEDS: Insulin DETEMIR 100 UNIT/ML X5UNITS SQ SCH (22:24)
[2018-08-14 05:09] LABS: Calcium 8.8 mg/dL (8.6-10.3); Potassium 3.9 mEq/L (3.5-5.1)
--- NOTE | 2018-08-14 08:05 | Internal Med Progress Note ---
<Javi Zamora - Last Filed: 08/14/18 15:03> Hospitalist Progress Note - Encounter Date of Encounter: 08/14/18 Time of Encounter: 14:41 - Subjective Interval History: Patient resting comfortably in bed. He has planned colonoscopy and EGD. He has no complaints. - Exam Vitals: Temp Pulse Resp BP Pulse Ox 98.7 F 62 18 135/79 96 08/14/18 06:57 08/14/18 06:57 08/14/18 06:57 08/14/18 06:57 08/14/18 06:57 Exam: General: pleasant, without distress Cardiovascualr: Regular rate and rhythm with no murmur, absent gallops or rubs, absent pedal edema, radial pulses 2 out of 4 Lungs: Clear to auscultation bilaterally, not in respiratory distress Abdomen: Soft nontender, nondistended positive bowel sounds, absent hepatomegaly Skin: warm and dry, absent rash, absent open wounds and nodules MSK: absent clubbing, cyanosis, joints without swelling Neuro: Cranial nerves II through XII intact, UE and LE sensation equal bilaterally, UE and LEstrength 5/5, alert oriented 3, Psych: good insight and judgment - Assessment and Plan (1) Sepsis Current Visit: Yes Status: Acute Assessment and Plan: Patient was febrile, tachycardic, leukocytosis Etiology: UTI, Escherichia coli bacteremia Leukocytosis, tachycardia, fever resolved (2) Bacteremia, escherichia coli Current Visit: Yes Status: Acute Assessment and Plan: Blood cultures grew Escherichia coli Etiology urinary tract infection repeat cultures negative on discharge will be on levaquin for total 14 day therapy from negative blood cultures. (3) Acute kidney injury superimposed on chronic kidney disease Current Visit: Yes Status: Acute Assessment and Plan: improving 2nd to sepsis Scr 2.27 today (4) Anemia Current Visit: Yes Status: Acute Assessment and Plan: Iron deficiency anemia Unclear etiology. Patient's hemoglobin has trended from 11.6 in June to 8.7 today. EGD and colonoscopy planned for today. (5) Diabetes Current Visit: Yes Status: Chronic Assessment and Plan: Continue diabetic diet Continue insulin regimen. (6) Obstructive sleep apnea Current Visit: Yes Status: Chronic Assessment and Plan: CPAP at night. (7) Urinary tract infection Current Visit: Yes Status: Acute Assessment and Plan: plan as above. DVT Prophylaxis: EPCD - Time Spent with Patient Total time spent is greater than 50% in coordination of care (as documented) at patient's floor/unit and/or counseling patient: Internal Medicine: Result - Labs CBC & Chem 7: 08/13/18 03:40 08/14/18 04:20 Labs: BMP 08/14/18 04:20 Sodium 134 L Potassium 3.9 Chloride 105 Carbon Dioxide 21 L BUN 44 H Creatinine 2.25 H Glucose 151 H Calcium 8.8 - ABG Interpretation ABG results: PT/INR, D-dimer PT 13.9 Seconds (9.4-12.1) H 08/10/18 23:06 - Impressions Impressions Retroperitoneum Ultrasound 08/12/18 16:00 IMPRESSION: 1. No sonographic evidence of hydronephrosis. 2. 1.5 cm echogenic lesion in the upper pole of the right kidney. Diagnostic considerations would include a benign AML versus calcium within a calyceal diverticulum. 3. Renal echogenicity bilaterally is otherwise within normal limits. D/ / 08/12/2018 17:19:14 Mt Patel / antonia Interpreting Provider: Mt Patel Consult Discharge Plan - Plan Referrals: Susie Blake, [place] [Primary Care Provider] - <Linh Fried - Last Filed: 08/14/18 16:51> Hospitalist Progress Note - Encounter Date of Encounter: 08/14/18 - Exam Vitals: Temp Pulse Resp BP Pulse Ox 99.1 F 55 17 124/62 98 08/14/18 15:51 08/14/18 15:51 08/14/18 15:51 08/14/18 15:51 08/14/18 15:51 - Assessment and Plan (1) Urinary tract infection Current Visit: Yes Status: Acute (2) Hyponatremia Current Visit: Yes Status: Acute (3) Acute kidney injury superimposed on chronic kidney disease Current Visit: Yes Status: Acute (4) Anemia Current Visit: Yes Status: Acute (5) Elevated troponin Current Visit: Yes Status: Acute - Time Spent with Patient Total time spent is greater than 50% in coordination of care (as documented) at patient's floor/unit and/or counseling patient: Internal Medicine: Result - Labs CBC & Chem 7: 08/14/18 15:12 08/14/18 04:20 Labs: Short CBC 08/14/18 Range/Units 15:12 Hgb 9.5 L (12.9-16.9) g/dL Hct 29.2 L (37.5-50.1) % BMP 08/14/18 04:20 Sodium 134 L Potassium 3.9 Chloride 105 Carbon Dioxide 21 L BUN 44 H Creatinine 2.25 H Glucose 151 H Calcium 8.8 - ABG Interpretation ABG results: PT/INR, D-dimer PT 13.9 Seconds (9.4-12.1) H 08/10/18 23:06 - Attending Attestation I examined this patient and my medical decision-making was reviewed with the Resident Physician Dr Zamora. I agree with the documented findings, disposition and treatment plan as described except to the extent set forth below. Mr Gooden is admitted with sepsis, UTI and bacteremia. He is being evaluated for gib. awake, awaiting scopes today. no fevers, chills, abd pain, n/v. continued brbpr. gen- alert, awake,appears stated age eyes- pupils equal round , no conjunctival pallor cv- reg rate and rhythm, normal s1,s2, no murmurs appreciated, no le edema lungs- ctabl, no wheezing, rhonchi or crackles abd- soft, non tender, non distended, + bs neuro- AAOx3 Sepsis, resolved 2/2 Ecoli UTI and Bacteremia -cont IV rocephin -cont to follow repeat cxs ngtd LIOR on CKD improving- avoid nephrotoxins, cont to monitor Suspected GIB acute on chronic anemia 2/2 gi blood loss Hemodynamically stable -appreciate gi input, cscope and egd today pending Elevated trop on admit believed to be demeand ischemia 2/2 sepsis by previous providers -asx trop down trended -would recommend outpt follow up for possible stress test after acute gib anemia resolved further diagnoses and plan as noted by resident <Javi Zamora - Last Filed: 08/14/18 15:03> (1) Sepsis Qualifiers: Sepsis type: Escherichia coli Qualified Code(s): A41.51 - Sepsis due to Escherichia coli [E. coli] (4) Anemia Qualifiers: Anemia type: unspecified type Qualified Code(s): D64.9 - Anemia, unspecified (5) Diabetes Qualifiers: Diabetes mellitus type: type 2 Diabetes mellitus intermediate insulin use: with intermediate use Diabetes mellitus complication status: with neurologic complications Diabetes mellitus complication detail: with unspecified neuropathy Qualified Code(s): E11.40 - Type 2 diabetes mellitus with diabetic neuropathy, unspecified; Z79.4 - middle or intermediate school principal (current) use of insulin (7) Urinary tract infection Qualifiers: Urinary tract infection type: acute cystitis Hematuria presence: with hematuria Qualified Code(s): N30.01 - Acute cystitis with hematuria <Linh Fried - Last Filed: 08/14/18 16:51> (1) Urinary tract infection Qualifiers: Urinary tract infection type: acute cystitis Hematuria presence: with hematuria Qualified Code(s): N30.01 - Acute cystitis with hematuria (4) Anemia Qualifiers: Anemia type: unspecified type Qualified Code(s): D64.9 - Anemia, unspecified
[2018-08-14] MEDS: Gabapentin 300 MG CAPSULE PO SCH ×2 (09:27→21:16)
[2018-08-14] MEDS: Insulin LISPRO 300 UNITS/3 ML VIAL SQ SCH ×4 (09:28→21:17)
[2018-08-14 15:27] LABS: Hematocrit 29.2 % (37.5-50.1); Hemoglobin 9.5 g/dL (12.9-16.9)
[2018-08-14] MEDS: cefTRIAXone 2,000 MG in Water for inj. (sterile) 20 ML 20 ML IVP SCH (17:01)
--- NOTE | 2018-08-14 19:13 | Anesthesia Evaluation PreOp ---
Date of Encounter: 08/14/18 Time of Encounter: 19:18 - Past History Planned Operation: EGD/Colonoscopy Cardiac History: Denies any Significant Hx Pulmonary History: MAYELIN Dx Other Medical History: Renal (acute renal injury), Diabetes Type II, Other (Hyponatremia) Alcohol Use: occasionally Drug use: none Medications and Allergies Albuterol Sulfate [Albuterol Inhaler] 2 puff IH Q4HR PRN 12/12/15 [History] Losartan Potassium [Cozaar] 100 mg PO DAILY 12/12/15 [History] Acetaminophen [Tylenol] 500 mg PO Q8H PRN 12/15/15 [History] Fenofibrate Nanocrystallized [Tricor] 145 mg PO QDPC 01/17/16 [History] Furosemide [Lasix] 40 mg PO BID 01/17/16 [History] Gabapentin [Neurontin] 300 mg PO BID 01/17/16 [History] Ascorbate Calcium [Vitamin C] 500 mg PO DAILY 08/11/18 [History] Calcium Carbonate/Vitamin D3 [Calcium 500 + Vit D Caplet] 1 each PO DAILY 08/11/18 [History] Cyanocobalamin (B-12) [Vitamin B12] 1,000 mcg PO DAILY 08/11/18 [History] Omega3/Dha/Epa/Fish Oil/Vit D3 [Fish Oil + Vitamin D-3 Softgel] 1 each PO DAILY 08/11/18 [History] Carvedilol 12.5 mg PO BID 08/12/18 [History] Linagliptin [Tradjenta] 5 mg PO DAILY 08/12/18 [History] Methyl Salicylate/Menth/Camph [Salonpas Deep Relieving Gel] 1 appl TP BID PRN 08/12/18 [History] Sub-Q Insulin Device, 20 Unit [VGo 20] 1 each SQ DAILY 08/12/18 [History] Allergy/AdvReac Type Severity Reaction Status Date / Time moxifloxacin [From Avelox] Allergy See Verified 08/12/18 17:10 Comments Neomycin Allergy See Verified 08/12/18 17:10 Comments Penicillins Allergy See Verified 08/12/18 17:10 Comments Sulfa (Sulfonamide Allergy See Verified 08/12/18 17:10 Antibiotics) Comments - Meds/Allergy Pre-op Review Medications Reviewed: Yes Allergies Reviewed: Yes Beta Blockers on Current Med List: Yes If Beta Blockers taken, Date/Time (Last Dose taken): 08/14/18 @ 09:27 Anesthesia Results - Labs 08/14/18 15:12 08/14/18 04:20 - Imaging EKG: report reviewed (Sinus rhythm Left anterior fascicular block Low voltage, precordial leads Abnormal R-wave progression, late transition) Anesthesia Exam Vital Signs/O2 Sat, Most Current Temp Pulse Resp BP Pulse Ox 99.1 F 60 18 149/63 97 08/14/18 18:38 08/14/18 19:14 08/14/18 19:14 08/14/18 19:14 08/14/18 19:14 NPO (# of Hours): > 8 hrs Pain Scale: 0 Pain Scale Used: Numeric (1 - 10) - HEENT Pupil (Motor): Pupils equal, EOMI Mallampati: III Teeth: Edentulous Oral Opening: Greater than 3 - AUTO REFINISHER LOC: Oriented AUTO REFINISHER Motor: Normal RUE, Normal LUE, Normal RLE, Normal LLE, Normal Face AUTO REFINISHER Sensory: Normal: RUE, LUE, RLE, LLE, Face - Cardiac Rhythm: Regular Murmur: None JVD: No Carotid Bruit: No - Pulmonary Breath Sounds: bilateral Clear Respiratory Effort: Symmetrical Anesthesia Assess/Plan ASA Score: 3 Level of consciousness: Cooperative Anesthetic Plan: MAC Autologous Blood: Yes Monitoring Plan: Standard Monitors Recovery Plan: PACU
[2018-08-14] MEDS ORDERED: Propofol 500 MG/50 ML INFUS..BTL ONE (19:15)
[2018-08-14] MEDS ORDERED: Lidocaine -MPF 2% 2 ML VIAL ONE (19:15)
--- NOTE | 2018-08-14 20:32 | Anesthesia Evaluation Post Op ---
Date of Encounter: 08/14/18 Time of Encounter: 20:31 - Vital Signs Vital Signs: Vital Signs/O2 Sat, Most Current Temp Pulse Resp BP Pulse Ox 99.1 F 60 18 149/63 97 08/14/18 18:38 08/14/18 19:14 08/14/18 19:14 08/14/18 19:14 08/14/18 19:14 - Lungs Lungs: Clear Ascult./Percussion - Airway Airway: Non-obstructed - Cardiovascular Regular Rate - Mental Status Mental Status: Alert & Oriented, Answers Appropriately - Pain Pain Scale: 0 Pain Scale used: Numeric (1 - 10) - Nausea Vomiting Nausea Vomiting: Not Present - Hydration Hydration: Tolerates oral liquids, Has not voided - Discharge PostOp Status: Transfer Patient to floor
[2018-08-14] MEDS: Insulin DETEMIR 100 UNIT/ML X5UNITS SQ SCH (21:16)
[2018-08-15 05:52] LABS: Hematocrit 28.7 % (37.5-50.1); Hemoglobin 9.2 g/dL (12.9-16.9)
[2018-08-15 06:07] LABS: Calcium 8.7 mg/dL (8.6-10.3); Potassium 3.8 mEq/L (3.5-5.1)
--- NOTE | 2018-08-15 07:10 | Internal Med Progress Note ---
Hospitalist Progress Note - Encounter Date of Encounter: 08/15/18 - Exam Vitals: Temp Pulse Resp BP Pulse Ox 98.9 F 57 18 143/75 97 08/15/18 06:43 08/15/18 06:43 08/15/18 06:43 08/15/18 06:43 08/15/18 06:43 - Assessment and Plan (1) Sepsis Current Visit: Yes Status: Acute (2) Bacteremia, escherichia coli Current Visit: Yes Status: Acute (3) Acute kidney injury superimposed on chronic kidney disease Current Visit: Yes Status: Acute (4) Anemia Current Visit: Yes Status: Acute (5) Diabetes Current Visit: Yes Status: Chronic (6) Obstructive sleep apnea Current Visit: Yes Status: Chronic (7) Urinary tract infection Current Visit: Yes Status: Acute - Time Spent with Patient Total time spent is greater than 50% in coordination of care (as documented) at patient's floor/unit and/or counseling patient: Internal Medicine: Result - Labs CBC & Chem 7: 08/15/18 05:35 08/15/18 05:35 Labs: Short CBC 08/14/18 08/15/18 Range/Units 15:12 05:35 Hgb 9.5 L 9.2 L (12.9-16.9) g/dL Hct 29.2 L 28.7 L (37.5-50.1) % BMP 08/15/18 05:35 Sodium 136 Potassium 3.8 Chloride 107 Carbon Dioxide 22 L BUN 38 H Creatinine 1.81 H Glucose 250 H Calcium 8.7 - ABG Interpretation ABG results: PT/INR, D-dimer PT 13.9 Seconds (9.4-12.1) H 08/10/18 23:06 Consult Discharge Plan - Plan Referrals: Susie Blake, [employer] [Primary Care Provider] - (1) Sepsis Qualifiers: Sepsis type: Escherichia coli Qualified Code(s): A41.51 - Sepsis due to Escherichia coli [E. coli] (4) Anemia Qualifiers: Anemia type: unspecified type Qualified Code(s): D64.9 - Anemia, unspecified (5) Diabetes Qualifiers: Diabetes mellitus type: type 2 Diabetes mellitus long term care pharmacist insulin use: with long term care pharmacist use Diabetes mellitus complication status: with neurologic complications Diabetes mellitus complication detail: with unspecified neuropathy Qualified Code(s): E11.40 - Type 2 diabetes mellitus with diabetic neuropathy, unspecified; Z79.4 - technician terminal and repeater (current) use of insulin (7) Urinary tract infection Qualifiers: Urinary tract infection type: acute cystitis Hematuria presence: with hematuria Qualified Code(s): N30.01 - Acute cystitis with hematuria
--- NOTE | 2018-08-15 07:11 | Discharge Summary ---
<Javi Zamora - Last Filed: 08/15/18 09:04> - NOTES TO OUTPATIENT PROVIDER Notes to Outpatient Provider: Patient needs urinalysis to assess for microscopic hematuria once his antibiotic regimen is completed. If urinalysis still has microscopic hematuria he needs urology consult. Orders not resulted at time of discharge: Pending orders 08/11/18 22:59 Culture,Blood [BC] Routine 08/14/18 19:55 Surgical Pathology [PTH] Routine Date of Encounter: 08/15/18 Time of Encounter: 08:21 - Discharge Diagnosis (1) Sepsis Priority: Primary Status: Resolved Qualifiers: Sepsis type: Escherichia coli Qualified Code(s): A41.51 - Sepsis due to Escherichia coli [E. coli] (2) Bacteremia, escherichia coli Priority: Secondary Status: Resolved (3) Acute kidney injury superimposed on chronic kidney disease Priority: Secondary Status: Resolved (4) Anemia Priority: Secondary Status: Chronic Qualifiers: Anemia type: unspecified type Qualified Code(s): D64.9 - Anemia, unspecified (5) Diabetes Priority: Secondary Status: Chronic Qualifiers: Diabetes mellitus type: type 2 Diabetes mellitus watermelon inspector insulin use: with care home use Diabetes mellitus complication status: with neurologic complications Diabetes mellitus complication detail: with unspecified neuropathy Qualified Code(s): E11.40 - Type 2 diabetes mellitus with diabetic neuropathy, unspecified; Z79.4 - technician terminal and repeater (current) use of insulin (6) Obstructive sleep apnea Priority: Secondary Status: Chronic (7) Urinary tract infection Priority: Secondary Status: Acute Qualifiers: Urinary tract infection type: acute cystitis Hematuria presence: with hemat uria Qualified Code(s): N30.01 - Acute cystitis with hematuria Hospital course: Mr. Gooden is a 68 year old male presented with chief complaint of fall, altered mental status. Patient was found to have sepsis secondary to UTI and Escherichia coli bacteremia. Patient had CT abdomen pelvis which showed circumferential urinary bladder wall thickening. Head CT was negative. Along with this patient had acute kidney injury secondary to sepsis and rectal pertinent ultrasound was negative. Patient was treated with IV ceftriaxone, IV fluids. His AK I resolved. He was also seen to have a downtrending hemoglobin. Baseline hemoglobin is 11-12 at the hospital it decreased to 8.7. He underwent EGD colonoscopy which was negative for acute bleeding. Repeat blood cultures were negative. Patient was started on iron supplements. He will be discharged with Omnicef for another 11 days. Furthermore patient will need a outpatient urinalysis after he has completed his antibiotic regimen. Discharge discussed with: patient - Time Spent with Patient Total time spent providing and/or coordinating discharge services: - Discharge Medications Prescriptions: New Cefdinir [Omnicef] 300 mg PO BID 11 Days #23 capsule Ferrous Sulfate 324 mg PO Q48H #30 tablet. Continue Omega3/Dha/Epa/Fish Oil/Vit D3 [Fish Oil + Vitamin D-3 Softgel] 1 each PO DAILY Ascorbate Calcium [Vitamin C] 500 mg PO DAILY Calcium Carbonate/Vitamin D3 [Calcium 500 + Vit D Caplet] 1 each PO DAILY Cyanocobalamin (B-12) [Vitamin B12] 1,000 mcg PO DAILY Carvedilol 12.5 mg PO BID Linagliptin [Tradjenta] 5 mg PO DAILY Sub-Q Insulin Device, 20 Unit [VGo 20] 1 each SQ DAILY Methyl Salicylate/Menth/Camph [Salonpas Deep Relieving Gel] 1 appl TP BID PRN PRN Reason: Pain Albuterol Sulfate [Albuterol Inhaler] 2 puff IH Q4HR PRN PRN Reason: Shortness Of Breath Losartan Potassium [Cozaar] 100 mg PO DAILY Acetaminophen [Tylenol] 500 mg PO Q8H PRN PRN Reason: Pain Furosemide [Lasix] 40 mg PO BID Fenofibrate Nanocrystallized [Tricor] 145 mg PO QDPC Gabapentin [Neurontin] 300 mg PO BID Home Medications: Albuterol Sulfate [Albuterol Inhaler] 2 puff IH Q4HR PRN 12/12/15 [History] Losartan Potassium [Cozaar] 100 mg PO DAILY 12/12/15 [History] Acetaminophen [Tylenol] 500 mg PO Q8H PRN 12/15/15 [History] Fenofibrate Nanocrystallized [Tricor] 145 mg PO QDPC 01/17/16 [History] Furosemide [Lasix] 40 mg PO BID 01/17/16 [History] Gabapentin [Neurontin] 300 mg PO BID 01/17/16 [History] Ascorbate Calcium [Vitamin C] 500 mg PO DAILY 08/11/18 [History] Calcium Carbonate/Vitamin D3 [Calcium 500 + Vit D Caplet] 1 each PO DAILY 08/11/18 [History] Cyanocobalamin (B-12) [Vitamin B12] 1,000 mcg PO DAILY 08/11/18 [History] Omega3/Dha/Epa/Fish Oil/Vit D3 [Fish Oil + Vitamin D-3 Softgel] 1 each PO DAILY 08/11/18 [History] Carvedilol 12.5 mg PO BID 08/12/18 [History] Linagliptin [Tradjenta] 5 mg PO DAILY 08/12/18 [History] Methyl Salicylate/Menth/Camph [Salonpas Deep Relieving Gel] 1 appl TP BID PRN 08/12/18 [History] Sub-Q Insulin Device, 20 Unit [VGo 20] 1 each SQ DAILY 08/12/18 [History] Cefdinir [Omnicef] 300 mg PO BID 11 Days #23 capsule 08/15/18 [Rx] Ferrous Sulfate 324 mg PO Q48H #30 tablet. 08/15/18 [Rx] Allergies/Adverse Reactions: Allergy/AdvReac Type Severity Reaction Status Date / Time moxifloxacin [From Avelox] Allergy See Verified 08/12/18 17:10 Comments Neomycin Allergy See Verified 08/12/18 17:10 Comments Penicillins Allergy See Verified 08/12/18 17:10 Comments Sulfa (Sulfonamide Allergy See Verified 08/12/18 17:10 Antibiotics) Comments Date of admission: 08/11/18 03:24 Primary care physician: Susie Blake CNP Consults: 08/11/18 04:11 Consult to Nutrition [CONS] Routine Comment: States 5# wt loss in past week Consulting Provider: NUTRITION Reason for Dietary Consult: MST Score 08/12/18 11:00 Consult to Dialysis [CONS] ONCE 08/12/18 16:31 Consult to Occupational Therapy [CONS] Routine Comment: Evaluate, develop and implement POC Reason for Consult: fall Does patient have active BEDREST order?: No Is patient medically & hemodynamically stable?: Yes Consult to Physical Therapy [CONS] Routine Comment: Evaluate, develop and implement POC Reason for Consult: fall Does patient have active BEDREST order?: No Is patient medically & hemodynamically stable?: Yes 08/13/18 09:00 Consult to Gastroenterology [CONS] Routine Consulting Provider: Gastroenterology Lisandra Reason for Consult: anemia Call Completed: Yes 08/13/18 12:42 Consult to Electrical Parts Reconditioner [CONS] Routine Reason for SW Consult: POA Papers Discharging clinician: Javi Zamora Anticipated date of discharge: 08/15/18 - Constitutional Vitals: Temp Pulse Resp BP Pulse Ox 98.9 F 57 18 143/75 97 08/15/18 06:43 08/15/18 06:43 08/15/18 06:43 08/15/18 06:43 08/15/18 06:43 Exam: General: pleasant, without distress Cardiovascualr: Regular rate and rhythm with no murmur, absent gallops or rubs, absent pedal edema, radial pulses 2 out of 4 Lungs: Clear to auscultation bilaterally, not in respiratory distress Abdomen: Soft nontender, nondistended positive bowel sounds, absent hepatomegaly Skin: warm and dry, absent rash, absent open wounds and nodules MSK: absent clubbing, cyanosis, joints without swelling Neuro: Cranial nerves II through XII intact, UE and LE sensation equal bilaterally, UE and LEstrength 5/5, alert oriented 3, Psych: good insight and judgment - Patient Status Disposition: Home Health Service Condition: Fair - Discharge Instructions Follow Up With: Susie Blake CNP [Primary Care Provider] - 08/20/18 1:00 pm Forms: ED Satisfaction Letter Additional Instructions: Follow-up appointments: If there is not an appointment listed below, please call your physician and schedule a follow-up appointment. If you have congestive heart failure and your symptoms return, make an appointment with your physician. Medication List: Carry an up to date list of medications you are taking at all time. We have given you an updated medication list including any new medications that you have been prescribed. Please provide that list to your primary provider Symptoms: If your condition changes or you experience any of the following symptoms, notify your physician immediately: Unusual or worsening pain, fever, persistent nausea and vomiting, bleeding, increase in swelling (especially in your legs), sudden weight gain, extreme dizziness, chest pain, increased drainage or redness from a wound or incision. Go to the emergency department if you experience a problem with breathing. Weights: If you have a history of swelling or shortness of breath, weigh yourself daily and notify your physician if you have a weight gain of two or more pounds in one day or 5 or more pounds in a week. If you experience any of the warning signs for stroke: Sudden numbness or weakness of the face, arm or leg; especially on one side of the body, sudden confusion, trouble speaking or understanding, sudden trouble seeing in one or both eyes, sudden trouble walking, dizziness, loss of balance or coordination, sudden sever headache with no cause; Call 911 or go to the emergency room. Stroke is a medical emergency. Some risk factors for stroke: Age, cigarette smoking, diabetes, excessive alcohol consumption, family history, high blood pressure, overweight, physical inactivity, prior stroke, heart attack, diagnosis of carotid artery stenosis or other artery disease. If you smoke, STOP: Smoking or tobacco use significantly increases your risk of heart and lung disease. Your chance of disease greatly increases if you continue to smoke. For more information, call the [employer] quit line for smoking cessation 4-283-JPEQ-NOW ( ) - Diet and Activity Activity: as per physical therapy, increase activity as tolerated Diet: diabetic diet, low fat, low cholesterol, low salt diet <Linh Fried - Last Filed: 08/15/18 15:52> - NOTES TO OUTPATIENT PROVIDER Notes to Outpatient Provider: recommend pcp repeat cbc to assess continued up trending of hgb. Also, he had trop elevation suspected to be demand ischemia in setting of sepsis. He was asymptomatic. Defer to PCP to follow up and outpt stress test as needed. Orders not resulted at time of discharge: Pending orders 08/11/18 22:59 Culture,Blood [BC] Routine 08/14/18 19:55 Surgical Pathology [PTH] Routine Date of Encounter: 08/15/18 - Discharge Diagnosis (1) Urinary tract infection Status: Acute Qualifiers: Urinary tract infection type: acute cystitis Hematuria presence: with hematuria Qualified Code(s): N30.01 - Acute cystitis with hematuria (2) Hyponatremia Status: Acute (3) Acute kidney injury superimposed on chronic kidney disease Status: Resolved (4) Anemia Status: Chronic Qualifiers: Anemia type: unspecified type Qualified Code(s): D64.9 - Anemia, unspecified (5) Elevated troponin Status: Acute Hospital course: Mr. Gooden is a 68 year old male - Time Spent with Patient Total time spent providing and/or coordinating discharge services: Time spent: Greater than 30 minutes (40 min) Date of admission: 08/11/18 03:24 Primary care physician: Susie Blake CNP Consults: 08/11/18 04:11 Consult to Nutrition [CONS] Routine Comment: States 5# wt loss in past week Consulting Provider: NUTRITION Reason for Dietary Consult: MST Score 08/12/18 11:00 Consult to Dialysis [CONS] ONCE 08/12/18 16:31 Consult to Occupational Therapy [CONS] Routine Comment: Evaluate, develop and implement POC Reason for Consult: fall Does patient have active BEDREST order?: No Is patient medically & hemodynamically stable?: Yes Consult to Physical Therapy [CONS] Routine Comment: Evaluate, develop and implement POC Reason for Consult: fall Does patient have active BEDREST order?: No Is patient medically & hemodynamically stable?: Yes 08/13/18 09:00 Consult to Gastroenterology [CONS] Routine Consulting Provider: Gastroenterology Lisandra Reason for Consult: anemia Call Completed: Yes 08/13/18 12:42 Consult to Electrical Parts Reconditioner [CONS] Routine Reason for SW Consult: POA Papers - Constitutional Vitals: Temp Pulse Resp BP Pulse Ox 98.3 F 65 22 135/76 94 08/15/18 10:53 08/15/18 10:53 08/15/18 10:53 08/15/18 10:53 08/15/18 10:53 - Attending Attestation I examined this patient and my medical decision-making was reviewed with the Resident Physician Dr Zamora. I agree with the documented findings, disposition and treatment plan as described except to the extent set forth below. Mr Gooden is admitted with sepsis, UTI and bacteremia. He was evaluated for gib. He remains in stable condition and is ready for dc to home with [facility] and will complete abx course outpatient with pcp follow up. awake, feeling well, very much wanting to dc to home. has had no fevers, chills, n/v/abd pain. denies further bleeding. Feeling back to baseline. Discussed dc plan in detail and answered all questions. Our team discussed with Dr Garcia this morning as late night scope reports from 08/14 were pending. He noted no bleeding, no polyps and no further work up required. gen- alert, awake,appears stated age eyes- pupils equal round , no conjunctival pallor cv- reg rate and rhythm, normal s1,s2, no murmurs appreciated, no le edema lungs- ctabl, normal resp effort on room air abd- soft, non tender, non distended, + bs neuro- AAOx3 Sepsis, resolved 2/2 Ecoli UTI and Bacteremia -changed to omnicef to complete abx course -repeat cxs ngtd -fu with pcp LIOR on CKD improving- avoid nephrotoxins, ua outpt with pcp Suspected GIB acute on chronic anemia 2/2 gi blood loss, stable and uptrending Hemodynamically stable -appreciate gi input, cscope and egd verbal report from Dr Garcia 08/15 is normal and no need to follow up (report ahs not been documented at time of dc so verbal report was obtained by our team) Elevated trop on admit believed to be demand ischemia 2/2 sepsis by previous providers -asx trop down trended -would recommend outpt follow up for possible stress test after acute gib anemia resolved further diagnoses and plan as noted by resident time spent on dc 40 min Addendum entered and electronically signed by Javi Zamora DO 08/15/18 10:43: PCP should also have a follow up H/H.
[2018-08-15] MEDS: Insulin LISPRO 300 UNITS/3 ML VIAL SQ SCH (08:07)
[2018-08-15] MEDS: Gabapentin 300 MG CAPSULE PO SCH (08:07)
[2018-08-15] MEDS ORDERED: Cefdinir 300 MG CAPSULE PO SCH (09:00)
--- NOTE | 2018-08-15 09:10 | Physician Discharge Referral ---
<Javi Zamora - Last Filed: 08/15/18 09:08> Home Health/Hosp Referral Info Transfer to: Home Health Attending Provider: Dr. Fried Provider in Charge Post Discharge: PCP - Diagnosis (1) Sepsis Priority: Primary Status: Resolved (2) Bacteremia, escherichia coli Priority: Secondary Status: Resolved (3) Acute kidney injury superimposed on chronic kidney disease Priority: Secondary Status: Resolved (4) Anemia Priority: Secondary Status: Chronic (5) Diabetes Priority: Secondary Status: Chronic (6) Obstructive sleep apnea Priority: Secondary Status: Chronic (7) Urinary tract infection Priority: Secondary Status: Acute - Respiratory Orders None Smoking Cessation: Smoking cessation has been advised. For more information, call the [place] Tobacco Quit Line at 2-079-QVIQ-NOW. - Diet/Nutrition Diet/Nutrition Orders: Cardiac, No Concentrated Sweets - Activity Activity Orders: Ambulate - Services Needed Following services are medically necessary services: Physical Therapy, Occup ational Therapy - Transfer Medications Prescriptions: Cefdinir [Omnicef] 300 mg PO BID 11 Days #23 capsule Ferrous Sulfate 324 mg PO Q48H #30 tablet. Vanzant Medications: Albuterol Sulfate [Albuterol Inhaler] 2 puff IH Q4HR PRN 12/12/15 [History] Losartan Potassium [Cozaar] 100 mg PO DAILY 12/12/15 [History] Acetaminophen [Tylenol] 500 mg PO Q8H PRN 12/15/15 [History] Fenofibrate Nanocrystallized [Tricor] 145 mg PO QDPC 01/17/16 [History] Furosemide [Lasix] 40 mg PO BID 01/17/16 [History] Gabapentin [Neurontin] 300 mg PO BID 01/17/16 [History] Ascorbate Calcium [Vitamin C] 500 mg PO DAILY 08/11/18 [History] Calcium Carbonate/Vitamin D3 [Calcium 500 + Vit D Caplet] 1 each PO DAILY 08/11/18 [History] Cyanocobalamin (B-12) [Vitamin B12] 1,000 mcg PO DAILY 08/11/18 [History] Omega3/Dha/Epa/Fish Oil/Vit D3 [Fish Oil + Vitamin D-3 Softgel] 1 each PO DAILY 08/11/18 [History] Carvedilol 12.5 mg PO BID 08/12/18 [History] Linagliptin [Tradjenta] 5 mg PO DAILY 08/12/18 [History] Methyl Salicylate/Menth/Camph [Salonpas Deep Relieving Gel] 1 appl TP BID PRN 08/12/18 [History] Sub-Q Insulin Device, 20 Unit [VGo 20] 1 each SQ DAILY 08/12/18 [History] Cefdinir [Omnicef] 300 mg PO BID 11 Days #23 capsule 08/15/18 [Rx] Ferrous Sulfate 324 mg PO Q48H #30 tablet. 08/15/18 [Rx] Allergies/Adverse Reactions: Allergy/AdvReac Type Severity Reaction Status Date / Time moxifloxacin [From Avelox] Allergy See Verified 08/12/18 17:10 Comments Neomycin Allergy See Verified 08/12/18 17:10 Comments Penicillins Allergy See Verified 08/12/18 17:10 Comments Sulfa (Sulfonamide Allergy See Verified 08/12/18 17:10 Antibiotics) Comments Certification: Further, I certify that my clinical findings support that this patient is homebound (i.e. absences from home require considerable and taxing effort and are for medical reasons or buddhist services or infrequently or short duration when for other reasons) because: Homebound Reason: Patient requires assistance of a person or device to safely leave home Attestation: My signature below is to certify that this patient is under my care and that I, or nurse practitioner, or a physician's assistant general manager working with me, has a [id number] encounter with this patient. <Linh Fried - Last Filed: 08/15/18 15:53> - Diagnosis (1) Urinary tract infection Status: Acute (2) Hyponatremia Status: Acute (3) Acute kidney injury superimposed on chronic kidney disease Status: Resolved (4) Anemia Status: Chronic (5) Elevated troponin Status: Acute - Respiratory Orders Smoking Cessation: Smoking cessation has been advised. For more information, call the [place] Tobacco Quit Line at 4-011-QYLI-NOW. - Services Needed Following services are medically necessary services: Nursing Other Treatments: recommend cbc check in 3 days for hgb follow up Certification: Further, I certify that my clinical findings support that this patient is homebound (i.e. absences from home require considerable and taxing effort and are for medical reasons or buddhist services or infrequently or short duration when for other reasons) because: Homebound Reason: Patient requires assistance of a person or device to safely leave home Attestation: My signature below is to certify that this patient is under my care and that I, or nurse practitioner, or a physician's assistant general manager working with me, has a [id number] encounter with this patient.
[2018-08-15 10:58] VITALS: BP 135/76
== END 2018-08-15 13:14 | disposition home health service (06) | DRG 871 ==
LOC: EMEROOARM 22:43 → 2ANU 22:43 → SUATTDRO 08-11 03:24 → 2ANU 08-11 03:35
PROVIDERS: ADMIT Internal Medicine; ATTEND Internal Medicine
PROC: ENDOEBX (2018-08-14 13:00)

== ENCOUNTER 2020-04-05 07:42 | Observation (INO) ==
[2020-04-05] MEDS ORDERED: *HR* OxyCODONE/APAP 10/325 TABLET PO STA (07:56)
[2020-04-05 11:44] LABS: Basophils % 0.3 %; Calcium 9.8 mg/dL (8.6-10.3); Eosinophils # 0.1 K/mcL (0.0-0.6); Eosinophils % 0.7 %; Hematocrit 42.6 % (37.5-50.1); Hemoglobin 13.9 g/dL (12.9-16.9); Immature Granulocytes % 0.4 % (0-4); Lymphocytes # 2.2 K/mcL (0.6-4.6); Lymphocytes % 20.4 %; Mean Corpuscular HGB Conc 32.6 g/dL (31.6-35.5); Mean Corpuscular Hemoglobin 30.2 pg (28.0-33.3); Mean Corpuscular Volume 92.6 fL (83.0-100.0); Mean Platelet Volume 9.9 fL (9.4-12.4); Monocytes # 0.6 K/mcL (0.0-1.3); Monocytes % 5.9 %; Neutrophils # 7.8 K/mcL (1.6-8.9); Platelet Count 214 K/mcL (140-400); Potassium 3.7 mEq/L (3.5-5.1); Red Cell Distribution Width 13.2 % (11.5-14.5); Segmented Neutrophils % 72.3 %; White Blood Count 10.8 K/mcL (4.3-11.1)
[2020-04-05] MEDS ORDERED: Acetaminophen 325 MG TABLET PO PRN (13:41)
[2020-04-05] MEDS ORDERED: *HR* Dextrose 50 % in Water (Vial) 50 ML VIAL IVP PRN ×2 (13:41→20:58)
[2020-04-05] MEDS ORDERED: *HR* OxyCODONE Immed Rel 5 MG TABLET PO PRN (13:41)
[2020-04-05] MEDS ORDERED: Naloxone 0.4 MG/ML INJ IVP PRN (13:41)
[2020-04-05] MEDS ORDERED: Dextrose Gel 15 GM/37.5 ML TUBE PO PRN ×4 (13:41→20:58)
[2020-04-05] MEDS ORDERED: Ondansetron 4 MG/2 ML VIAL IVP PRN (13:41)
[2020-04-05] MEDS ORDERED: D5% in Water 1,000 ML IVC PRN ×2 (13:41→20:58)
[2020-04-05] MEDS ORDERED: dexAMETHasone 4 MG TABLET PO SCH (14:45)
[2020-04-05] MEDS ORDERED: Insulin LISPRO 300 UNITS/3 ML VIAL SQ SCH ×2 (16:30→21:00)
[2020-04-05] MEDS: *HR* Heparin 5,000 UNIT/ML VIAL SQ SCH (17:13)
[2020-04-05] MEDS: predniSONE 20 MG TABLET PO SCH (17:13)
[2020-04-05] MEDS: *HR* HYDROcodone/Acet 5/325 mg TABLET PO PRN (17:13)
[2020-04-06] MEDS: *HR* HYDROcodone/Acet 5/325 mg TABLET PO PRN (00:57)
[2020-04-06 01:21] LABS: Basophils % 0.1 %; Eosinophils % 0.1 %; Hematocrit 43.2 % (37.5-50.1); Hemoglobin 14.5 g/dL (12.9-16.9); Immature Granulocytes % 0.4 % (0-4); Lymphocytes # 1.3 K/mcL (0.6-4.6); Lymphocytes % 15.2 %; Mean Corpuscular HGB Conc 33.6 g/dL (31.6-35.5); Mean Corpuscular Hemoglobin 31.5 pg (28.0-33.3); Mean Corpuscular Volume 93.9 fL (83.0-100.0); Mean Platelet Volume 10.1 fL (9.4-12.4); Monocytes # 0.1 K/mcL (0.0-1.3); Monocytes % 1.5 %; Neutrophils # 6.8 K/mcL (1.6-8.9); Platelet Count 214 K/mcL (140-400); Red Cell Distribution Width 13.1 % (11.5-14.5); Segmented Neutrophils % 82.7 %; White Blood Count 8.2 K/mcL (4.3-11.1)
[2020-04-06 01:34] LABS: Calcium 9.2 mg/dL (8.6-10.3); Potassium 4.5 mEq/L (3.5-5.1)
[2020-04-06] MEDS: *HR* Heparin 5,000 UNIT/ML VIAL SQ SCH (05:46)
[2020-04-06] MEDS: Insulin LISPRO 300 UNITS/3 ML VIAL SQ SCH ×3 (09:56→17:42)
[2020-04-06] MEDS: predniSONE 20 MG TABLET PO SCH (09:57)
[2020-04-06] MEDS ORDERED: Insulin DETEMIR 100 UNIT/ML X5UNITS SQ SCH (10:00)
[2020-04-06] MEDS ORDERED: Gabapentin 300 MG CAPSULE PO SCH (11:30)
[2020-04-06] MEDS ORDERED: hydrALAZINE 10 MG TABLET PO SCH (11:30)
[2020-04-06] MEDS ORDERED: carvediloL 6.25 MG TABLET PO SCH (11:30)
[2020-04-06] MEDS ORDERED: Furosemide 40 MG TABLET PO SCH (12:00)
[2020-04-06 16:24] VITALS: BP 150/74
[2020-04-07] MEDS ORDERED: Furosemide 40 MG TABLET PO SCH (09:00)
== END 2020-04-06 18:29 | disposition home health service (06) ==
LOC: EMEROOARM 07:42 → 3NENU 07:42 → SUATTDRO 12:49 → 3NENU 13:30
PROVIDERS: ADMIT Internal Medicine; ATTEND Internal Medicine

== ENCOUNTER 2020-09-29 15:35 | Observation (INO) ==
[2020-09-29] MEDS ORDERED: Pantoprazole 80 MG in 0.9 % Sodium Chloride 50 ML IVPB ONE (16:09)
[2020-09-29] MEDS ORDERED: Pantoprazole 40 MG in 0.9 % Sodium Chloride Mini Bag 100 ML IVC SCH (16:15)
[2020-09-29 17:03] LABS: Basophils % 0.1 %; Eosinophils # 0.1 K/mcL (0.0-0.6); Eosinophils % 1.1 %; Hemoglobin 6.9 g/dL (12.9-16.9); Immature Granulocytes % 0.3 % (0-4); Lymphocytes # 1.7 K/mcL (0.6-4.6); Lymphocytes % 23.6 %; Mean Corpuscular HGB Conc 31.4 g/dL (31.6-35.5); Mean Corpuscular Volume 95.7 fL (83.0-100.0); Mean Platelet Volume 10.1 fL (9.4-12.4); Monocytes # 0.5 K/mcL (0.0-1.3); Monocytes % 6.3 %; Neutrophils # 5.1 K/mcL (1.6-8.9); Platelet Count 228 K/mcL (140-400); Red Cell Distribution Width 13.3 % (11.5-14.5); Segmented Neutrophils % 68.6 %; White Blood Count 7.4 K/mcL (4.3-11.1)
[2020-09-29 17:11] LABS: Prothrombin Time 11.8 Seconds (9.4-12.1)
[2020-09-29 17:14] LABS: Activated Partial Thrombo Time 24.9 Seconds (26.0-36.0)
[2020-09-29 17:23] LABS: BUN/Creatinine Ratio 12 (6-26); Blood Urea Nitrogen 19 mg/dL (8-23); Carbon Dioxide 27 mEq/L (23-29); Chloride 105 mEq/L (98-107); Glucose 309 mg/dL (70-105); Osmolality,Calculated 302 (280-300); Potassium 4.2 mEq/L (3.5-5.1); Sodium 139 mEq/L (136-145); Troponin I < 0.03 ng/mL (< 0.04); eGFR For African Americans 50 (> 60); eGFR For Non-African Americans 41 (> 60)
[2020-09-29] MEDS ORDERED: Acetaminophen 325 MG TABLET PO PRN (21:31)
[2020-09-29] MEDS ORDERED: Naloxone 0.4 MG/ML INJ IVP PRN (21:31)
[2020-09-29] MEDS ORDERED: Ondansetron 4 MG/2 ML VIAL IVP PRN (21:31)
[2020-09-29] MEDS ORDERED: SODIUM CHLORIDE/NAHCO3/KCL/PEG 4,000 ML SOLN.RECON PO ONE ×2 (21:36→21:39)
[2020-09-29] MEDS ORDERED: *HR* Dextrose 50 % in Water (Vial) 50 ML VIAL IVP PRN (23:09)
[2020-09-29] MEDS ORDERED: Dextrose Gel 15 GM/37.5 ML TUBE PO PRN ×2 (23:09)
[2020-09-29] MEDS ORDERED: D5% in Water 1,000 ML IVC PRN (23:09)
[2020-09-29] MEDS: Insulin LISPRO 300 UNITS/3 ML VIAL SUBQ SCH (23:30)
[2020-09-30 05:30] LABS: Basophils % 0.3 %; Eosinophils # 0.1 K/mcL (0.0-0.6); Eosinophils % 1.6 %; Hematocrit 25.5 % (37.5-50.1); Hemoglobin 8.2 g/dL (12.9-16.9); Immature Granulocytes % 0.4 % (0-4); Lymphocytes # 2.5 K/mcL (0.6-4.6); Lymphocytes % 33.6 %; Mean Corpuscular HGB Conc 32.2 g/dL (31.6-35.5); Mean Corpuscular Hemoglobin 30.5 pg (28.0-33.3); Mean Corpuscular Volume 94.8 fL (83.0-100.0); Mean Platelet Volume 10.3 fL (9.4-12.4); Monocytes # 0.5 K/mcL (0.0-1.3); Monocytes % 7.4 %; Neutrophils # 4.1 K/mcL (1.6-8.9); Platelet Count 244 K/mcL (140-400); Red Blood Count 2.69 M/mcL (4.19-5.50); Red Cell Distribution Width 13.4 % (11.5-14.5); Segmented Neutrophils % 56.7 %; White Blood Count 7.3 K/mcL (4.3-11.1)
[2020-09-30 05:31] LABS: Prothrombin Time 11.8 Seconds (9.4-12.1)
[2020-09-30 05:48] LABS: Albumin/Globulin Ratio 1.6 (1.1-2.2); Bilirubin,Total 0.3 mg/dL (0.3-1.0); Calcium 8.8 mg/dL (8.6-10.3); Globulin 2.5 g/dL (2.4-3.5); Magnesium 2.1 mg/dL (1.6-2.6); Potassium 3.8 mEq/L (3.5-5.1); Total Protein 6.5 g/dL (6.4-8.9)
[2020-09-30 05:55] LABS: % Iron Saturation 5 % (20-55); Iron 22 mcg/dL (65-175); Transferrin 325 mg/dL (203-362)
[2020-09-30 06:05] LABS: Ferritin 8 ng/mL (20-250)
[2020-09-30] MEDS: Insulin LISPRO 300 UNITS/3 ML VIAL SUBQ SCH ×3 (11:46→18:24)
[2020-09-30 15:26] LABS: Basophils % 0.4 %; Eosinophils # 0.2 K/mcL (0.0-0.6); Eosinophils % 2.3 %; Hematocrit 24.9 % (37.5-50.1); Hemoglobin 7.9 g/dL (12.9-16.9); Immature Granulocytes % 1.1 % (0-4); Lymphocytes # 1.9 K/mcL (0.6-4.6); Lymphocytes % 26.4 %; Mean Corpuscular HGB Conc 31.7 g/dL (31.6-35.5); Mean Corpuscular Hemoglobin 29.5 pg (28.0-33.3); Mean Corpuscular Volume 92.9 fL (83.0-100.0); Mean Platelet Volume 10.4 fL (9.4-12.4); Monocytes # 0.5 K/mcL (0.0-1.3); Neutrophils # 4.6 K/mcL (1.6-8.9); Platelet Count 197 K/mcL (140-400); Red Blood Count 2.68 M/mcL (4.19-5.50); Red Cell Distribution Width 13.4 % (11.5-14.5); Segmented Neutrophils % 62.8 %; White Blood Count 7.3 K/mcL (4.3-11.1)
[2020-09-30 19:48] LABS: Basophils % 0.3 %; Eosinophils # 0.1 K/mcL (0.0-0.6); Eosinophils % 2.1 %; Hematocrit 26.4 % (37.5-50.1); Hemoglobin 7.9 g/dL (12.9-16.9); Immature Granulocytes % 0.5 % (0-4); Lymphocytes # 1.9 K/mcL (0.6-4.6); Lymphocytes % 29.8 %; Mean Corpuscular HGB Conc 29.9 g/dL (31.6-35.5); Mean Corpuscular Hemoglobin 29.3 pg (28.0-33.3); Mean Corpuscular Volume 97.8 fL (83.0-100.0); Mean Platelet Volume 9.9 fL (9.4-12.4); Monocytes # 0.5 K/mcL (0.0-1.3); Monocytes % 7.5 %; Neutrophils # 3.8 K/mcL (1.6-8.9); Platelet Count 210 K/mcL (140-400); Red Cell Distribution Width 13.5 % (11.5-14.5); Segmented Neutrophils % 59.8 %; White Blood Count 6.3 K/mcL (4.3-11.1)
[2020-09-30] MEDS ORDERED: Insulin DETEMIR 100 UNIT/ML X5UNITS SUBQ SCH (21:00)
[2020-10-01 06:45] LABS: Basophils % 0.4 %; Eosinophils # 0.1 K/mcL (0.0-0.6); Eosinophils % 1.8 %; Hematocrit 23.3 % (37.5-50.1); Hemoglobin 7.4 g/dL (12.9-16.9); Immature Granulocytes % 0.3 % (0-4); Lymphocytes # 1.8 K/mcL (0.6-4.6); Lymphocytes % 25.7 %; Mean Corpuscular HGB Conc 31.8 g/dL (31.6-35.5); Mean Corpuscular Hemoglobin 30.2 pg (28.0-33.3); Mean Corpuscular Volume 95.1 fL (83.0-100.0); Mean Platelet Volume 10.2 fL (9.4-12.4); Monocytes # 0.5 K/mcL (0.0-1.3); Monocytes % 6.6 %; Neutrophils # 4.5 K/mcL (1.6-8.9); Platelet Count 223 K/mcL (140-400); Red Blood Count 2.45 M/mcL (4.19-5.50); Red Cell Distribution Width 13.5 % (11.5-14.5); Segmented Neutrophils % 65.2 %; White Blood Count 6.8 K/mcL (4.3-11.1)
[2020-10-01 07:10] LABS: BUN/Creatinine Ratio 9 (6-26); Blood Urea Nitrogen 11 mg/dL (8-23); Calcium 8.4 mg/dL (8.6-10.3); Carbon Dioxide 22 mEq/L (23-29); Chloride 108 mEq/L (98-107); Glucose 197 mg/dL (70-105); Osmolality,Calculated 287 (280-300); Sodium 136 mEq/L (136-145); eGFR For African Americans > 60 (> 60); eGFR For Non-African Americans 56 (> 60)
[2020-10-01] MEDS: Insulin LISPRO 300 UNITS/3 ML VIAL SUBQ SCH ×3 (07:14→17:15)
[2020-10-01 07:23] LABS: Ferritin 8 ng/mL (20-250)
[2020-10-01] MEDS ORDERED: Simethicone 40 MG/0.6 ML MLS IR ONE (07:42)
[2020-10-01] MEDS ORDERED: 0.9 % Sodium Chloride 1,000 ML IVC SCH (08:15)
[2020-10-01 12:22] LABS: Estimated Average Glucose 180 mg/dl; Hemoglobin A1C 7.9 %
[2020-10-01] MEDS ORDERED: Cyanocobalamin (B-12) 1,000 MCG TABLET PO SCH (13:15)
[2020-10-01] MEDS ORDERED: hydrALAZINE 10 MG TABLET PO SCH (15:00)
[2020-10-01 15:24] VITALS: BP 148/71
[2020-10-01] MEDS ORDERED: Iron Sucrose Complex 250 MG in 0.9 % Sodium Chloride 250 ML IVPB ONE (16:07)
[2020-10-01] MEDS ORDERED: carvediloL 6.25 MG TABLET PO SCH (17:00)
[2020-10-01] MEDS ORDERED: Gabapentin 300 MG CAPSULE PO SCH (21:00)
[2020-10-02] MEDS ORDERED: Pyridoxine (B-6) 50 MG TABLET PO SCH (09:00)
[2020-10-02] MEDS ORDERED: NON-FORMULARY MEDICATION 1 EACH EACH (Calcium Carbonate/Vitamin D3 [Calcium 500-Vit D3 125 PO SCH (09:00)
[2020-10-02] MEDS ORDERED: Cholecalciferol (D-3) 1,000 UNIT (25MCG) TABLET PO SCH (09:00)
== END 2020-10-01 19:33 | disposition home or self-care (01) ==
LOC: 3ANU 15:35 → EMEROOARM 15:35 → SUATTDRO 21:20 → 3ANU 22:24
PROVIDERS: ADMIT Student in an Organized Health Care Education/Training Program; ATTEND Pharmacist

== ENCOUNTER 2021-01-18 17:46 | Inpatient (IN) ==
[2021-01-18 18:42] LABS: Hematocrit 42.1 % (37.5-50.1); Hemoglobin 13.2 g/dL (12.9-16.9); Immature Granulocytes % 0.2 % (0-4); Lymphocytes # 1.1 K/mcL (0.6-4.6); Mean Corpuscular HGB Conc 31.4 g/dL (31.6-35.5); Mean Corpuscular Volume 89.4 fL (83.0-100.0); Mean Platelet Volume 10.4 fL (9.4-12.4); Monocytes # 0.3 K/mcL (0.0-1.3); Monocytes % 6.6 %; Neutrophils # 2.7 K/mcL (1.6-8.9); Platelet Count 111 K/mcL (140-400); Red Blood Count 4.71 M/mcL (4.19-5.50); Red Cell Distribution Width 21.9 % (11.5-14.5); Segmented Neutrophils % 66.2 %; White Blood Count 4.1 K/mcL (4.3-11.1)
[2021-01-18 18:50] LABS: VBG HCO3 28 mEq/L (21-27); VBG PCO2 55 mmHg (41-51); VBG PH 7.32 pH Units (7.32-7.42); VBG PO2 31 mmHg (25-50)
[2021-01-18 19:00] LABS: INR 1.2; Prothrombin Time 12.9 Seconds (9.4-12.1)
[2021-01-18 19:03] LABS: Activated Partial Thrombo Time 31.3 Seconds (26.0-36.0)
[2021-01-18] MEDS: 0.9 % Sodium Chloride 1,000 ML IVC SCH (19:03)
[2021-01-18 19:50] LABS: Bilirubin,Urine Negative (Negative); Blood,Urine Small (Negative); Clarity,Urine Clear (Clear); Color,Urine Light-Yellow (Yellow); Glucose,Urine (UA) >=1000 mg/dL (Normal); Hyaline Casts,Urine Few per lpf (None Seen); Ketones,Urine Negative (Negative); Leukocyte Esterase,Urine Negative (Negative); Nitrite,Urine Negative (Negative); Protein,Urine 30 mg/dL (Neg-Trace); RBC,Urine 0-3 per hpf (0-3); Specific Gravity,Urine 1.025 (1.010-1.025); Urobilinogen,Urine Normal (Normal); WBC,Urine 0-3 per hpf (0-3)
[2021-01-18 19:53] LABS: Albumin 3.9 g/dL (3.5-5.7); Albumin/Globulin Ratio 1.1 (1.1-2.2); Bilirubin,Direct 0.1 mg/dL (0.0-0.2); Bilirubin,Indirect 0.3 mg/dL (0.0-1.0); Bilirubin,Total 0.4 mg/dL (0.3-1.0); Calcium 8.6 mg/dL (8.6-10.3); Globulin 3.5 g/dL (2.4-3.5); Magnesium 2.1 mg/dL (1.6-2.6); Potassium 4.6 mEq/L (3.5-5.1); Total Protein 7.4 g/dL (6.4-8.9); Troponin I 0.03 ng/mL (< 0.04)
[2021-01-18 20:10] LABS: Influenza A PCR Negative (Negative); Influenza B PCR Negative (Negative); Resp. Syncytial Virus PCR Negative (Negative)
[2021-01-18 20:23] LABS: SARS-CoV-2 by PCR (In House) Positive (Negative)
[2021-01-18] MEDS ORDERED: Insulin Human Regular 10 UNIT in 0.9 % Sodium Chloride 10 ML IV ONE (20:57)
[2021-01-18] MEDS ORDERED: Naloxone 0.4 MG/ML INJ IVP PRN (23:01)
[2021-01-18] MEDS ORDERED: Acetaminophen 325 MG TABLET PO PRN (23:01)
[2021-01-18] MEDS ORDERED: Ondansetron 4 MG/2 ML VIAL IVP PRN (23:01)
[2021-01-18] MEDS ORDERED: Dextrose Gel 15 GM/37.5 ML TUBE PO PRN ×2 (23:05)
[2021-01-18] MEDS ORDERED: *HR* Dextrose 50 % in Water (Syg) 50 ML SYRINGE IVP PRN (23:05)
[2021-01-18] MEDS ORDERED: D5% in Water 1,000 ML IVC PRN (23:05)
[2021-01-19 01:15] LABS: Albumin 3.5 g/dL (3.5-5.7); Albumin/Globulin Ratio 1.3 (1.1-2.2); Bilirubin,Total 0.3 mg/dL (0.3-1.0); Fibrinogen 381 mg/dL (169-393); Globulin 2.8 g/dL (2.4-3.5); Phosphorous 3.2 mg/dL (2.7-4.5); Total Protein 6.3 g/dL (6.4-8.9)
[2021-01-19 01:18] LABS: Hematocrit 39.6 % (37.5-50.1); Mean Corpuscular Volume 91.2 fL (83.0-100.0); Red Blood Count 4.34 M/mcL (4.19-5.50)
[2021-01-19 01:20] LABS: Hemoglobin 12.3 g/dL (12.9-16.9); Immature Granulocytes % 0.6 % (0-4); Immature Platelets 2.9 % (1.1-6.1); Lymphocytes # 1.1 K/mcL (0.6-4.6); Lymphocytes % 31.2 %; Mean Corpuscular HGB Conc 31.1 g/dL (31.6-35.5); Mean Corpuscular Hemoglobin 28.3 pg (28.0-33.3); Mean Platelet Volume 10.2 fL (9.4-12.4); Monocytes # 0.2 K/mcL (0.0-1.3); Monocytes % 6.2 %; Neutrophils # 2.2 K/mcL (1.6-8.9); Red Cell Distribution Width 21.5 % (11.5-14.5); White Blood Count 3.5 K/mcL (4.3-11.1)
[2021-01-19 01:22] LABS: D-Dimer 703 ng/mLFEU (0-500)
[2021-01-19 01:26] LABS: Platelet Count 90 K/mcL (140-400)
[2021-01-19 01:28] LABS: Thyroid Stimulating Hormone 1.722 mcIU/mL (0.340-5.600)
[2021-01-19 01:41] LABS: Estimated Average Glucose 286 mg/dl; Hemoglobin A1C 11.6 %
[2021-01-19] MEDS: Insulin LISPRO 300 UNITS/3 ML VIAL SUBQ SCH ×6 (02:04→20:53)
[2021-01-19] MEDS: *HR* Heparin 5,000 UNIT/ML VIAL SQ SCH ×3 (06:25→20:44)
[2021-01-19] MEDS: 0.9 % Sodium Chloride 1,000 ML IVC SCH (07:50)
[2021-01-19] MEDS ORDERED: Ipratropium 1 PUFF INHALER IH SCH (08:00)
[2021-01-19] MEDS: Ipratropium 1 PUFF INHALER IH SCH ×2 (16:33→23:10)
[2021-01-19] MEDS: levoFLOXacin 750 MG/150 ML 750 MG/150 ML BAG IVPB SCH (16:55)
[2021-01-19] MEDS: cefTRIAXone 1,000 MG in Water for inj. (sterile) 10 ML IVP SCH (17:16)
[2021-01-19] MEDS: Azithromycin 500 MG in 0.9 % Sodium Chloride 250 ML IVPB SCH (17:18)
[2021-01-19] MEDS: Cyanocobalamin (B-12) 1,000 MCG TABLET PO SCH (17:22)
[2021-01-19] MEDS: hydrALAZINE 10 MG TABLET PO SCH ×2 (17:22→20:44)
[2021-01-19] MEDS: Furosemide 40 MG TABLET PO SCH (20:44)
[2021-01-19] MEDS: carvediloL 6.25 MG TABLET PO SCH (20:44)
[2021-01-19] MEDS: Gabapentin 300 MG CAPSULE PO SCH (20:44)
[2021-01-20] MEDS: Ipratropium 1 PUFF INHALER IH SCH ×4 (03:53→22:23)
[2021-01-20] MEDS: *HR* Heparin 5,000 UNIT/ML VIAL SQ SCH ×3 (05:09→20:56)
[2021-01-20 06:48] LABS: Mean Corpuscular Volume 87.3 fL (83.0-100.0)
[2021-01-20 06:51] LABS: Basophils % 0.2 %; Hematocrit 39.2 % (37.5-50.1); Hemoglobin 12.4 g/dL (12.9-16.9); Immature Granulocytes % 0.5 % (0-4); Immature Platelets 5.5 % (1.1-6.1); Lymphocytes # 0.7 K/mcL (0.6-4.6); Lymphocytes % 16.6 %; Mean Corpuscular HGB Conc 31.6 g/dL (31.6-35.5); Mean Corpuscular Hemoglobin 27.6 pg (28.0-33.3); Mean Platelet Volume 10.8 fL (9.4-12.4); Monocytes # 0.2 K/mcL (0.0-1.3); Monocytes % 4.6 %; Neutrophils # 3.4 K/mcL (1.6-8.9); Platelet Count 103 K/mcL (140-400); Red Blood Count 4.49 M/mcL (4.19-5.50); Red Cell Distribution Width 21.2 % (11.5-14.5); Segmented Neutrophils % 78.1 %; White Blood Count 4.3 K/mcL (4.3-11.1)
[2021-01-20 07:02] LABS: Albumin 3.6 g/dL (3.5-5.7); Albumin/Globulin Ratio 1.2 (1.1-2.2); Bilirubin,Total 0.3 mg/dL (0.3-1.0); Calcium 8.8 mg/dL (8.6-10.3); Globulin 3.1 g/dL (2.4-3.5); Potassium 4.6 mEq/L (3.5-5.1); Total Protein 6.7 g/dL (6.4-8.9)
[2021-01-20] MEDS ORDERED: NON-FORMULARY MEDICATION 1 EACH EACH (Calcium Carbonate/Vitamin D3 [Calcium 500-Vit D3 125 PO SCH (09:00)
[2021-01-20] MEDS: cefTRIAXone 1,000 MG in Water for inj. (sterile) 10 ML IVP SCH (09:54)
[2021-01-20] MEDS: Insulin LISPRO 300 UNITS/3 ML VIAL SUBQ SCH ×4 (09:55→20:56)
[2021-01-20] MEDS: Pyridoxine (B-6) 50 MG TABLET PO SCH (09:56)
[2021-01-20] MEDS: carvediloL 6.25 MG TABLET PO SCH ×2 (09:56→17:57)
[2021-01-20] MEDS: Gabapentin 300 MG CAPSULE PO SCH ×2 (09:56→20:56)
[2021-01-20] MEDS: Cholecalciferol (D-3) 1,000 UNIT (25MCG) TABLET PO SCH (09:56)
[2021-01-20] MEDS: hydrALAZINE 10 MG TABLET PO SCH ×3 (09:56→20:56)
[2021-01-20] MEDS ORDERED: Insulin Human Regular 10 UNIT in 0.9 % Sodium Chloride 10 ML IV ONE (12:41)
[2021-01-20] MEDS: Azithromycin 500 MG in 0.9 % Sodium Chloride 250 ML IVPB SCH (17:56)
[2021-01-20] MEDS: Furosemide 40 MG TABLET PO SCH (20:56)
[2021-01-20] MEDS: Insulin DETEMIR 100 UNIT/ML X5UNITS SUBQ SCH (20:57)
[2021-01-21 01:19] LABS: Hematocrit 41.3 % (37.5-50.1); Hemoglobin 12.9 g/dL (12.9-16.9); Immature Granulocytes % 0.7 % (0-4); Immature Platelets 5.9 % (1.1-6.1); Lymphocytes # 0.8 K/mcL (0.6-4.6); Lymphocytes % 11.3 %; Mean Corpuscular HGB Conc 31.2 g/dL (31.6-35.5); Mean Corpuscular Hemoglobin 27.8 pg (28.0-33.3); Mean Platelet Volume 10.7 fL (9.4-12.4); Monocytes # 0.2 K/mcL (0.0-1.3); Monocytes % 3.1 %; Neutrophils # 6.3 K/mcL (1.6-8.9); Platelet Count 104 K/mcL (140-400); Red Blood Count 4.64 M/mcL (4.19-5.50); Segmented Neutrophils % 84.9 %; White Blood Count 7.4 K/mcL (4.3-11.1)
[2021-01-21 01:46] LABS: Albumin 3.6 g/dL (3.5-5.7); Albumin/Globulin Ratio 1.1 (1.1-2.2); Bilirubin,Total 0.3 mg/dL (0.3-1.0); Calcium 8.7 mg/dL (8.6-10.3); Globulin 3.2 g/dL (2.4-3.5); Potassium 4.4 mEq/L (3.5-5.1); Total Protein 6.8 g/dL (6.4-8.9)
[2021-01-21] MEDS: Ipratropium 1 PUFF INHALER IH SCH ×4 (04:04→21:03)
[2021-01-21] MEDS: *HR* Heparin 5,000 UNIT/ML VIAL SQ SCH ×3 (04:41→20:09)
[2021-01-21] MEDS: Insulin LISPRO 300 UNITS/3 ML VIAL SUBQ SCH ×4 (08:01→20:12)
[2021-01-21] MEDS: cefTRIAXone 1,000 MG in Water for inj. (sterile) 10 ML IVP SCH (08:01)
[2021-01-21] MEDS: hydrALAZINE 10 MG TABLET PO SCH ×3 (08:03→20:05)
[2021-01-21] MEDS: carvediloL 6.25 MG TABLET PO SCH ×2 (08:03→17:22)
[2021-01-21] MEDS: Pyridoxine (B-6) 50 MG TABLET PO SCH (08:03)
[2021-01-21] MEDS: Cholecalciferol (D-3) 1,000 UNIT (25MCG) TABLET PO SCH (08:03)
[2021-01-21] MEDS: Gabapentin 300 MG CAPSULE PO SCH ×2 (08:04→20:05)
[2021-01-21] MEDS: Cyanocobalamin (B-12) 1,000 MCG TABLET PO SCH (14:30)
[2021-01-21] MEDS: Azithromycin 500 MG in 0.9 % Sodium Chloride 250 ML IVPB SCH (17:23)
[2021-01-21] MEDS: Furosemide 40 MG TABLET PO SCH (20:05)
[2021-01-21] MEDS: Insulin DETEMIR 100 UNIT/ML X5UNITS SUBQ SCH (20:11)
[2021-01-22 01:55] LABS: Hemoglobin 13.1 g/dL (12.9-16.9)
[2021-01-22 01:58] LABS: Hematocrit 40.4 % (37.5-50.1); Immature Granulocytes % 0.9 % (0-4); Immature Platelets 6.8 % (1.1-6.1); Lymphocytes # 0.9 K/mcL (0.6-4.6); Lymphocytes % 10.7 %; Mean Corpuscular HGB Conc 32.4 g/dL (31.6-35.5); Mean Corpuscular Hemoglobin 28.2 pg (28.0-33.3); Mean Corpuscular Volume 87.1 fL (83.0-100.0); Mean Platelet Volume 10.5 fL (9.4-12.4); Monocytes # 0.3 K/mcL (0.0-1.3); Monocytes % 3.3 %; Platelet Count 112 K/mcL (140-400); Red Blood Count 4.64 M/mcL (4.19-5.50); Red Cell Distribution Width 20.9 % (11.5-14.5); Segmented Neutrophils % 85.1 %; White Blood Count 8.2 K/mcL (4.3-11.1)
[2021-01-22 02:03] LABS: Albumin 3.5 g/dL (3.5-5.7); Bilirubin,Total 0.4 mg/dL (0.3-1.0); Calcium 9.1 mg/dL (8.6-10.3); Globulin 3.4 g/dL (2.4-3.5); Potassium 4.1 mEq/L (3.5-5.1); Total Protein 6.9 g/dL (6.4-8.9)
[2021-01-22] MEDS: Ipratropium 1 PUFF INHALER IH SCH ×4 (04:20→22:14)
[2021-01-22] MEDS: *HR* Heparin 5,000 UNIT/ML VIAL SQ SCH ×3 (05:10→20:37)
[2021-01-22] MEDS: carvediloL 6.25 MG TABLET PO SCH ×2 (09:09→17:28)
[2021-01-22] MEDS: Gabapentin 300 MG CAPSULE PO SCH ×2 (09:09→20:28)
[2021-01-22] MEDS: hydrALAZINE 10 MG TABLET PO SCH ×3 (09:10→20:28)
[2021-01-22] MEDS: Cholecalciferol (D-3) 1,000 UNIT (25MCG) TABLET PO SCH (09:10)
[2021-01-22] MEDS: Pyridoxine (B-6) 50 MG TABLET PO SCH (09:12)
[2021-01-22] MEDS: Insulin LISPRO 300 UNITS/3 ML VIAL SUBQ SCH ×4 (09:16→20:37)
[2021-01-22] MEDS: cefTRIAXone 1,000 MG in Water for inj. (sterile) 10 ML IVP SCH (10:22)
[2021-01-22] MEDS: Azithromycin 500 MG in 0.9 % Sodium Chloride 250 ML IVPB SCH (17:28)
[2021-01-22] MEDS: Furosemide 40 MG TABLET PO SCH (20:28)
[2021-01-22] MEDS: Insulin DETEMIR 100 UNIT/ML X5UNITS SUBQ SCH (20:37)
[2021-01-22] MEDS ORDERED: *HR* LORazepam 2 MG/ML VIAL IVP ONE (22:58)
[2021-01-22] MEDS: Dexmedetomidine HCl 400 MCG/100 ML MLS IVC SCH (23:29)
[2021-01-23 01:52] LABS: Basophils % 0.1 %; Red Cell Distribution Width 21.1 % (11.5-14.5)
[2021-01-23 01:54] LABS: Hematocrit 39.6 % (37.5-50.1); Immature Granulocytes % 0.7 % (0-4); Immature Platelets 6.2 % (1.1-6.1); Lymphocytes # 0.8 K/mcL (0.6-4.6); Lymphocytes % 8.9 %; Mean Corpuscular HGB Conc 32.8 g/dL (31.6-35.5); Mean Corpuscular Hemoglobin 28.1 pg (28.0-33.3); Mean Corpuscular Volume 85.5 fL (83.0-100.0); Mean Platelet Volume 10.9 fL (9.4-12.4); Monocytes # 0.3 K/mcL (0.0-1.3); Monocytes % 3.4 %; Platelet Count 130 K/mcL (140-400); Red Blood Count 4.63 M/mcL (4.19-5.50); Segmented Neutrophils % 86.9 %; White Blood Count 8.9 K/mcL (4.3-11.1)
[2021-01-23] MEDS: Dexmedetomidine HCl 400 MCG/100 ML MLS IVC SCH ×2 (02:01→15:08)
[2021-01-23 02:05] LABS: D-Dimer 558 ng/mLFEU (0-500); Fibrinogen 664 mg/dL (169-393); Neutrophils # 7.7 K/mcL (1.6-8.9)
[2021-01-23 02:07] LABS: Alanine Aminotransferase 34 Units/L (7-52); Albumin 3.3 g/dL (3.5-5.7); Alkaline Phosphatase 60 Units/L (34-104); Aspartate Amino Transferase 59 Units/L (13-39); BUN/Creatinine Ratio 37 (6-26); Bilirubin,Total 0.4 mg/dL (0.3-1.0); Blood Urea Nitrogen 51 mg/dL (8-23); C-Reactive Protein 113 mg/L (Less than 10); Calcium 8.9 mg/dL (8.6-10.3); Carbon Dioxide 21 mEq/L (23-29); Chloride 101 mEq/L (98-107); Globulin 3.4 g/dL (2.4-3.5); Glucose 350 mg/dL (70-105); Lactate Dehydrogenase 498 Units/L (140-271); Osmolality,Calculated 306 (280-300); Potassium 4.3 mEq/L (3.5-5.1); Sodium 134 mEq/L (136-145); Total Protein 6.7 g/dL (6.4-8.9); eGFR For African Americans > 60 (> 60); eGFR For Non-African Americans 51 (> 60)
[2021-01-23 02:25] LABS: Ferritin 540 ng/mL (20-250)
[2021-01-23 02:45] LABS: Reactive Lymphocytes Present (Not Present)
[2021-01-23 02:46] LABS: Platelet Estimate Slight Decrease (Normal)
[2021-01-23] MEDS: Ipratropium 1 PUFF INHALER IH SCH ×4 (04:31→20:17)
[2021-01-23] MEDS: *HR* Heparin 5,000 UNIT/ML VIAL SQ SCH ×3 (05:14→20:28)
[2021-01-23] MEDS: Dexamethasone Sodium Phos/PF 10 MG/ML VIAL IVP SCH (09:14)
[2021-01-23] MEDS: Gabapentin 300 MG CAPSULE PO SCH ×2 (09:15→20:27)
[2021-01-23] MEDS: hydrALAZINE 10 MG TABLET PO SCH ×3 (09:15→20:27)
[2021-01-23] MEDS: Pyridoxine (B-6) 50 MG TABLET PO SCH (09:15)
[2021-01-23] MEDS: carvediloL 6.25 MG TABLET PO SCH ×2 (09:15→17:46)
[2021-01-23] MEDS: Cholecalciferol (D-3) 1,000 UNIT (25MCG) TABLET PO SCH (09:16)
[2021-01-23] MEDS: cefTRIAXone 1,000 MG in Water for inj. (sterile) 10 ML IVP SCH (09:16)
[2021-01-23] MEDS: Insulin LISPRO 300 UNITS/3 ML VIAL SUBQ SCH ×4 (09:16→20:28)
[2021-01-23 11:16] LABS: ABG Base Excess 0 mEq/L (-2 to 3); ABG HCO3 24 mEq/L (21-27); ABG Oxygen Saturation 92 % (95-98); ABG PCO2 35 mmHg (35-45); ABG PH 7.45 pH Units (7.32-7.45); ABG PO2 60 mmHg (85-104); ABG TCO2 25 mEq/L (20-26)
[2021-01-23] MEDS ORDERED: TOCILIZUMAB 810 MG in 0.9 % Sodium Chloride 95.5 ML IVPB ONE (13:15)
[2021-01-23] MEDS: Cyanocobalamin (B-12) 1,000 MCG TABLET PO SCH (15:09)
[2021-01-23] MEDS: Azithromycin 500 MG in 0.9 % Sodium Chloride 250 ML IVPB SCH (17:45)
[2021-01-23] MEDS: QUEtiapine Fumarate 25 MG TABLET PO SCH (20:27)
[2021-01-23] MEDS: Insulin DETEMIR 100 UNIT/ML X5UNITS SUBQ SCH (20:28)
[2021-01-24] MEDS: Ipratropium 1 PUFF INHALER IH SCH ×4 (03:37→20:44)
[2021-01-24 04:26] LABS: Basophils % 0.1 %; Hematocrit 41.8 % (37.5-50.1); Hemoglobin 13.6 g/dL (12.9-16.9); Immature Granulocytes % 0.9 % (0-4); Lymphocytes # 0.8 K/mcL (0.6-4.6); Lymphocytes % 9.3 %; Mean Corpuscular HGB Conc 32.5 g/dL (31.6-35.5); Mean Corpuscular Hemoglobin 27.8 pg (28.0-33.3); Mean Corpuscular Volume 85.3 fL (83.0-100.0); Mean Platelet Volume 10.4 fL (9.4-12.4); Monocytes # 0.3 K/mcL (0.0-1.3); Platelet Count 157 K/mcL (140-400); Red Cell Distribution Width 20.7 % (11.5-14.5); Segmented Neutrophils % 86.7 %; White Blood Count 8.6 K/mcL (4.3-11.1)
[2021-01-24 04:37] LABS: Neutrophils # 7.5 K/mcL (1.6-8.9)
[2021-01-24 04:48] LABS: Albumin 3.4 g/dL (3.5-5.7); Bilirubin,Total 0.4 mg/dL (0.3-1.0); Calcium 9.1 mg/dL (8.6-10.3); Globulin 3.4 g/dL (2.4-3.5); Potassium 4.8 mEq/L (3.5-5.1); Total Protein 6.8 g/dL (6.4-8.9)
[2021-01-24] MEDS: *HR* Heparin 5,000 UNIT/ML VIAL SQ SCH ×3 (06:58→21:20)
[2021-01-24] MEDS: Dexmedetomidine HCl 400 MCG/100 ML MLS IVC SCH (07:07)
[2021-01-24] MEDS ORDERED: Insulin DETEMIR 100 UNIT/ML X5UNITS SUBQ SCH (09:00)
[2021-01-24] MEDS: Insulin LISPRO 300 UNITS/3 ML VIAL SUBQ SCH ×5 (09:43→21:21)
[2021-01-24] MEDS: Gabapentin 300 MG CAPSULE PO SCH ×2 (09:44→21:35)
[2021-01-24] MEDS: carvediloL 6.25 MG TABLET PO SCH ×2 (09:44→17:44)
[2021-01-24] MEDS: Dexamethasone Sodium Phos/PF 10 MG/ML VIAL IVP SCH (09:44)
[2021-01-24] MEDS: Cholecalciferol (D-3) 1,000 UNIT (25MCG) TABLET PO SCH (09:44)
[2021-01-24] MEDS: hydrALAZINE 10 MG TABLET PO SCH ×3 (09:44→21:19)
[2021-01-24] MEDS: Pyridoxine (B-6) 50 MG TABLET PO SCH (09:44)
[2021-01-24] MEDS: cefTRIAXone 1,000 MG in Water for inj. (sterile) 10 ML IVP SCH (09:45)
[2021-01-24] MEDS ORDERED: Insulin Human Regular 10 UNIT in 0.9 % Sodium Chloride 10 ML IV ONE (12:21)
[2021-01-24] MEDS: QUEtiapine Fumarate 25 MG TABLET PO SCH (21:19)
[2021-01-24] MEDS: Insulin DETEMIR 100 UNIT/ML X5UNITS SUBQ SCH (21:20)
[2021-01-25 03:31] LABS: Basophils % 0.2 %; Hematocrit 45.8 % (37.5-50.1); Hemoglobin 14.5 g/dL (12.9-16.9); Immature Granulocytes % 1.7 % (0-4); Lymphocytes # 0.7 K/mcL (0.6-4.6); Lymphocytes % 5.6 %; Mean Corpuscular HGB Conc 31.7 g/dL (31.6-35.5); Mean Corpuscular Hemoglobin 27.5 pg (28.0-33.3); Mean Corpuscular Volume 86.7 fL (83.0-100.0); Mean Platelet Volume 10.4 fL (9.4-12.4); Monocytes # 0.4 K/mcL (0.0-1.3); Monocytes % 2.9 %; Neutrophils # 11.9 K/mcL (1.6-8.9); Platelet Count 220 K/mcL (140-400); Red Blood Count 5.28 M/mcL (4.19-5.50); Segmented Neutrophils % 89.6 %; White Blood Count 13.3 K/mcL (4.3-11.1)
[2021-01-25 03:41] LABS: Fibrinogen 537 mg/dL (169-393)
[2021-01-25 03:42] LABS: D-Dimer 937 ng/mLFEU (0-500)
[2021-01-25 04:18] LABS: Alanine Aminotransferase 31 Units/L (7-52); Albumin 3.5 g/dL (3.5-5.7); Albumin/Globulin Ratio 0.9 (1.1-2.2); Alkaline Phosphatase 72 Units/L (34-104); Aspartate Amino Transferase 43 Units/L (13-39); BUN/Creatinine Ratio 47 (6-26); Bilirubin,Total 0.5 mg/dL (0.3-1.0); Blood Urea Nitrogen 66 mg/dL (8-23); C-Reactive Protein 34 mg/L (Less than 10); Calcium 9.4 mg/dL (8.6-10.3); Carbon Dioxide 22 mEq/L (23-29); Chloride 108 mEq/L (98-107); Ferritin 804 ng/mL (20-250); Globulin 3.7 g/dL (2.4-3.5); Glucose 155 mg/dL (70-105); Lactate Dehydrogenase 732 Units/L (140-271); Osmolality,Calculated 310 (280-300); Potassium 4.6 mEq/L (3.5-5.1); Sodium 139 mEq/L (136-145); Total Protein 7.2 g/dL (6.4-8.9); eGFR For African Americans > 60 (> 60); eGFR For Non-African Americans 50 (> 60)
[2021-01-25] MEDS: *HR* Heparin 5,000 UNIT/ML VIAL SQ SCH ×3 (05:04→21:10)
[2021-01-25] MEDS: Ipratropium 1 PUFF INHALER IH SCH ×4 (05:39→20:14)
[2021-01-25] MEDS: carvediloL 6.25 MG TABLET PO SCH ×2 (09:07→17:20)
[2021-01-25] MEDS: Cholecalciferol (D-3) 1,000 UNIT (25MCG) TABLET PO SCH (09:07)
[2021-01-25] MEDS: Pyridoxine (B-6) 50 MG TABLET PO SCH (09:08)
[2021-01-25] MEDS: Gabapentin 300 MG CAPSULE PO SCH ×2 (09:08→21:10)
[2021-01-25] MEDS: hydrALAZINE 10 MG TABLET PO SCH ×3 (09:08→21:10)
[2021-01-25] MEDS: Insulin LISPRO 300 UNITS/3 ML VIAL SUBQ SCH ×7 (10:11→23:37)
[2021-01-25] MEDS: Dexamethasone Sodium Phos/PF 10 MG/ML VIAL IVP SCH (10:12)
[2021-01-25 11:28] LABS: ABG Base Excess -3 mEq/L (-2 to 3); ABG HCO3 19 mEq/L (21-27); ABG Oxygen Saturation 85 % (95-98); ABG PCO2 25 mmHg (35-45); ABG PH 7.48 pH Units (7.32-7.45); ABG PO2 46 mmHg (85-104); ABG TCO2 20 mEq/L (20-26)
[2021-01-25] MEDS ORDERED: *HR* LORazepam 2 MG/ML VIAL IM STA (11:28)
[2021-01-25] MEDS: Insulin DETEMIR 100 UNIT/ML X5UNITS SUBQ SCH ×2 (12:12→23:40)
[2021-01-25] MEDS: Dexmedetomidine HCl 400 MCG/100 ML MLS IVC SCH ×2 (12:18→18:15)
[2021-01-25] MEDS ORDERED: Furosemide 20 MG/2 ML VIAL IVP ONE (12:24)
[2021-01-25] MEDS: Cyanocobalamin (B-12) 1,000 MCG TABLET PO SCH (14:36)
[2021-01-25] MEDS: QUEtiapine Fumarate 25 MG TABLET PO SCH (21:10)
[2021-01-26] MEDS: Ipratropium 1 PUFF INHALER IH SCH ×4 (04:35→20:24)
[2021-01-26] MEDS: Dexmedetomidine HCl 400 MCG/100 ML MLS IVC SCH ×3 (05:36→22:50)
[2021-01-26] MEDS: *HR* Heparin 5,000 UNIT/ML VIAL SQ SCH ×3 (05:37→21:40)
[2021-01-26 07:52] LABS: Hematocrit 45.7 % (37.5-50.1); Immature Granulocytes % 0.8 % (0-4); Lymphocytes # 0.7 K/mcL (0.6-4.6); Lymphocytes % 9.2 %; Mean Corpuscular HGB Conc 32.8 g/dL (31.6-35.5); Mean Corpuscular Hemoglobin 28.2 pg (28.0-33.3); Mean Corpuscular Volume 86.1 fL (83.0-100.0); Mean Platelet Volume 10.7 fL (9.4-12.4); Monocytes # 0.2 K/mcL (0.0-1.3); Monocytes % 2.3 %; Neutrophils # 6.5 K/mcL (1.6-8.9); Platelet Count 201 K/mcL (140-400); Red Blood Count 5.31 M/mcL (4.19-5.50); Red Cell Distribution Width 21.2 % (11.5-14.5); Segmented Neutrophils % 87.7 %; White Blood Count 7.4 K/mcL (4.3-11.1)
[2021-01-26] MEDS: Insulin LISPRO 300 UNITS/3 ML VIAL SUBQ SCH ×5 (08:03→17:56)
[2021-01-26] MEDS: Gabapentin 300 MG CAPSULE PO SCH ×2 (08:05→21:40)
[2021-01-26] MEDS: Dexamethasone Sodium Phos/PF 10 MG/ML VIAL IVP SCH (08:06)
[2021-01-26] MEDS: carvediloL 6.25 MG TABLET PO SCH ×2 (08:10→17:56)
[2021-01-26 08:11] LABS: Albumin 3.3 g/dL (3.5-5.7); Bilirubin,Total 0.6 mg/dL (0.3-1.0); Calcium 9.4 mg/dL (8.6-10.3); Globulin 3.3 g/dL (2.4-3.5); Potassium 4.9 mEq/L (3.5-5.1); Total Protein 6.6 g/dL (6.4-8.9)
[2021-01-26] MEDS: hydrALAZINE 10 MG TABLET PO SCH ×3 (08:11→21:40)
[2021-01-26] MEDS: Pyridoxine (B-6) 50 MG TABLET PO SCH (08:12)
[2021-01-26] MEDS: Cholecalciferol (D-3) 1,000 UNIT (25MCG) TABLET PO SCH (08:12)
[2021-01-26] MEDS: Insulin DETEMIR 100 UNIT/ML X5UNITS SUBQ SCH ×2 (10:35→21:39)
[2021-01-26] MEDS ORDERED: Insulin LISPRO 300 UNITS/3 ML VIAL SUBQ SCH (16:30)
[2021-01-26] MEDS: QUEtiapine Fumarate 25 MG TABLET PO SCH (21:39)
[2021-01-27] MEDS: Insulin LISPRO 300 UNITS/3 ML VIAL SUBQ SCH ×6 (00:05→21:52)
[2021-01-27] MEDS: Ipratropium 1 PUFF INHALER IH SCH ×4 (03:29→20:45)
[2021-01-27] MEDS: *HR* Heparin 5,000 UNIT/ML VIAL SQ SCH ×3 (06:08→21:51)
[2021-01-27 08:32] LABS: Basophils % 0.1 %; Hematocrit 52.4 % (37.5-50.1); Immature Granulocytes % 1.1 % (0-4); Lymphocytes # 0.9 K/mcL (0.6-4.6); Lymphocytes % 6.1 %; Mean Corpuscular HGB Conc 32.1 g/dL (31.6-35.5); Mean Corpuscular Hemoglobin 27.9 pg (28.0-33.3); Mean Platelet Volume 10.4 fL (9.4-12.4); Monocytes # 0.4 K/mcL (0.0-1.3); Monocytes % 2.3 %; Platelet Count 246 K/mcL (140-400); Red Blood Count 6.02 M/mcL (4.19-5.50); Red Cell Distribution Width 21.6 % (11.5-14.5); Segmented Neutrophils % 90.4 %
[2021-01-27] MEDS: Dexamethasone Sodium Phos/PF 10 MG/ML VIAL IVP SCH (08:37)
[2021-01-27 08:52] LABS: Calcium 9.9 mg/dL (8.6-10.3); Potassium 4.8 mEq/L (3.5-5.1)
[2021-01-27 08:54] LABS: Lactate Dehydrogenase 857 Units/L (140-271)
[2021-01-27 08:58] LABS: Neutrophils # 13.8 K/mcL (1.6-8.9); White Blood Count 15.3 K/mcL (4.3-11.1)
[2021-01-27 08:59] LABS: Hemoglobin 16.8 g/dL (12.9-16.9)
[2021-01-27 09:07] LABS: Fibrinogen 450 mg/dL (169-393)
[2021-01-27 09:09] LABS: C-Reactive Protein 8 mg/L (Less than 10)
[2021-01-27 09:13] LABS: Ferritin 558 ng/mL (20-250)
[2021-01-27 09:25] LABS: D-Dimer 4167 ng/mLFEU (0-500)
[2021-01-27] MEDS: Insulin DETEMIR 100 UNIT/ML X5UNITS SUBQ SCH (09:59)
[2021-01-27] MEDS: carvediloL 6.25 MG TABLET PO SCH ×3 (09:59→18:21)
[2021-01-27] MEDS: hydrALAZINE 10 MG TABLET PO SCH ×2 (09:59→16:14)
[2021-01-27] MEDS: Pyridoxine (B-6) 50 MG TABLET PO SCH (10:00)
[2021-01-27] MEDS: Cholecalciferol (D-3) 1,000 UNIT (25MCG) TABLET PO SCH (10:00)
[2021-01-27] MEDS: Gabapentin 300 MG CAPSULE PO SCH (10:00)
[2021-01-27] MEDS: Dexmedetomidine HCl 400 MCG/100 ML MLS IVC SCH (10:03)
[2021-01-27] MEDS ORDERED: Haloperidol Lactate 5 MG/ML VIAL IVP PRN (13:20)
[2021-01-27] MEDS ORDERED: Lidocaine -MPF 1% 5 ML AMPUL INFILT ONE (13:20)
[2021-01-27] MEDS: Cyanocobalamin (B-12) 1,000 MCG TABLET PO SCH (16:14)
[2021-01-27] MEDS: Haloperidol Lactate 5 MG/ML VIAL IVP SCH (18:21)
[2021-01-27] MEDS ORDERED: Insulin DETEMIR 100 UNIT/ML X5UNITS SUBQ SCH (21:00)
[2021-01-28] MEDS: Haloperidol Lactate 5 MG/ML VIAL IVP SCH ×4 (00:55→19:05)
[2021-01-28] MEDS: Gabapentin 100 MG CAPSULE PO SCH ×2 (01:09→10:11)
[2021-01-28] MEDS: hydrALAZINE 10 MG TABLET PO SCH ×4 (01:09→20:35)
[2021-01-28] MEDS: QUEtiapine Fumarate 25 MG TABLET PO SCH (01:10)
[2021-01-28] MEDS: Insulin LISPRO 300 UNITS/3 ML VIAL SUBQ SCH ×6 (01:11→20:39)
[2021-01-28] MEDS: Ipratropium 1 PUFF INHALER IH SCH ×4 (03:50→21:03)
[2021-01-28] MEDS: *HR* Heparin 5,000 UNIT/ML VIAL SQ SCH ×3 (05:26→20:40)
[2021-01-28 06:46] LABS: Red Cell Distribution Width 22.2 % (11.5-14.5)
[2021-01-28 06:47] LABS: Immature Platelets 5.3 % (1.1-6.1); Mean Corpuscular HGB Conc 31.6 g/dL (31.6-35.5); Mean Corpuscular Hemoglobin 27.5 pg (28.0-33.3); Mean Corpuscular Volume 86.9 fL (83.0-100.0); Mean Platelet Volume 10.5 fL (9.4-12.4); Nucleated Red Blood Cells 0.1 /100 WBC (0); Platelet Count 248 K/mcL (140-400); Red Blood Count 6.55 M/mcL (4.19-5.50); White Blood Count 25.4 K/mcL (4.3-11.1)
[2021-01-28 06:51] LABS: Hematocrit 56.9 % (37.5-50.1)
[2021-01-28 06:57] LABS: Calcium 10.3 mg/dL (8.6-10.3); Magnesium 3.4 mg/dL (1.6-2.6); Phosphorous 4.7 mg/dL (2.7-4.5)
[2021-01-28] MEDS: Dexamethasone Sodium Phos/PF 10 MG/ML VIAL IVP SCH (07:52)
[2021-01-28] MEDS: carvediloL 6.25 MG TABLET PO SCH ×2 (10:10→17:35)
[2021-01-28] MEDS: Insulin DETEMIR 100 UNIT/ML X5UNITS SUBQ SCH ×2 (10:10→20:39)
[2021-01-28] MEDS: Cholecalciferol (D-3) 1,000 UNIT (25MCG) TABLET PO SCH (10:24)
[2021-01-28] MEDS: Pyridoxine (B-6) 50 MG TABLET PO SCH (10:24)
[2021-01-28] MEDS ORDERED: *HR* Metoprolol 5 MG/5 ML VIAL IVP PRN (13:33)
[2021-01-28] MEDS ORDERED: *HR* Metoprolol 5 MG/5 ML VIAL IVP ONE (13:34)
[2021-01-28] MEDS: D5% in Water 1,000 ML IVC SCH (14:09)
[2021-01-28 14:22] LABS: Lymphocytes # 1.5 K/mcL (0.6-4.6); Neutrophils # 23.9 K/mcL (1.6-8.9); Platelet Estimate Normal (Normal)
[2021-01-28] MEDS: Pantoprazole 40 MG VIAL IVP SCH (15:53)
[2021-01-29] MEDS: Insulin LISPRO 300 UNITS/3 ML VIAL SUBQ SCH ×5 (00:20→20:48)
[2021-01-29] MEDS: Haloperidol Lactate 5 MG/ML VIAL IVP SCH ×4 (00:20→19:38)
[2021-01-29 01:49] LABS: Lymphocytes % 5.3 %; Mean Corpuscular HGB Conc 31.4 g/dL (31.6-35.5); Mean Corpuscular Hemoglobin 27.6 pg (28.0-33.3)
[2021-01-29 01:51] LABS: Basophils # 0.1 K/mcL (0.0-0.2); Basophils % 0.2 %; Hemoglobin 18.4 g/dL (12.9-16.9); Immature Granulocytes % 1.5 % (0-4); Immature Platelets 5.3 % (1.1-6.1); Lymphocytes # 1.3 K/mcL (0.6-4.6); Mean Platelet Volume 10.9 fL (9.4-12.4); Monocytes # 0.7 K/mcL (0.0-1.3); Monocytes % 2.7 %; Neutrophils # 21.9 K/mcL (1.6-8.9); Nucleated Red Blood Cells 0.1 /100 WBC (0); Platelet Count 167 K/mcL (140-400); Red Blood Count 6.66 M/mcL (4.19-5.50); Red Cell Distribution Width 22.5 % (11.5-14.5); Segmented Neutrophils % 90.3 %; White Blood Count 24.2 K/mcL (4.3-11.1)
[2021-01-29 02:06] LABS: Calcium 9.5 mg/dL (8.6-10.3); Potassium 5.5 mEq/L (3.5-5.1)
[2021-01-29 02:14] LABS: Hematocrit 58.6 % (37.5-50.1)
[2021-01-29 02:15] LABS: Anisocytosis 2+ (Not Present); Platelet Estimate Normal (Normal)
[2021-01-29] MEDS: Ipratropium 1 PUFF INHALER IH SCH ×4 (03:19→20:57)
[2021-01-29] MEDS: D5% in Water 1,000 ML IVC SCH ×2 (04:15→16:25)
[2021-01-29] MEDS: *HR* Heparin 5,000 UNIT/ML VIAL SQ SCH ×3 (05:52→20:48)
[2021-01-29] MEDS: carvediloL 6.25 MG TABLET PO SCH ×2 (09:37→17:59)
[2021-01-29] MEDS: Insulin DETEMIR 100 UNIT/ML X5UNITS SUBQ SCH ×2 (09:39→20:47)
[2021-01-29] MEDS: hydrALAZINE 10 MG TABLET PO SCH ×3 (09:39→19:45)
[2021-01-29 09:47] LABS: Magnesium 3.4 mg/dL (1.6-2.6); Phosphorous 4.9 mg/dL (2.7-4.5)
[2021-01-29] MEDS ORDERED: D10% in Water 500 ML IVC PRN (10:17)
[2021-01-29] MEDS: Pantoprazole 40 MG VIAL IVP SCH (11:41)
[2021-01-29] MEDS ORDERED: Insulin Human Regular 10 UNIT in 0.9 % Sodium Chloride 10 ML IV ONE (12:20)
[2021-01-29] MEDS: Cholecalciferol (D-3) 1,000 UNIT (25MCG) TABLET PO SCH (12:46)
[2021-01-29] MEDS: Pyridoxine (B-6) 50 MG TABLET PO SCH (12:46)
[2021-01-29] MEDS: Cyanocobalamin (B-12) 1,000 MCG TABLET PO SCH (16:23)
[2021-01-29] MEDS ORDERED: Clinimix 5%-20% SOLUTION 2,000 ML with MVI, adult with vitamin K 10 ML, Sodium Acetat... IVC SCH (17:00)
[2021-01-30] MEDS: Haloperidol Lactate 5 MG/ML VIAL IVP SCH ×2 (00:49→02:13)
[2021-01-30] MEDS: Insulin LISPRO 300 UNITS/3 ML VIAL SUBQ SCH ×2 (00:55→04:28)
[2021-01-30] MEDS: Ipratropium 1 PUFF INHALER IH SCH ×4 (03:56→21:05)
[2021-01-30 04:00] LABS: Albumin 3.1 g/dL (3.5-5.7); Bilirubin,Total 0.7 mg/dL (0.3-1.0); Calcium 9.2 mg/dL (8.6-10.3); Magnesium 3.4 mg/dL (1.6-2.6); Phosphorous 4.8 mg/dL (2.7-4.5); Potassium 5.2 mEq/L (3.5-5.1); Total Protein 6.1 g/dL (6.4-8.9)
[2021-01-30] MEDS ORDERED: Insulin Human Regular 10 UNIT in 0.9 % Sodium Chloride 10 ML IV ONE (07:33)
[2021-01-30] MEDS ORDERED: Insulin LISPRO 300 UNITS/3 ML VIAL SUBQ SCH (07:35)
[2021-01-30] MEDS: *HR* Heparin 5,000 UNIT/ML VIAL SQ SCH ×3 (08:25→22:06)
[2021-01-30] MEDS: carvediloL 6.25 MG TABLET PO SCH ×2 (08:29→16:12)
[2021-01-30] MEDS: hydrALAZINE 10 MG TABLET PO SCH ×3 (08:30→19:38)
[2021-01-30] MEDS: Cholecalciferol (D-3) 1,000 UNIT (25MCG) TABLET PO SCH (08:30)
[2021-01-30] MEDS: Pyridoxine (B-6) 50 MG TABLET PO SCH (08:30)
[2021-01-30] MEDS: Pantoprazole 40 MG VIAL IVP SCH (08:43)
[2021-01-30] MEDS: D5% in Water 1,000 ML IVC SCH (08:51)
[2021-01-30] MEDS ORDERED: Insulin DETEMIR 100 UNIT/ML X5UNITS SUBQ SCH (09:00)
[2021-01-30] MEDS ORDERED: Haloperidol Lactate 5 MG/ML VIAL IVP SCH (09:00)
[2021-01-30] MEDS ORDERED: *HR* Dextrose 50 % in Water (Syg) 50 ML SYRINGE IVP PRN (10:43)
[2021-01-30 16:40] LABS: ABG Base Excess -8 mEq/L (-2 to 3); ABG HCO3 14 mEq/L (21-27); ABG Oxygen Saturation 95 % (95-98); ABG PCO2 23 mmHg (35-45); ABG PH 7.41 pH Units (7.32-7.45); ABG PO2 71 mmHg (85-104); ABG TCO2 15 mEq/L (20-26); Blood Gas Modality BiLevel
[2021-01-30] MEDS ORDERED: Clinimix 5%-20% SOLUTION 2,000 ML with MVI, adult with vitamin K 10 ML, Sodium Acetat... IVC SCH (17:00)
[2021-01-30] MEDS ORDERED: Sodium Bicarbonate 75 MEQ in 0.45 % Sodium Chloride 1,000 ML IVC SCH (17:03)
[2021-01-31 02:44] VITALS: BP 146/52; PULSE 110; TEMP 99.4; O2SAT 100
[2021-01-31 03:12] LABS: Sodium, Urine 12.7 mEq/L
[2021-01-31] MEDS ORDERED: Cyanocobalamin (B-12) 1,000 MCG/ML VIAL SQ SCH (09:00)
== END 2021-01-31 05:59 | disposition expired | DRG 871 ==
LOC: EMEROOARM 17:46 → 3ANU 21:48 → SUATTDRO 21:48 → 3BNU 22:00 → 2NENU 01-22 10:06 → 2NNU 01-30 18:29
PROVIDERS: ADMIT Student in an Organized Health Care Education/Training Program; ATTEND Internal Medicine